=== PATIENT | female | born 1990 | race Caucasian/White ===

== ENCOUNTER 2018-03-23 18:45 | Outpatient (CLI) | payer OTHER | END 2018-03-23 20:36 | disposition home or self-care (01) | LOC: M LDO 18:45 | DX: O26.893 Other specified pregnancy related conditions, third trimester (principal); R10.30 Lower abdominal pain, unspecified; M54.5 Low back pain; O47.03 False labor before 37 completed weeks of gestation, third trimester; Z3A.35 35 weeks gestation of pregnancy | CPT/HCPCS: 59025 ==

== ENCOUNTER 2018-04-11 21:50 | Outpatient (CLI) | payer OTHER | END 2018-04-12 01:43 | disposition home or self-care (01) | LOC: M LDO 21:50 | DX: O47.1 False labor at or after 37 completed weeks of gestation (principal); O26.893 Other specified pregnancy related conditions, third trimester; M54.5 Low back pain; Z3A.38 38 weeks gestation of pregnancy | CPT/HCPCS: 59025 ==

== ENCOUNTER 2018-04-17 12:18 | Inpatient (IN) | payer OTHER ==
[2018-04-17] MEDS: LR 1,000 ML IV (13:38)
[2018-04-17] MEDS: OXYTOCIN DRIP 30 UNITS in APPROPRIATE DILUENT 1 EA IV (13:39)
[2018-04-17 13:48] LABS: HEMATOCRIT 28.8 % (36.0-47.0); HEMOGLOBIN 9.3 g/dl (12.0-15.5); MEAN CORPUSCULAR HGB CONC 32.3 g/dl (32.0-36.5); MEAN CORPUSCULAR VOLUME 89.7 fl (80.0-96.0); PLATELET COUNT, AUTOMATED 141 10^3/uL (150-450); RED BLOOD COUNT 3.21 10^6/uL (4.00-5.40); RED CELL DISTRIBUTION WIDTH 13.4 % (11.5-14.5); WHITE BLOOD COUNT 5.2 10^3/uL (4.0-10.0)
[2018-04-17] MEDS: LACTATED RINGER'S 1000 ML IV (17:54)
[2018-04-17] MEDS ORDERED: FENTANYL 2MCG/ML ROPIVACAINE 0.2% IN 0.9% NACL 200ML IVBAG As Ordered (18:27)
[2018-04-17] MEDS: FENTANYL/ROPIVACAINE/NACL BAG 200 ML EPIDURAL (18:38)
[2018-04-17] MEDS ORDERED: LACTATED RINGER'S 1000 ML IV (18:50)
[2018-04-17] MEDS ORDERED: EPIDURAL COMMENT XX (18:50)
[2018-04-17] MEDS ORDERED: REFRIGERATOR IV KEYS XX (18:50)
[2018-04-17] MEDS ORDERED: NALOXONE INJ 0.4 MG/1 ML VIAL (J2310) IV (18:50)
[2018-04-17] MEDS ORDERED: ePHEDrine SULFATE 25 MG/5 ML(5MG/ML) SYRINGE IV (18:50)
[2018-04-17] MEDS ORDERED: diphenhydrAMINE INJ 50MG/ML VIAL (J1200) IV (18:50)
[2018-04-17] MEDS ORDERED: EPIDURAL/PCA KEYS XX (18:50)
[2018-04-17] MEDS: ONDANSETRON 4MG/2ML VIAL (J2405) IV (21:51)
[2018-04-18] MEDS ORDERED: METHYLERGONOVINE MALEATE 0.2 MG TAB PO (00:45)
[2018-04-18] MEDS ORDERED: MOM 30ML SUSPENSION UDC PO (00:45)
[2018-04-18] MEDS ORDERED: ANUSOL HC CREAM 30GM TOP (00:45)
[2018-04-18] MEDS ORDERED: MEASLES,MUMPS,RUBELLA VACCINE INJ (MMR-II) (90707) SC (00:45)
[2018-04-18] MEDS ORDERED: DIBUCAINE 1% OINTMENT 30GM TOP (00:45)
[2018-04-18] MEDS ORDERED: RHOGAM 300 MCG (1500 IU) INJ (J2790) IM (00:45)
[2018-04-18] MEDS: IBUPROFEN 800 MG TAB PO ×2 (02:08→15:54)
[2018-04-18] MEDS: ACETAMINOPHEN 500 MG TAB PO (07:23)
[2018-04-18] MEDS: PRENATAL VITAMINS CHEWABLE TABLET PO (07:24)
[2018-04-18] MEDS: DOCUSATE SODIUM 100 MG CAP PO (07:24)
[2018-04-18] MEDS: SIMETHICONE 80 MG CHEW TAB PO (08:50)
[2018-04-18] MEDS ORDERED: INFLUENZA QUADRIVALENT PF VACCINE 0.5ML SYRINGE (90686) IM ×2 (09:00→12:00)
[2018-04-18] MEDS: FERROUS SULFATE 325MG TAB PO (12:00)
[2018-04-19] MEDS: IBUPROFEN 800 MG TAB PO (01:37)
[2018-04-19] MEDS: PRENATAL VITAMINS CHEWABLE TABLET PO (08:24)
[2018-04-19] MEDS: FERROUS SULFATE 325MG TAB PO (08:24)
[2018-04-19] MEDS: INFLUENZA QUADRIVALENT PF VACCINE 0.5ML SYRINGE (90686) IM (08:25)
== END 2018-04-19 10:14 | disposition home or self-care (01) | DRG 807 ==
LOC: M LDI 12:18 → M OBS 04-18 02:45 → M LDI 18:18
PROVIDERS: Advanced Practice Midwife
PROC: 10E0XZZ Delivery of Products of Conception, External Approach (ICD-10-PCS; principal; 2018-04-18)
PROC: 0HQ9XZZ Repair Perineum Skin, External Approach (ICD-10-PCS; 2018-04-18)
PROC: 10907ZC Drainage of Amniotic Fluid, Therapeutic from Products of Conception, Via Natural or Artificial Opening (ICD-10-PCS; 2018-04-18)
DX: O69.82X0 Labor and delivery complicated by other cord entanglement, without compression, not applicable or unspecified (principal); Z37.0 Single live birth; Z3A.39 39 weeks gestation of pregnancy; O70.0 First degree perineal laceration during delivery

== ENCOUNTER → 2018-08-24 | Outpatient (REF) | payer OTHER ==
[~2018-08-24] MED LIST: ACET500T15 PO; MAPA500T2 PO; MOTR200T44 PO; PEPC10TA6 PO; PRENTAB9 PO
[2018-08-24 15:27] LABS: CHLAMYDIA DNA AMPLIFICATION NEGATIVE (NEGATIVE); GC DNA AMPLIFICATION NEGATIVE (NEGATIVE)
== END ==
LOC: M LAB REF 13:00
PROVIDERS: ATTEND Advanced Practice Midwife
DX: Z30.430 Encounter for insertion of intrauterine contraceptive device (principal)

== ENCOUNTER → 2018-09-27 | Outpatient (CLI) | payer OTHER ==
[2018-09-27 14:02] LABS: BASO % 0.5 % (0.0-1.0); EOS % 1.1 % (0.0-3.0); HEMATOCRIT 39.5 % (36.0-47.0); HEMOGLOBIN 12.8 g/dl (12.0-15.5); LYMPH # 1.5 10^3/uL (1.5-6.5); LYMPH % 40.7 % (24.0-44.0); MEAN CORPUSCULAR HEMOGLOBIN 30.2 pg (27.0-33.0); MEAN CORPUSCULAR HGB CONC 32.4 g/dl (32.0-36.5); MEAN CORPUSCULAR VOLUME 93.2 fl (80.0-96.0); MONO # 0.4 10^3/uL (0.0-0.8); MONO % 11.6 % (0.0-5.0); NEUTROPHILS # 1.7 10^3/uL (1.8-7.7); NEUTROPHILS % 45.8 % (36.0-66.0); PLATELET COUNT, AUTOMATED 176 10^3/uL (150-450); RED BLOOD COUNT 4.24 10^6/uL (4.00-5.40); WHITE BLOOD COUNT 3.7 10^3/uL (4.0-10.0)
[2018-09-27 14:08] LABS: ALBUMIN 4.3 GM/DL (3.2-5.2); ALT/SGPT 14 U/L (12-78); BILIRUBIN,TOTAL 0.4 MG/DL (0.2-1.0); BLOOD UREA NITROGEN 11 MG/DL (7-18); CALCIUM LEVEL 9.3 MG/DL (8.5-10.1); CARBON DIOXIDE LEVEL 29 MEQ/L (21-32); CHLORIDE LEVEL 106 MEQ/L (98-107); CHOLESTEROL LEVEL 181 MG/DL (<200); CHOLESTEROL RISK RATIO 2.784 (<5); CREATININE FOR GFR 0.72 MG/DL (0.55-1.30); FREE T4 0.96 NG/DL (0.76-1.46); GLOMERULAR FILTRATION RATE > 60.0 (>60); GLUCOSE, FASTING 82 MG/DL (70-100); HDL CHOLESTEROL 65 MG/DL (>40); LDL CHOLESTEROL 102 MG/DL (<100); NON-HDL-C 116 MG/DL; POTASSIUM SERUM 4.2 MEQ/L (3.5-5.1); SODIUM LEVEL 138 MEQ/L (136-145); TOTAL PROTEIN 7.4 GM/DL (6.4-8.2); TRIGLYCERIDES LEVEL 68 MG/DL (<150)
== END ==
LOC: M SMT 10:10
PROVIDERS: ATTEND Physician Assistant
DX: Z13.29 Encounter for screening for other suspected endocrine disorder (principal)

== ENCOUNTER → 2019-03-17 | Outpatient (CLI) | payer OTHER ==
--- NOTE | 2019-03-17 09:39 | REP ---
Pelvic sonography: History: Dyspareunia. Left-sided pain. Unspecified ovarian cyst. Findings: Transabdominal and transvaginal scanning are performed. Uterus is normal in size with dimensions of 7.4 x 3.5 x 4.8 cm endometrial stripe 0.7 cm thick. The right ovary surgically absent. The left ovarian dimensions are 5.3 x 2.2 x 2.4 cm. There are multiple small follicles in the left ovary. No cul-de-sac fluid. Impression: No abnormality noted. Right ovary surgically absent. Electronically Signed by Darian Fairchild MD 03/17/2019 07:34 P
== END ==
LOC: M LRY 07:58
PROVIDERS: ATTEND Obstetrics & Gynecology
DX: N83.209 Unspecified ovarian cyst, unspecified side (principal)

== ENCOUNTER → 2019-09-12 | Outpatient (CLI) | payer OTHER | LOC: M LABSMTC 10:30 | PROVIDERS: ATTEND Family Medicine | DX: Z11.59 Encounter for screening for other viral diseases (principal); Z20.828 Contact with and (suspected) exposure to other viral communicable diseases ==

== ENCOUNTER → 2020-08-27 | Outpatient (REF) | payer OTHER ==
[2020-08-27 14:44] LABS: HEMATOCRIT 37.5 % (36.0-47.0); HEMOGLOBIN 12.7 g/dl (12.0-15.5); MEAN CORPUSCULAR HEMOGLOBIN 31.5 pg (27.0-33.0); MEAN CORPUSCULAR HGB CONC 33.9 g/dl (32.0-36.5); MEAN CORPUSCULAR VOLUME 93.1 fl (80.0-96.0); PLATELET COUNT, AUTOMATED 186 10^3/uL (150-450); RED BLOOD COUNT 4.03 10^6/uL (4.00-5.40)
[2020-08-27 15:40] LABS: CHLAMYDIA DNA AMPLIFICATION NEGATIVE (NEGATIVE); GC DNA AMPLIFICATION NEGATIVE (NEGATIVE)
[2020-08-27 16:04] LABS: HEPATITIS C VIRUS ABY INDEX < 0.0 INDEX (<0.8); HIV 1&2 SCREEN CENTAUR NEGATIVE (NEGATIVE)
== END ==
LOC: M PLALAB 10:26
PROVIDERS: ATTEND Obstetrics & Gynecology
DX: Z36.89 Encounter for other specified antenatal screening (principal); Z34.91 Encounter for supervision of normal pregnancy, unspecified, first trimester

== ENCOUNTER → 2020-10-21 | Outpatient (CLI) | payer OTHER ==
--- NOTE | 2020-10-22 17:10 | REP ---
INDICATION: ANATOMY COMPARISON: None. TECHNIQUE: Transabdominal obstetrical ultrasound with color Doppler evaluation. FINDINGS: Examination demonstrates a single live intrauterine in cephalic presentation. motion is identified by technologist. Placenta is noted anterior and grade 1 without evidence for placenta previa or abruption. Amniotic fluid volume is normal. Cervix measures 3.2 cm in length and appears closed. There is a small cystic area along the posterior aspect of the uterus and possible posterior succenturiate lobe.. Gestational age by LMP 18 weeks 6 days with JORGE 03/18/2021. Gestational age by current measurements 18 weeks 4 days with JORGE 03/20/2021. FHR equals 155 beats per minute. Estimated weight 242 grams (25thpercentile). Anatomical assessment demonstrates normal structures including cranium, choroid plexus, cavum, cerebellum/posterior fossa, lungs, four-chamber heart, diaphragm, stomach, cord insertion/three-vessel cord, kidneys/bladder, spine, and extremities. IMPRESSION: 1. Possible posterior succenturiate lobe to the placenta and cystic area which may represent placental interiano. Consider follow-up. 2. Limited evaluation of the facial features and cardiac ventricular outflow tracts warrant follow-up. <Electronically signed by Alvaro Hill > 10/22/20 [id number]
== END ==
LOC: M WHC 08:25
PROVIDERS: ATTEND Obstetrics & Gynecology
DX: Z34.82 Encounter for supervision of other normal pregnancy, second trimester (principal)

== ENCOUNTER → 2020-11-20 | Outpatient (CLI) | payer OTHER ==
--- NOTE | 2020-11-20 13:56 | REP ---
INDICATION: F/U ANATOMY. COMPARISON: Comparison obstetric sonography October 21, 2020.. TECHNIQUE: Transabdominal obstetric sonography. FINDINGS: Scanning through the gravid uterus demonstrates a viable single intrauterine gestation in cephalic lie. motion is observed and heart rate is recorded at 146 beats per minute. A anterior placenta is seen, grade 0, without evidence of placenta previa. Closed cervical length is measured at 3.6 cm transabdominally. No extrauterine abnormality is observed. Amniotic fluid is subjectively normal. Four-chamber heart, left ventricular outflow tract, right ventricular outflow tract, face, facial profile, nose and lips are visualized today and are felt to be unremarkable. These structures had been less than optimally identified previously.. Biometry chart: BPD 5.5 cm, 22 weeks 6 days Head circumference 20.6 cm, 22 weeks 5 days Abdominal circumference 19.2 cm, 24 weeks 0 days Femur length 4.1 cm, 23 weeks 1 day Humeral length 3.7 cm, 22 weeks 5 days HC AC ratio normal 1.07 Cephalic index normal 0.74 Estimated weight 598 g, 1 lb 5 oz, 59th percentile for 23 weeks 1 day IMPRESSION: Viable single intrauterine gestation at 23 weeks 1 days by today's composite sonographic criteria. JORGE by today's sonography March 18, 2021. No complication identified. Expected gestational age estimate based on known JORGE of March 18, 2021 is 23 weeks 1 day. In conjunction with the prior study, anatomic survey is felt to be complete. <Electronically signed by Shon Fairchild > 11/20/20 [id number]
== END ==
LOC: M WHC 10:46
PROVIDERS: ATTEND Obstetrics & Gynecology
DX: Z34.82 Encounter for supervision of other normal pregnancy, second trimester (principal)

== ENCOUNTER → 2020-12-19 | Outpatient (CLI) | payer OTHER ==
[2020-12-19 13:18] LABS: HEMATOCRIT 35.7 % (36.0-47.0); HEMOGLOBIN 11.7 g/dl (12.0-15.5); MEAN CORPUSCULAR HEMOGLOBIN 31.9 pg (27.0-33.0); MEAN CORPUSCULAR HGB CONC 32.8 g/dl (32.0-36.5); MEAN CORPUSCULAR VOLUME 97.3 fl (80.0-96.0); PLATELET COUNT, AUTOMATED 132 10^3/uL (150-450); RED BLOOD COUNT 3.67 10^6/uL (4.00-5.40); WHITE BLOOD COUNT 7.1 10^3/uL (4.0-10.0)
== END ==
LOC: M PLALAB 11:20
PROVIDERS: ATTEND Advanced Practice Midwife
DX: O99.342 Other mental disorders complicating pregnancy, second trimester (principal)
CPT/HCPCS: 36415; 82950; 85027; 86850; 86900; 86901; J2790

== ENCOUNTER 2021-02-06 16:46 | Observation (INO) | payer OTHER ==
[~2021-02-06] VITALS: Ht 175.3 cm; Wt 81.4 kg
[2021-02-06] VITALS (10 sets, daily range): BP systolic 115–143; BP diastolic 64–82
[2021-02-06] MEDS ORDERED: ADDE12.5 PO (17:15)
[2021-02-06] MEDS ORDERED: REGL5TAB2 PO (17:15)
[2021-02-06] MEDS ORDERED: HOME MED LIST COMPLETE! XX SCH (17:20)
[2021-02-06] MEDS ORDERED: LR 1,000 ML IV ONE (17:25)
[2021-02-06] MEDS ORDERED: TERBUTALINE SULFATE 1 MG/ML VIAL (J3105) SC STA (20:09)
[2021-02-06] MEDS ORDERED: BUTORPHANOL 2 MG/ML INJ (J0595) IV ONE (20:10)
[2021-02-06] MEDS ORDERED: PROMETHAZINE INJ 25 MG/ML VIAL (J2550) IV ONE (20:10)
--- NOTE | 2021-02-06 20:17 | IPNPDOC ---
Obstetrical Progress Note Date of Service Feb 06, 2021 Subjective 30-year-old -0-0-3 at 34+2 weeks gestation. She has been having lower pelvic pain/pressure, low back pain, and frequent uterine contractions that are uncomfortable all day long. States she had intercourse last night and had a small amount of bleeding shortly thereafter. The bleeding did not persist. She denies any recent passage of bright red blood or blood clot. She denies any loss of fluid. She reports regular movement. She was seen in the office earlier today and was evaluated given these complaints. She was found to be 1 cm dilated 75% effaced and -3 station. Since she was still vin painfully and appearing uncomfortable she was sent to the labor and delivery for further evaluation. Review of systems: Denies fever, chills, headache, lightheadedness/dizziness, nausea, vomiting, shortness of breath, chest pain. 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 A/P: 30-year-old G4, P3 at 34+2 weeks gestation with contractions but no evidence of active labor/advanced cervical dilation or ruptured membranes. Reassuring status. -Terbutaline 0.25 mg SC x1 for symptomatic relief -Stadol and Phenergan for continued relief/rest -Tylenol 1000 mg p.o. every 6 hours as needed for pain -IV hydration -Continuous monitoring -CBC, coag panel, KB ordered -Betamethasone course ordered Jose Villegas DO Objective Vital Signs Date Time Temp Pulse Resp B/P (MAP) Pulse Ox O2 Delivery O2 Flow Rate FiO2 02/06/21 19:01 71 16 133/82 (99) 02/06/21 17:07 97.9 DIMA VILLEGAS DO Feb 06, 2021 20:17
[2021-02-06] MEDS: ACETAMINOPHEN 500 MG TAB PO PRN (20:24)
[2021-02-06] MEDS: LR 1,000 ML IV SCH (20:25)
[2021-02-06 20:42] LABS: HEMATOCRIT 32.6 % (36.0-47.0); HEMOGLOBIN 10.9 g/dl (12.0-15.5); MEAN CORPUSCULAR HGB CONC 33.4 g/dl (32.0-36.5); MEAN CORPUSCULAR VOLUME 95.6 fl (80.0-96.0); PLATELET COUNT, AUTOMATED 122 10^3/uL (150-450); RED BLOOD COUNT 3.41 10^6/uL (4.00-5.40); WHITE BLOOD COUNT 7.3 10^3/uL (4.0-10.0)
[2021-02-06 20:52] LABS: INR 1.03; PROTHROMBIN TIME 13.9 SECONDS (12.7-14.5)
[2021-02-06 20:53] LABS: PARTIAL THROMBOPLASTIN TIME 26.7 SECONDS (25.9-37.0)
[2021-02-06] MEDS: BETAMETHASONE SOLUSPAN 6MG/ML 5ML VIAL (J0702 PER 3MG) IM SCH (21:35)
[2021-02-07] VITALS (12 sets, daily range): BP systolic 112–133; BP diastolic 55–77
[2021-02-07] MEDS ORDERED: CALCIUM CARBONATE 500 MG CHEW U/D PO PRN (01:25)
[2021-02-07] MEDS: LR 1,000 ML IV SCH ×3 (04:13→17:14)
[2021-02-07] MEDS: ACETAMINOPHEN 500 MG TAB PO PRN (04:14)
[2021-02-07 09:38] LABS: APPEARANCE, URINE CLEAR (CLEAR); BACTERIA, URINE AUTO NEGATIVE (NEGATIVE); BILIRUBIN, URINE AUTO NEGATIVE (NEGATIVE); BLOOD, URINE BLOOD NEGATIVE (NEGATIVE); COLOR, URINE STRAW (YELLOW); GLUCOSE, URINE (UA) AUTO NEGATIVE (NEGATIVE); KETONE, URINE AUTO 1+ mg/dL (NEGATIVE); LEUKOCYTE ESTERASE, URINE AUTO NEGATIVE (NEGATIVE); MUCUS, URINE SMALL (NEGATIVE); NITRITE, URINE AUTO NEGATIVE (NEGATIVE); PROTEIN, URINE AUTO NEGATIVE (NEGATIVE); RBC, URINE AUTO 0 /HPF (0-3); SPECIFIC GRAVITY URINE AUTO 1.008 (1.002-1.035); SQUAMOUS EPITHELIAL CELL UR AU 0 /HPF (0-6); UROBILINOGEN, URINE AUTO 0.2 mg/dL (0.0-2.0); WBC, URINE AUTO 0 /HPF (0-3)
--- NOTE | 2021-02-07 10:11 | REP ---
INDICATION: bilateral flank pain. Patient at approximately 34 weeks gestation. COMPARISON: None. TECHNIQUE: Urinary tract sonography. FINDINGS: Scanning at the level of the urinary bladder shows no abnormality. Emptying ureteral jets are confirmed into the urinary bladder from both ureters. Renal cortical echogenicity pattern is normal bilaterally and contours are smooth. There is mild high hydronephrosis and hydroureter on the right. No hydronephrosis on the left. No stone, mass, or cyst seen in either kidney. The right kidney measures 13.0 x 7.1 x 6.3 cm. Left renal dimensions are 11.7 x 6.1 x 6.2 cm. heart rate is recorded during the examination at 136 beats per minute. IMPRESSION: Mild right-sided hydronephrosis and hydroureter. Emptying ureteral jets are confirmed from both ureters on color Doppler interrogation of the bladder lumen. Otherwise negative. <Electronically signed by Shon Fairchild > 02/07/21 1007
[2021-02-07] MEDS ORDERED: CYCLOBENZAPRINE 10MG TABLET PO ONE (13:00)
[2021-02-07] MEDS ORDERED: PERCOCET 5MG/325MG TAB PO PRN (14:10)
[2021-02-07] MEDS ORDERED: PERCOCET PO (18:37)
[2021-02-07] MEDS ORDERED: ADDE12.5 PO (18:37)
[2021-02-07] MEDS: BETAMETHASONE SOLUSPAN 6MG/ML 5ML VIAL (J0702 PER 3MG) IM SCH (18:43)
[2021-02-07] MEDS ORDERED: ADDE1TAB14 PO (19:00)
--- NOTE | 2021-02-07 19:11 | IPNPDOC ---
Text Note Date of Service The patient was seen on 02/07/21. NOTE Subjective: Damien is a 30-year old who is 34.3 weeks gestation. She was sent over to L&D with complaints of cramping, back pain, and bright red bleeding that occurred after having sex. She continued to be uncomfortable and was seen at her appointment and found to be 1 cm and 75% effaced. She was found to have dark brown blood with exam. She was sent over to L&D. She received betamethasone IM and is beta complete. Her contractions have decreased. She does report back pain and has a history of kidney stones. Her pain improved with a muscle relaxer and a Percocet. Patient reports she desires to go home. Objective: Labs, VS, imaging: see below. FHR: 130, moderate variability, positive accelerations, no decelerations. [place]: occasional contractions General: Alert and oriented. Does not appear to be in any distress. Respiratory: Regular rate and rhythm. No use of accessory muscles. Abdomen: gravid, soft and not tender with palpation SVE: no change after 24 hours, no show Assessment: IUP at 34.3 weeks gestation, back pain, right hydronephrosis and hydroureter, not in labor. Plan: Patient discharged to home with precautions. She is to follow-up with her routine OB appointment. Reviewed any changes including severe back pain, body aches, chills and fever that she should call. Reviewed access to care, kick count, labor signs and danger signs to report. VS,Fishbone, I+O VS, Fishbone, I+O Laboratory Tests 02/06/21 20:25 Vital Signs Date Time Temp Pulse Resp B/P (MAP) Pulse Ox O2 Delivery O2 Flow Rate FiO2 02/07/21 17:15 96 119/65 (83) 02/07/21 15:03 98.3 02/07/21 14:55 18 02/07/21 14:25 Room Air Item Value Date Time Urine Color STRAW 02/07/21923 Urine Appearance CLEAR 02/07/21923 Urine pH 7.0 UNITS 02/07/21923 Urine Specific [place] 1.008 02/07/21923 Urine Protein NEGATIVE mg/dL 02/07/21923 Urine Glucose (Auto)(UA) NEGATIVE mg/dL 02/07/21923 Urine Ketones (Auto) 1+ mg/dL H 02/07/21923 Urine Blood NEGATIVE 02/07/21923 Urine Nitrite NEGATIVE 02/07/21923 Urine Bilirubin NEGATIVE 02/07/21923 Urine Urobilinogen 0.2 mg/dL 02/07/21923 Urine Leukocyte Esterase (Auto) NEGATIVE 02/07/21923 Urine WBC (Auto) 0 /HPF 02/07/21923 Urine RBC (Auto) 0 /HPF 02/07/21923 Urine Hyaline Casts (Auto) 0 /LPF 02/07/21923 Urine Bacteria (Auto) NEGATIVE 02/07/21923 Urine Squamous Epithelial Cells 0 /HPF 02/07/21923 Urine Mucus (Auto) SMALL 02/07/21923 NAME: DAMIEN PEREZ DATE OF : 1990 AGE: 30 SEX: F REPORT #: [id number] ROOM: [facility] TECHNOLOGIST: [facility] DOCTOR: ALEXANDRIA KELLY CNM Ordered for Date&Time: 02/07/21854 cc: [~ rep ct ivnm] Service Date&Time: 02/07/21950 EXAMINATION REQUESTED: RENAL US REASON FOR PATIENT VISIT: LABOR CHECK REASON FOR EXAM/COMMENT: bilateral flank pain INDICATION: bilateral flank pain. Patient at approximately 34 weeks gestation. COMPARISON: None. TECHNIQUE: Urinary tract sonography. FINDINGS: Scanning at the level of the urinary bladder shows no abnormality. Emptying ureteral jets are confirmed into the urinary bladder from both ureters. Renal cortical echogenicity pattern is normal bilaterally and contours are smooth. There is mild high hydronephrosis and hydroureter on the right. No hydronephrosis on the left. No stone, mass, or cyst seen in either kidney. The right kidney measures 13.0 x 7.1 x 6.3 cm. Left renal dimensions are 11.7 x 6.1 x 6.2 cm. heart rate is recorded during the examination at 136 beats per minute. IMPRESSION: Mild right-sided hydronephrosis and hydroureter. Emptying ureteral jets are confirmed from both ureters on color Doppler interrogation of the bladder lumen. Otherwise negative. <Electronically signed by Shon Fairchild > 02/07/21 1007 ALEXANDRIA KELLY CNM Feb 07, 2021 19:10
--- OUTSIDE RECORDS SUMMARY | 2021-04-03 13:28 | CCD ---
Author Author [facility] Organization [facility] Address Unknown Phone Unavailable Care Team Providers Care Wharf Labourer Name Role Phone Charity Mays Unavailable PROBLEMS Type Condition ICD9-CM Code [id number] Code Onset Dates Condition S tatus W/U Status Risk SNOMED Code Notes Problem Supervision of other normal Z34.80 Ac tive confirm [id number] Problem ADHD F90.9 Active confirmed [id number] ALLERGIES No Known Allergies ENCOUNTERS from 1992 to 2021-03-31 Encounter Location Date Provider Diagnosis [facility] [address] [place] [address] [place] [address] Feb, Charity Mays Mental disorder affe cting in third trimester O99.343 ; Attention-deficit hyperactivity disorder, unspecified type F90.9 and 39 weeks gestation of Z3A.39 IMMUNIZATIONS Vaccine Route Administration Date Status TDAP 0.5mL Boostrix IM Intramuscular Jan 09, 2021 Administere d SOCIAL HISTORY Tobacco Use: Social History Observation [...] FOR REFERRAL No Information VITAL SIGNS Weight 197 lbs Feb, Weight-kg 89.36 kg Feb, Height 69 in 14 Feb, 2021 BMI 29.092 kg/m2 Feb, Blood pressure systolic 110 mm Hg Feb, Blood pressure diastolic 78 mm Hg Feb, MEDICATIONS Medication SIG (Take, Route, Frequency, Duration) Notes Start Da te End Date Status Adderall 10 MG 1 tablet Orally Twice a day for 30 days Feb, Active Vitamin 27-0.8 MG 1 tablet Orally Once a day Active Omeprazole 20 MG 1 capsule 30 minutes before morning meal Orally Once a day for 30 day(s) Dec, Active Dextroamphetamine Sulfate 10 MG 1 [...] Notes Treatment Notes Treatm ent Clinical Notes Feb, Mental disorder affecting pr egnancy in third trimester (ICD-10 - O99.343) Feb, Attention-deficit hyperactiv ity disorder, unspecified type (ICD-10 - F90.9) Feb, 39 weeks gestation of (ICD-10 - Z3A.39 ) PLAN OF TREATMENT No Information Insurance Providers Payer Name Payer Address Payer Phone Insured Name Patient Relati onship to Insured Coverage Start Date Coverage End Date [address] [phone] DAMIEN PEREZ
--- OUTSIDE RECORDS SUMMARY | 2021-04-03 13:28 | CCD ---
Author Author [facility] Organization [facility] Address Unknown Phone Unavailable Care Team Providers Care Mining Engineering Technologist Name Role Phone Charity Mays Unavailable PROBLEMS Type Condition ICD9-CM Code [id number] Code Onset Dates Condition S tatus W/U Status Risk SNOMED Code Notes Problem Supervision of other normal Z34.80 Ac tive confirm [id number] Problem ADHD F90.9 Active confirmed [id number] ALLERGIES No Known Allergies ENCOUNTERS from 1992 to 2021-03-19 Encounter Location Date Provider Diagnosis [facility] [address] [place] [address] [place] [address] Feb, Charity Mays Mental disorder affe cting in third trimester O99.343 ; Attention-deficit hyperactivity disorder, unspecified type F90.9 and 38 weeks gestation of Z3A.38 IMMUNIZATIONS Vaccine Route Administration Date Status TDAP [...] FOR REFERRAL No Information VITAL SIGNS Weight 196.4 lbs Feb, Weight-kg 89.09 kg Feb, Height 69 in Feb, BMI 29.003 kg/m2 Feb, Blood pressure systolic 110 mm Hg Feb, Blood pressure diastolic 80 mm Hg Feb, MEDICATIONS Medication SIG (Take, [...] disorder, unspecified type (ICD-10 - F90.9) Feb, 38 weeks gestation of (ICD-10 - Z3A.38 ) PLAN OF TREATMENT No Information Insurance Providers Payer Name Payer Address Payer Phone Insured Name Patient Relati onship to Insured Coverage Start Date Coverage End Date [address] [phone] DAMIEN PEREZ self
--- OUTSIDE RECORDS SUMMARY | 2021-04-03 13:28 | CCD | Continuity of Care Document ---
Author Mitzi Paez Organization [place] [address] Phone [phone] Care Team Providers Care Orthotic Aide Name Role Phone Ana Calix D.O. AUTM Kendall Mendoza M.D. AUTM [phone] Problems Active Problems Provider Date Attention deficit hyperactivity disorder, combined type RUFINA Butcher Onset: 08/25/2018 Suspected hypothyroidism RUFINA Ray Onset: 08/26/19 19 Irritable bowel syndrome characterized by constipation RUFINA Figueroa Onset: 08/25/2018 Mild recurrent major depression RUFINA Ray Onset: 0 11/13/2019 Generalized anxiety disorder RUFINA Ray Onset: 10/29 Vitamin D deficiency Ana Calix D.O. Onset: 04/18 Social History Type Date Description Comments Sex Unknown ETOH Use Currently consumes alcohol 1-2 p er week Tobacco Use Start: Unknown Patient has never smoked Recreational Drug Use Denies Drug Use Smoking Status Reviewed: 01/22/20 Patient has never smoked Exercise Type/Frequency Walks 3 times a week Sun Exposure Uses sunscreen Seat Belt/Car Seat Always uses seat belt Allergies and adverse reactions Description No Known Drug Allergies Medications Active Medications SIG Qnty Indications Ordering Provide r Date Ritalin 10mg Tablets take one tablet by mouth around 2 a m when working night shifts, as needed. 30tabs F90 .2 Ana Calix D.O. 07/12/[address] 1 by mouth every day 90caps K21.9 Jerry GruberO. 07/12 Mydayis 37.5mg Caps ER 24HR 1 by mouth every day. 30caps F90.2 Poonam Gruber.O. 06/20 Hydroxyzine HCL 25mg Tablets 1 tablet by mouth every 8 hours as needed 60tabs F41.1 Ana Cullen er, D.O. 11/13/2019 Ondansetron HCL 4mg Tablets 1 tablets by mouth every 6 hours as needed for nausea 14tabs Poonam Oneill.O. 10/18/2019 Fluticasone Propionate 50mcg/Act Suspension 2 spray each nostril once a day 16gm J31.0 Poonam Rodríguez.O. 05/15/2019 Multivitamin Adult Tablets 1 by mouth every day Unknown Medications Administered in Office Medication SIG Qnty Indications Ordering Provider Date Injection Ketorolac Tromethamine Per 15 MG (Toradol) Injection Jerry DuqueOTessa 01/22/2020 Immunizations CPT Code Status Date Vaccine Lot # [id number] Given 03/24/2021 Influenza Virus Vaccine, Quadrivalent, Slit Virus, Im Use [id number] Vital Signs Date Vital Result Comment 03/24/2021 10:30am BP Systolic 120 mmHg BP Diastolic 64 mmHg Height 68.1 inches 5'8.10" Weight 183.38 lb BMI (Body Mass Index) 27.8 kg/m2 Heart Rate 90 /min Respiratory Rate 18 /min Body Temperature 98.6 F O2 % BldC Oximetry 97 % [place] Body Weight 140 lb 07/12/2020 9:51am BP Systolic 130 mmHg BP Diastolic 78 mmHg Height 68.1 inches 5'8.10" Weight 167.50 lb BMI (Body Mass Index) 25.4 kg/m2 Heart Rate 95 /min Respiratory Rate 16 /min Body Temperature 98.8 F O2 % BldC Oximetry 98 % [place] Body Weight 140 lb Results Description No Information Available Procedures Date Code Description Status 03/24/2021 16709 Office/Outpatient Established Mo d MDM 30-39 Min Completed Medical Devices Description No Information Available Encounters Type Date Location Provider Dx Diagnosis Office Visit 03/24/2021 10:30a Family Medicine [facility] RUFINA Ray F90.2 Attention-deficit hyperactiv ity disorder, combined type K21.9 Gastro-esophageal reflux dis ease without esophagitis Z23 Encounter for immunization Assessments Date Code Description Provider 03/24/2021 F90.2 Attention-deficit hyperactivity disorder, combined type RUFINA Ray 03/24/2021 K21.9 Gastro-esophageal reflux disease without esophagitis RUFINA Ray 03/24/2021 Z23 Encounter for immunization RUFINA Figueroa Plan of Treatment Future Appointment(s):* 06/26/2021 2:30 pm - RUFINA Ray at [facility] Functional Status Description No Information Available Mental Status Description No Information Available Referrals Description No Information Available
--- OUTSIDE RECORDS SUMMARY | 2021-04-03 13:28 | CCD | Continuity of Care Document ---
Author Mitzi Paez Organization Unknown Address [place] [address] Phone [phone] Care Team Providers Care Cow Buyer Name Role Phone Ana Calix D.O. AUTM Kendall Mendoza M.D. AUTM [phone] Problems Active Problems Provider Date Attention deficit [...] CPT Code Status Date Vaccine Lot # [id number] Given 03/24/2021 Influenza Virus Vaccine, Quadrivalent, Slit Virus, Im Use [id number] Vital Signs Date Vital Result Comment 03/24/2021 10:30am BP Systolic 120 mmHg BP Diastolic 64 mmHg Height 68.1 inches 5'8.10" Weight 183.38 lb BMI (Body Mass Index) 27.8 kg/m2 Heart Rate 90 /min Respiratory Rate 18 /min Body Temperature 98.6 F O2 % BldC Oximetry 97 % [place] Body Weight 140 lb 07/12/2020 9:51am BP Systolic 130 mmHg BP Diastolic 78 mmHg Height 68.1 inches 5'8.10" Weight 167.50 lb BMI (Body Mass Index) 25.4 kg/m2 Heart Rate 95 /min Respiratory Rate 16 /min Body Temperature 98.8 F O2 % BldC Oximetry 98 % [place] Body Weight 140 lb Results Description No Information Available Procedures Date Code Description Status 03/24/2021 78507 Office/Outpatient Established Mo d MDM 30-39 Min Completed Medical Devices Description No Information Available Encounters Type Date Location Provider Dx Diagnosis Office Visit 03/24/2021 10:30a Family Medicine [facility] RUFINA Ray F90.2 Attention-deficit hyperactiv ity disorder, combined type K21.9 Gastro-esophageal reflux dis ease without esophagitis Z23 Encounter for immunization Assessments Date Code Description Provider 03/24/2021 F90.2 Attention-deficit hyperactivity disorder, combined type RUFINA Ray 03/24/2021 K21.9 Gastro-esophageal reflux disease without esophagitis RUFINA Ray 03/24/2021 Z23 Encounter for immunization RUFINA Figueroa Plan of Treatment Future Appointment(s):* 06/26/2021 2:30 pm - RUFINA Ray at [facility] Functional Status Description No Information Available Mental Status Description No Information Available Referrals Description No Information Available
--- OUTSIDE RECORDS SUMMARY | 2021-04-03 13:28 | CCD | Continuity of Care Document ---
Author Mitzi Paez Organization Unknown [place] [address] Phone [phone] Care Team Providers Care Waxer Name Role Phone Ana Calix D.O. AUTM [phone] Kendall Mendoza M.D. AUTM [phone] Problems Active Problems Provider Date Attention deficit [...] CPT Code Status Date Vaccine Lot # [id number] Given 03/24/2021 Influenza Virus Vaccine, Quadrivalent, Slit Virus, Im Use [id number] Vital Signs Date Vital Result Comment 03/24/2021 10:30am BP Systolic 120 mmHg BP Diastolic 64 mmHg Height 68.1 inches 5'8.10" Weight 183.38 lb BMI (Body Mass Index) 27.8 kg/m2 Heart Rate 90 /min Respiratory Rate 18 /min Body Temperature 98.6 F O2 % BldC Oximetry 97 % [place] Body Weight 140 lb 07/12/2020 9:51am BP Systolic 130 mmHg BP Diastolic 78 mmHg Height 68.1 inches 5'8.10" Weight 167.50 lb BMI (Body Mass Index) 25.4 kg/m2 Heart Rate 95 /min Respiratory Rate 16 /min Body Temperature 98.8 F O2 % BldC Oximetry 98 % [place] Body Weight 140 lb Results Description No Information Available Procedures Date Code Description Status 03/24/2021 51907 Office/Outpatient Established Mo d MDM 30-39 Min Completed Medical Devices Description No Information Available Encounters Type Date Location Provider Dx Diagnosis Office Visit 03/24/2021 10:30a Family Medicine [facility] RUFINA Ray F90.2 Attention-deficit hyperactiv ity [...]
--- OUTSIDE RECORDS SUMMARY | 2021-04-03 13:29 | CCD ---
Author Author [facility] Organization [facility] Address Unknown Phone Unavailable Care Team Providers Care News Production Supervisor Name Role Phone Charity Mays Unavailable PROBLEMS Type Condition ICD9-CM Code JOF37-SI Code Onset Dates Condition S tatus W/U Status Risk SNOMED Code Notes Problem Supervision of other normal Z34.80 Ac tive confirm [id number] Problem ADHD F90.9 Active confirmed [id number] ALLERGIES No Known Allergies ENCOUNTERS from 1992 to 2021-03-19 Encounter Location Date Provider Diagnosis [facility] [address] [place] [address] [place] [address] Feb, Charity Mays IMMUNIZATIONS Vaccine Route Administration [...] Information RESULTS No Results REASON FOR VISIT [facility] MEDICAL (GENERAL) HISTORY Type Description Date Medical History ADHD Surgical History Right ovary removed Surgical History Breast augmentation implants Hospitalization History childbirth Hospitalization History surgical related Goals Section No Information Health Concerns No Information MEDICAL EQUIPMENT No Information MENTAL STATUS No Information FUNCTIONAL STATUS No Information ASSESSMENTS No Information PLAN OF TREATMENT No Information Insurance Providers Payer Name Payer Address Payer Phone Insured Name Patient Relati onship to Insured Coverage Start Date Coverage End Date [address] [phone] DAMIEN PEREZ self
--- OUTSIDE RECORDS SUMMARY | 2021-04-03 13:29 | CCD ---
Author Author [facility] Organization [facility] Address Unknown Phone Unavailable Care Team Providers Care Inspector Shells Name Role Phone Charity Mays Unavailable PROBLEMS Type Condition ICD9-CM Code [id number] Code Onset Dates Condition S tatus W/U Status Risk SNOMED Code Notes Problem Supervision of other normal Z34.80 Ac tive confirm [id number] Problem ADHD F90.9 Active confirmed [id number] ALLERGIES No Known Allergies ENCOUNTERS from 1992 to 2021-03-17 Encounter Location Date Provider Diagnosis [facility] [address] [place] [address] [place] [address] Feb, Charity Mays IMMUNIZATIONS Vaccine Route Administration [...] Information RESULTS No Results REASON FOR VISIT Induction MEDICAL (GENERAL) HISTORY Type Description Date Medical [...] Coverage Start Date Coverage End Date [address] [phone] DAMIEN PEREZ self
--- OUTSIDE RECORDS SUMMARY | 2021-04-03 13:30 | CCD ---
Author Author [facility] Organization [facility] Address Unknown Phone Unavailable Care Team Providers Care Gas Main And Line Fitter Name Role Phone NO, PCP Unavailable Unavailable LETTIERE, A ENMANUEL PA Unavailable Unavailable LETTIERE, A ENMANUEL PA Unavailable Unavailable LETTIERE, A ENMANUEL PA Unavailable Unavailable LETTIERE, A NEMANUEL PA Unavailable Unavailable LETTIERE, A ENMANUEL PA [...] LAROCKCarter NP Unavailable Unavailable LAROCK, J KRZYSZTOF FINAL INSPECTION SUPERVISOR Unavailable Unavailable LAROCK, J KRZYSZTOF FINAL INSPECTION SUPERVISOR Unavailable Unavailable LAROCK, J KRZYSZTOF FINAL INSPECTION SUPERVISOR Unavailable Unavailable LAROCK, J KRZYSZTOF FINAL INSPECTION SUPERVISOR Unavailable Unavailable LAROCK, J KRZYSZTOF FINAL INSPECTION SUPERVISOR Unavailable Unavailable LAROCK, J KRZYSZTOF FINAL INSPECTION SUPERVISOR Unavailable Unavailable LAROCK, J KRZYSZTOF FINAL INSPECTION SUPERVISOR Unavailable Unavailable LAROCK, J KRZYSZTOF FINAL INSPECTION SUPERVISOR Unavailable Unavailable LAROCK, J KRZYSZTOF FINAL INSPECTION SUPERVISOR Unavailable Unavailable LAROCK, J KRZYSZTOF FINAL INSPECTION SUPERVISOR Unavailable Unavailable LAROCK, J KRZYSZTOF FINAL INSPECTION SUPERVISOR Unavailable Unavailable LAROCK, J KRZYSZTOF FINAL INSPECTION SUPERVISOR Unavailable Unavailable LAROCK, J KRZYSZTOF FINAL INSPECTION SUPERVISOR Unavailable Unavailable LAROCK, J KRZYSZTOF FINAL INSPECTION SUPERVISOR Unavailable Unavailable LAROCK, J KRZYSZTOF FINAL INSPECTION SUPERVISOR Unavailable Unavailable LAROCK, J KRZYSZTOF FINAL INSPECTION SUPERVISOR Unavailable Unavailable LAROCK, J KRZYSZTOF FINAL INSPECTION SUPERVISOR Unavailable Unavailable LAROCK, J KRZYSZTOF FINAL INSPECTION SUPERVISOR Unavailable Unavailable LAROCK, J KRZYSZTOF FINAL INSPECTION SUPERVISOR Unavailable Unavailable Evaristo, Jhonathan WYNN Unavailable Unavailable Evaristo, Jhonathan WYNN Unavailable Unavailable Evaristo, Jhonathan WYNN Unavailable Unavailable Evaristo, Jhonathan WYNN Unavailable Unavailable Jung, Jhonathan WYNN Unavailable Unavailable Evaristo, Jhonathan WYNN Unavailable Unavailable TURRIN, REYNALDO Unavailable Unavailable TURRIN, [...] is protected by Article 27-F of the [facility] Public Health law. If you continue you may have access to information: Regarding HIV / AIDS; Provided by facilities licensed or operated by the [facility] Office of Mental Health; or Provided by the [facility] Office for People With Developmental Disabilities. If such information is present, then the following [facility] mandated warning applies: This information has been [...] law may result in a fine or custodial sentence or both. A general authorization for the release of medical or other information is NOT sufficient authorization for further disc losure. Family History Family Member Name Family Member Gender Family Member Status Date o f Status Description Data Source(s) Unknown Male Problem MEDENT ([facility]) Unknown Unknown Problem MEDENT ([facility], ) Encounters Encounter Providers Location Date Indications Data Source(s ) Outpatient Attender: Enmanuel ALMARAZ [facility] 03/24/2021 10:30:00 AM EDT MEDENT ([facility]) [place] [address] [facility] [address] 03/18/2021 12:00:00 AM EDT eCW1 ([facility]) [place] [address] [facility] [address] 03/16/2021 12:00:00 AM EDT eCW1 ([facility]) (WC ESTOB) [facility] [address] [place] [address] 03/13/2021 12:00:00 AM EDT eCW1 ([facility]) [place] [address] [facility] [address] 03/11/2021 12:00:00 AM EDT eCW1 ([facility]) (WC ESTOB) [facility] [address] [place] [address] 03/06/2021 12:00:00 AM EDT eCW1 ([facility]) Outpatient Attender: KRZYSZTOF READ NP 07/2020 11:48:29 AM EDT - 03/02/2021 12:33:17 PM EDT Doc[facility] ([facility] ) (WC ESTOB) [facility] [address] [place] [address] 02/27/2021 12:00:00 AM EDT eCW1 ([facility]) (WC ESTOB) [facility] [address] [place] [address] 02/20/2021 12:00:00 AM EDT eCW1 ([facility]) (WC ESTOB) [facility] [address] [place] [address] 02/06/2021 12:00:00 AM EDT eCW1 ([facility]) (WC ESTOB) [facility] [address] [place] [address] 01/24/2021 12:00:00 AM EDT eCW1 ([facility]) [place] [address] [facility] [address] 01/22/2021 12:00:00 AM EDT eCW1 ([facility]) [place] [address] [facility] [address] 01/21/2021 12:00:00 AM EDT eCW1 ([facility]) ( ESTOB) [facility] Est [facility] [address] [place] [address] 01/09/2021 12:00:00 AM EDT eCW1 ([facility]) ( ESTOB) [facility] Est [facility] [address] [place] [address] 12/18/2020 12:00:00 AM EDT eCW1 ([facility]) [place] [address] [facility] [address] 12/12/2020 12:00:00 AM EDT eCW1 ([facility]) [place] [address] [facility] [address] 12/11/2020 12:00:00 AM EDT eCW1 ([facility]) [place] [address] [facility] [address] 12/09/2020 12:00:00 AM EDT eCW1 ([facility]) [place] [address] [facility] [address] 12/09/2020 12:00:00 AM EDT eCW1 ([facility]) [place] [address] [facility] [address] 11/13/2020 12:00:00 AM EDT eCW1 ([facility]) [place] [address] [facility] [address] 11/11/2020 12:00:00 AM EDT eCW1 ([facility]) Outpatient Attender: KRZYSZTOF READ NP 01/2021 11:07:41 AM EDT - 11/06/2020 12:24:00 PM EDT [facility] ([facility] ) [place] [address] [facility] [address] 11/06/2020 12:00:00 AM EDT eCW1 ([facility]) [place] [address] [facility] [address] 11/06/2020 12:00:00 AM EDT eCW1 ([facility]) [place] [address] [facility] [address] 11/06/2020 12:00:00 AM EDT eCW1 ([facility]) (WC ESTOB) [facility] Est [facility] [address] [place] [address] 10/30/2020 12:00:00 AM EDT eCW1 ([facility]) (WC ESTOB) W[facility] Est OB [address] [place] [address] 10/11/2020 12:00:00 AM EDT eCW1 ([facility]) [place] [address] [facility] [address] 10/08/2020 12:00:00 AM EDT eCW1 ([facility]) [place] [address] [facility] [address] 10/08/2020 12:00:00 AM EDT eCW1 ([facility]) [place] [address] [facility] [address] 10/03/2020 12:00:00 AM EDT eCW1 ([facility]) [place] [address] [facility] [address] 09/24/2020 12:00:00 AM EDT eCW1 ([facility]) [place] [address] [facility] [address] 09/23/2020 12:00:00 AM EDT eCW1 ([facility]) (WC ESTOB) [facility] Est [facility] [address] [place] [address] 09/19/2020 12:00:00 AM EDT eCW1 ([facility]) (WC ESTOB) [facility] Est OB [address] [place] [address] 09/11/2020 12:00:00 AM EDT eCW1 ([facility]) Unknown [address] [facility], [facility] [address] 09/10/2020 12:00:00 AM EDT eCW1 ([facility]) Emergency Attender: Jhonathan Jung MDConsultant: PCP NO 09/08/2020 05:09:00 PM EDT - 09/08/2020 07:30:[address] [facility] [place] Patient discharged. Emergency Attender: REYNALDO GUEVARAConsultant: PCP NO 07/29/2020 08:08:00 PM EST - 07/30/2020 12:07:00 AM EST [facility] Patient discharged. Outpatient Attender: Enmanuel ALMARAZ [facility] 07/12/2020 08:30:00 AM EST MEDENT ([facility]) Outpatient Attender: Enmanuel ALMARAZ [facility] 04/18/2020 09:30:00 AM EST MEDENT ([facility]) Outpatient Attender: ENMANUEL kearnsy 04/02/2020 11:00:00 AM EST MEDENT ([facility]) (WC 20ESGYN) WCenter 20 Min Est Analytical Research Chemist [address] [place] [address] 03/05/2020 12:00:00 AM EDT eCW1 ([facility]) Outpatient Attender: Enmanuel ALMARAZ [facility] 02/13/2020 09:30:00 AM EDT MEDENT ([facility]) Immunizations Vaccine Date Status Description Data Source(s) New in 2012. IIV4 03/24/2021 10:50:00 AM EDT completed MEDENT ([facility]) Tdap 01/09/2021 02:20:00 PM EDT completed e CW1 ([facility]) 01/09/2021 02:20:00 PM EDT completed e CW1 ([facility]) Tdap 01/09/2021 02:20:00 PM EDT completed e CW1 ([facility]) 01/09/2021 02:20:00 PM EDT completed e CW1 ([facility]) Tdap 01/09/2021 02:20:00 PM EDT completed e CW1 ([facility]) 01/09/2021 02:20:00 PM EDT completed e CW1 ([facility]) Tdap 01/09/2021 02:20:00 PM EDT completed e CW1 ([facility]) 01/09/2021 02:20:00 PM EDT completed e CW1 ([facility]) Tdap 01/09/2021 02:20:00 PM EDT completed e CW1 ([facility]) 01/09/2021 02:20:00 PM EDT completed e CW1 ([facility]) Tdap 01/09/2021 02:20:00 PM EDT completed e CW1 ([facility]) 01/09/2021 02:20:00 PM EDT completed e CW1 ([facility]) Tdap 01/09/2021 02:20:00 PM EDT completed e CW1 ([facility]) 01/09/2021 02:20:00 PM EDT completed e CW1 ([facility]) Tdap 01/09/2021 02:20:00 PM EDT completed e CW1 ([facility]) 01/09/2021 02:20:00 PM EDT completed e CW1 ([facility]) Tdap 01/09/2021 02:20:00 PM EDT completed e CW1 ([facility]) 01/09/2021 02:20:00 PM EDT completed e CW1 ([facility]) Tdap 01/09/2021 02:20:00 PM EDT completed e CW1 ([facility]) 01/09/2021 02:20:00 PM EDT completed e CW1 ([facility]) Tdap 01/09/2021 02:20:00 PM EDT completed e CW1 ([facility]) 01/09/2021 02:20:00 PM EDT completed e CW1 ([facility]) Tdap 01/09/2021 02:20:00 PM EDT completed e CW1 ([facility]) 01/09/2021 02:20:00 PM EDT completed e CW1 ([facility]) Tdap 01/09/2021 02:20:00 PM EDT completed e CW1 ([facility]) Medications Medication Brand Name Start Date Product Form Dose Route Admi nistrative Instructions Pharmacy Instructions Status Indications Reaction Description Data Source(s) Amphetamine aspartate 2.5 MG / Amphetami ne Sulfate 2.5 MG / Dextroamphetamine saccharate 2.5 MG / Dextroamphetamine Sulfate 2.5 MG Oral Tablet [Adderall] Adderall 10 MG Adderall 10 MG 03/06/2021 12:00:00 AM EDT 1.0 {tablet} active Adderall 10 MG eCW1 ([facility]) Amphetamine aspartate 2.5 MG / Amphetami ne Sulfate 2.5 MG / Dextroamphetamine saccharate 2.5 MG / Dextroamphetamine Sulfate 2.5 MG Oral Tablet [Adderall] Adderall 10 MG Adderall 10 MG 03/06/2021 12:00:00 AM EDT 1.0 {tablet} active Adderall 10 MG eCW1 ([facility]) Amphetamine aspartate 2.5 MG / Amphetami ne Sulfate 2.5 MG / Dextroamphetamine saccharate 2.5 MG / Dextroamphetamine Sulfate 2.5 MG Oral Tablet [Adderall] Adderall 10 MG Adderall 10 MG 03/06/2021 12:00:00 AM EDT 1.0 {tablet} active Adderall 10 MG eCW1 ([facility]) Amphetamine aspartate 2.5 MG / Amphetami ne Sulfate 2.5 MG / Dextroamphetamine saccharate 2.5 MG / Dextroamphetamine Sulfate 2.5 MG Oral Tablet [Adderall] Adderall 10 MG Adderall 10 MG 03/06/2021 12:00:00 AM EDT 1.0 {tablet} active Adderall 10 MG eCW1 ([facility]) Amphetamine aspartate 2.5 MG / Amphetami ne Sulfate 2.5 MG / Dextroamphetamine saccharate 2.5 MG / Dextroamphetamine Sulfate 2.5 MG Oral Tablet [Adderall] Adderall 10 MG Adderall 10 MG 03/06/2021 12:00:00 AM EDT 1.0 {tablet} active Adderall 10 MG eCW1 ([facility]) Amphetamine aspartate 2.5 MG / Amphetami ne Sulfate 2.5 MG / Dextroamphetamine saccharate 2.5 MG / Dextroamphetamine Sulfate 2.5 MG Oral Tablet [Adderall] Adderall 10 MG Adderall 10 MG 03/06/2021 12:00:00 AM EDT 1.0 {tablet} active Adderall 10 MG eCW1 ([facility]) Amphetamine aspartate 2.5 MG / Amphetami ne Sulfate 2.5 MG / Dextroamphetamine saccharate 2.5 MG / Dextroamphetamine Sulfate 2.5 MG Oral Tablet [Adderall] Adderall 10 MG Adderall 10 MG 03/06/2021 12:00:00 AM EDT 1.0 {tablet} active Adderall 10 MG eCW1 ([facility]) Omeprazole 20 MG Delayed Release Oral Capsule Omeprazole 20 MG 01/09/2021 12:00:00 AM EDT active Omeprazo le 20 MG eCW1 ([facility]) Omeprazole 20 MG Delayed Release Oral Capsule Omeprazole 20 MG 01/09/2021 12:00:00 AM EDT active Omeprazo le 20 MG eCW1 ([facility]) Omeprazole 20 MG Delayed Release Oral Capsule Omeprazole 20 MG 01/09/2021 12:00:00 AM EDT active Omeprazo le 20 MG eCW1 ([facility]) Amphetamine aspartate 2.5 MG / Amphetami ne Sulfate 2.5 MG / Dextroamphetamine saccharate 2.5 MG / Dextroamphetamine Sulfate 2.5 MG Oral Tablet [Adderall] Adderall 10 MG Adderall 10 MG 01/09/2021 12:00:00 AM EDT 1.0 {tablet} active Adderall 10 MG eCW1 ([facility]) Omeprazole 20 MG Delayed Release Oral Capsule Omeprazole 20 MG 01/09/2021 12:00:00 AM EDT active Omeprazo le 20 MG eCW1 ([facility]) Omeprazole 20 MG Delayed Release Oral Capsule Omeprazole 20 MG 01/09/2021 12:00:00 AM EDT active Omeprazo le 20 MG eCW1 ([facility]) Omeprazole 20 MG Delayed Release Oral Capsule Omeprazole 20 MG 01/09/2021 12:00:00 AM EDT active Omeprazo le 20 MG eCW1 ([facility]) Omeprazole 20 MG Delayed Release Oral Capsule Omeprazole 20 MG 01/09/2021 12:00:00 AM EDT active Omeprazo le 20 MG eCW1 ([facility]) Omeprazole 20 MG Delayed Release Oral Capsule Omeprazole 20 MG 01/09/2021 12:00:00 AM EDT active Omeprazo le 20 MG eCW1 ([facility]) Amphetamine aspartate 2.5 MG / Amphetami ne Sulfate 2.5 MG / Dextroamphetamine saccharate 2.5 MG / Dextroamphetamine Sulfate 2.5 MG Oral Tablet [Adderall] Adderall 10 MG Adderall 10 MG 01/09/2021 12:00:00 AM EDT 1.0 {tablet} active Adderall 10 MG eCW1 ([facility]) Amphetamine aspartate 2.5 MG / Amphetami ne Sulfate 2.5 MG / Dextroamphetamine saccharate 2.5 MG / Dextroamphetamine Sulfate 2.5 MG Oral Tablet [Adderall] Adderall 10 MG Adderall 10 MG 01/09/2021 12:00:00 AM EDT 1.0 {tablet} active Adderall 10 MG eCW1 ([facility]) Omeprazole 20 MG Delayed Release Oral Capsule Omeprazole 20 MG 01/09/2021 12:00:00 AM EDT active Omeprazo le 20 MG eCW1 ([facility]) Omeprazole 20 MG Delayed Release Oral Capsule Omeprazole 20 MG 01/09/2021 12:00:00 AM EDT active Omeprazo le 20 MG eCW1 ([facility]) Omeprazole 20 MG Delayed Release Oral Capsule Omeprazole 20 MG 01/09/2021 12:00:00 AM EDT active Omeprazo le 20 MG eCW1 ([facility]) Amphetamine aspartate 2.5 MG / Amphetami ne Sulfate 2.5 MG / Dextroamphetamine saccharate 2.5 MG / Dextroamphetamine Sulfate 2.5 MG Oral Tablet [Adderall] Adderall 10 MG Adderall 10 MG 01/09/2021 12:00:00 AM EDT 1.0 {tablet} active Adderall 10 MG eCW1 ([facility]) Omeprazole 20 MG Delayed Release Oral Capsule Omeprazole 20 MG 01/09/2021 12:00:00 AM EDT active Omeprazo le 20 MG eCW1 ([facility]) Omeprazole 20 MG Delayed Release Oral Capsule Omeprazole 20 MG 01/09/2021 12:00:00 AM EDT active Omeprazo le 20 MG eCW1 ([facility]) Amphetamine aspartate 2.5 MG / Amphetami ne Sulfate 2.5 MG / Dextroamphetamine saccharate 2.5 MG / Dextroamphetamine Sulfate 2.5 MG Oral Tablet [Adderall] Adderall 10 MG Adderall 10 MG 01/09/2021 12:00:00 AM EDT 1.0 {tablet} active Adderall 10 MG eCW1 ([facility]) Amphetamine aspartate 2.5 MG / Amphetami ne Sulfate 2.5 MG / Dextroamphetamine saccharate 2.5 MG / Dextroamphetamine Sulfate 2.5 MG Oral Tablet [Adderall] Adderall 10 MG Adderall 10 MG 01/09/2021 12:00:00 AM EDT 1.0 {tablet} active Adderall 10 MG eCW1 ([facility]) Amphetamine aspartate 2.5 MG / Amphetami ne Sulfate 2.5 MG / Dextroamphetamine saccharate 2.5 MG / Dextroamphetamine Sulfate 2.5 MG Oral Tablet [Adderall] Adderall 10 MG Adderall 10 MG 12/13/2020 12:00:00 AM EDT 1.0 {tablet} active Adderall 10 MG eCW1 ([facility]) Amphetamine aspartate 2.5 MG / Amphetami ne Sulfate 2.5 MG / Dextroamphetamine saccharate 2.5 MG / Dextroamphetamine Sulfate 2.5 MG Oral Tablet [Adderall] Adderall 10 MG Adderall 10 MG 12/13/2020 12:00:00 AM EDT 1.0 {tablet} active Adderall 10 MG eCW1 ([facility]) Amphetamine aspartate 2.5 MG / Amphetami ne Sulfate 2.5 MG / Dextroamphetamine saccharate 2.5 MG / Dextroamphetamine Sulfate 2.5 MG Oral Tablet [Adderall] Adderall 10 MG Adderall 10 MG 12/10/2020 12:00:00 AM EDT 1.0 {tablet} active Adderall 10 MG eCW1 ([facility]) Amphetamine aspartate 2.5 MG / Amphetami ne Sulfate 2.5 MG / Dextroamphetamine saccharate 2.5 MG / Dextroamphetamine Sulfate 2.5 MG Oral Tablet [Adderall] Adderall 10 MG Adderall 10 MG 12/10/2020 12:00:00 AM EDT 1.0 {tablet} active Adderall 10 MG eCW1 ([facility]) Amphetamine aspartate 2.5 MG / Amphetami ne Sulfate 2.5 MG / Dextroamphetamine saccharate 2.5 MG / Dextroamphetamine Sulfate 2.5 MG Oral Tablet [Adderall] Adderall 10 MG Adderall 10 MG 11/12/2020 12:00:00 AM EDT 1.0 {tablet} active Adderall 10 MG eCW1 ([facility]) Amphetamine aspartate 2.5 MG / Amphetami ne Sulfate 2.5 MG / Dextroamphetamine saccharate 2.5 MG / Dextroamphetamine Sulfate 2.5 MG Oral Tablet [Adderall] Adderall 10 MG Adderall 10 MG 11/12/2020 12:00:00 AM EDT 1.0 {tablet} active Adderall 10 MG eCW1 ([facility]) Amphetamine aspartate 2.5 MG / Amphetami ne Sulfate 2.5 MG / Dextroamphetamine saccharate 2.5 MG / Dextroamphetamine Sulfate 2.5 MG Oral Tablet [Adderall] Adderall 10 MG Adderall 10 MG 11/12/2020 12:00:00 AM EDT 1.0 {tablet} active Adderall 10 MG eCW1 ([facility]) Amphetamine aspartate 2.5 MG / Amphetami ne Sulfate 2.5 MG / Dextroamphetamine saccharate 2.5 MG / Dextroamphetamine Sulfate 2.5 MG Oral Tablet [Adderall] Adderall 10 MG Adderall 10 MG 11/12/2020 12:00:00 AM EDT 1.0 {tablet} active Adderall 10 MG eCW1 ([facility]) Amphetamine aspartate 2.5 MG / Amphetami ne Sulfate 2.5 MG / Dextroamphetamine saccharate 2.5 MG / Dextroamphetamine Sulfate 2.5 MG Oral Tablet [Adderall] Adderall 10 MG Adderall 10 MG 10/09/2020 12:00:00 AM EDT 1.0 {tablet} active Adderall 10 MG eCW1 ([facility]) Amphetamine aspartate 2.5 MG / Amphetami ne Sulfate 2.5 MG / Dextroamphetamine saccharate 2.5 MG / Dextroamphetamine Sulfate 2.5 MG Oral Tablet [Adderall] Adderall 10 MG Adderall 10 MG 10/09/2020 12:00:00 AM EDT 1.0 {tablet} active Adderall 10 MG eCW1 ([facility]) Amphetamine aspartate 2.5 MG / Amphetami ne Sulfate 2.5 MG / Dextroamphetamine saccharate 2.5 MG / Dextroamphetamine Sulfate 2.5 MG Oral Tablet [Adderall] Adderall 10 MG Adderall 10 MG 10/09/2020 12:00:00 AM EDT 1.0 {tablet} active Adderall 10 MG eCW1 ([facility]) Amphetamine aspartate 2.5 MG / Amphetami ne Sulfate 2.5 MG / Dextroamphetamine saccharate 2.5 MG / Dextroamphetamine Sulfate 2.5 MG Oral Tablet [Adderall] Adderall 10 MG Adderall 10 MG 10/09/2020 12:00:00 AM EDT 1.0 {tablet} active Adderall 10 MG eCW1 ([facility]) Amphetamine aspartate 2.5 MG / Amphetami ne Sulfate 2.5 MG / Dextroamphetamine saccharate 2.5 MG / Dextroamphetamine Sulfate 2.5 MG Oral Tablet [Adderall] Adderall 10 MG Adderall 10 MG 10/09/2020 12:00:00 AM EDT 1.0 {tablet} active Adderall 10 MG eCW1 ([facility]) Amphetamine aspartate 2.5 MG / Amphetami ne Sulfate 2.5 MG / Dextroamphetamine saccharate 2.5 MG / Dextroamphetamine Sulfate 2.5 MG Oral Tablet [Adderall] Adderall 10 MG Adderall 10 MG 09/19/2020 12:00:00 AM EDT 1.0 {tablet} active Adderall 10 MG eCW1 ([facility]) Amphetamine aspartate 2.5 MG / Amphetami ne Sulfate 2.5 MG / Dextroamphetamine saccharate 2.5 MG / Dextroamphetamine Sulfate 2.5 MG Oral Tablet [Adderall] Adderall 10 MG Adderall 10 MG 09/19/2020 12:00:00 AM EDT 1.0 {tablet} active Adderall 10 MG eCW1 ([facility]) Amphetamine aspartate 2.5 MG / Amphetami ne Sulfate 2.5 MG / Dextroamphetamine saccharate 2.5 MG / Dextroamphetamine Sulfate 2.5 MG Oral Tablet [Adderall] Adderall 10 MG Adderall 10 MG 09/19/2020 12:00:00 AM EDT 1.0 {tablet} active Adderall 10 MG eCW1 ([facility]) Amphetamine aspartate 2.5 MG / Amphetami ne Sulfate 2.5 MG / Dextroamphetamine saccharate 2.5 MG / Dextroamphetamine Sulfate 2.5 MG Oral Tablet [Adderall] Adderall 10 MG Adderall 10 MG 09/19/2020 12:00:00 AM EDT 1.0 {tablet} active Adderall 10 MG eCW1 ([facility]) Metoclopramide 5 MG Oral Tablet [Reglan] Reglan 5 MG Reglan 5 MG 08/27/2020 12:00:00 AM EDT 1.0 {tablet_before_meals} active Reglan 5 MG eCW1 ([facility]) Metoclopramide 5 MG Oral Tablet [Reglan] Reglan 5 MG Reglan 5 MG 08/27/2020 12:00:00 AM EDT 1.0 {tablet_before_meals} active Reglan 5 MG eCW1 ([facility]) Metoclopramide 5 MG Oral Tablet [Reglan] Reglan 5 MG Reglan 5 MG 08/27/2020 12:00:00 AM EDT 1.0 {tablet_before_meals} active Reglan 5 MG eCW1 ([facility]) Metoclopramide 5 MG Oral Tablet [Reglan] Reglan 5 MG Reglan 5 MG 08/27/2020 12:00:00 AM EDT 1.0 {tablet_before_meals} active Reglan 5 MG eCW1 ([facility]) Metoclopramide 5 MG Oral Tablet [Reglan] Reglan 5 MG Reglan 5 MG 08/27/2020 12:00:00 AM EDT 1.0 {tablet_before_meals} active Reglan 5 MG eCW1 ([facility]) Metoclopramide 5 MG Oral Tablet [Reglan] Reglan 5 MG Reglan 5 MG 08/27/2020 12:00:00 AM EDT 1.0 {tablet_before_meals} active Reglan 5 MG eCW1 ([facility]) Metoclopramide 5 MG Oral Tablet [Reglan] Reglan 5 MG Reglan 5 MG 08/27/2020 12:00:00 AM EDT 1.0 {tablet_before_meals} active Reglan 5 MG eCW1 ([facility]) Metoclopramide 5 MG Oral Tablet [Reglan] Reglan 5 MG Reglan 5 MG 08/27/2020 12:00:00 AM EDT 1.0 {tablet_before_meals} active Reglan 5 MG eCW1 ([facility]) Metoclopramide 5 MG Oral Tablet [Reglan] Reglan 5 MG Reglan 5 MG 08/27/2020 12:00:00 AM EDT 1.0 {tablet_before_meals} active Reglan 5 MG eCW1 ([facility]) Metoclopramide 5 MG Oral Tablet [Reglan] Reglan 5 MG Reglan 5 MG 08/27/2020 12:00:00 AM EDT 1.0 {tablet_before_meals} active Reglan 5 MG eCW1 ([facility]) Metoclopramide 5 MG Oral Tablet [Reglan] Reglan 5 MG Reglan 5 MG 08/27/2020 12:00:00 AM EDT 1.0 {tablet_before_meals} active Reglan 5 MG eCW1 ([facility]) Metoclopramide 5 MG Oral Tablet [Reglan] Reglan 5 MG Reglan 5 MG 08/27/2020 12:00:00 AM EDT 1.0 {tablet_before_meals} active Reglan 5 MG eCW1 ([facility]) Metoclopramide 5 MG Oral Tablet [Reglan] Reglan 5 MG Reglan 5 MG 08/27/2020 12:00:00 AM EDT 1.0 {tablet_before_meals} active Reglan 5 MG eCW1 ([facility]) Metoclopramide 5 MG Oral Tablet [Reglan] Reglan 5 MG Reglan 5 MG 08/27/2020 12:00:00 AM EDT 1.0 {tablet_before_meals} active Reglan 5 MG eCW1 ([facility]) Metoclopramide 5 MG Oral Tablet [Reglan] Reglan 5 MG Reglan 5 MG 08/27/2020 12:00:00 AM EDT 1.0 {tablet_before_meals} active Reglan 5 MG eCW1 ([facility]) Metoclopramide 5 MG Oral Tablet [Reglan] Reglan 5 MG Reglan 5 MG 08/27/2020 12:00:00 AM EDT 1.0 {tablet_before_meals} active Reglan 5 MG eCW1 ([facility]) Metoclopramide 5 MG Oral Tablet [Reglan] Reglan 5 MG Reglan 5 MG 08/27/2020 12:00:00 AM EDT 1.0 {tablet_before_meals} active Reglan 5 MG eCW1 ([facility]) Metoclopramide 5 MG Oral Tablet [Reglan] Reglan 5 MG Reglan 5 MG 08/27/2020 12:00:00 AM EDT 1.0 {tablet_before_meals} active Reglan 5 MG eCW1 ([facility]) Metoclopramide 5 MG Oral Tablet [Reglan] Reglan 5 MG Reglan 5 MG 08/27/2020 12:00:00 AM EDT 1.0 {tablet_before_meals} active Reglan 5 MG eCW1 ([facility]) Metoclopramide 5 MG Oral Tablet [Reglan] Reglan 5 MG Reglan 5 MG 08/27/2020 12:00:00 AM EDT 1.0 {tablet_before_meals} active Reglan 5 MG eCW1 ([facility]) Metoclopramide 5 MG Oral Tablet [Reglan] Reglan 5 MG Reglan 5 MG 08/27/2020 12:00:00 AM EDT 1.0 {tablet_before_meals} active Reglan 5 MG eCW1 ([facility]) Metoclopramide 5 MG Oral Tablet [Reglan] Reglan 5 MG Reglan 5 MG 08/27/2020 12:00:00 AM EDT 1.0 {tablet_before_meals} active Reglan 5 MG eCW1 ([facility]) Metoclopramide 5 MG Oral Tablet [Reglan] Reglan 5 MG Reglan 5 MG 08/27/2020 12:00:00 AM EDT 1.0 {tablet_before_meals} active Reglan 5 MG eCW1 ([facility]) Metoclopramide 5 MG Oral Tablet [Reglan] Reglan 5 MG Reglan 5 MG 08/27/2020 12:00:00 AM EDT 1.0 {tablet_before_meals} active Reglan 5 MG eCW1 ([facility]) Metoclopramide 5 MG Oral Tablet [Reglan] Reglan 5 MG Reglan 5 MG 08/27/2020 12:00:00 AM EDT 1.0 {tablet_before_meals} active Reglan 5 MG eCW1 ([facility]) Metoclopramide 5 MG Oral Tablet [Reglan] Reglan 5 MG Reglan 5 MG 08/27/2020 12:00:00 AM EDT 1.0 {tablet_before_meals} active Reglan 5 MG eCW1 ([facility]) Metoclopramide 5 MG Oral Tablet [Reglan] Reglan 5 MG Reglan 5 MG 08/27/2020 12:00:00 AM EDT 1.0 {tablet_before_meals} active Reglan 5 MG eCW1 ([facility]) Metoclopramide 5 MG Oral Tablet [Reglan] Reglan 5 MG Reglan 5 MG 08/27/2020 12:00:00 AM EDT 1.0 {tablet_before_meals} active Reglan 5 MG eCW1 ([facility]) Metoclopramide 5 MG Oral Tablet [Reglan] Reglan 5 MG Reglan 5 MG 08/27/2020 12:00:00 AM EDT 1.0 {tablet_before_meals} active Reglan 5 MG eCW1 ([facility]) Metoclopramide 5 MG Oral Tablet [Reglan] Reglan 5 MG Reglan 5 MG 08/27/2020 12:00:00 AM EDT 1.0 {tablet_before_meals} active Reglan 5 MG eCW1 ([facility]) Metoclopramide 5 MG Oral Tablet [Reglan] Reglan 5 MG Reglan 5 MG 08/27/2020 12:00:00 AM EDT 1.0 {tablet_before_meals} active Reglan 5 MG eCW1 ([facility]) Metoclopramide 5 MG Oral Tablet [Reglan] Reglan 5 MG Reglan 5 MG 08/27/2020 12:00:00 AM EDT 1.0 {tablet_before_meals} active Reglan 5 MG eCW1 ([facility]) Omeprazole 40 MG Delayed Release Oral Capsule Omeprazole 07/12/2020 12:00:00 AM EST ORAL active MEDENT ([facility]) Methylphenidate Hydrochloride 10 MG Oral Tablet [Ritalin] Ri scout 07/12/2020 12:00:00 AM EST ORAL active M EDENT ([facility]) Sucralfate 1000 MG Oral Tablet Sucralfate 07/12/2020 12:00:00 AM EST ORAL active MEDENT ([facility]) Mydayis Mydayis 06/20/2020 12:00:00 AM EST ORAL active MEDENT ([facility]) Mydayis Mydayis 05/15/2020 12:00:00 AM EST ORAL complet ed MEDENT ([facility]) Amoxicillin 875 MG / Clavulanate 125 MG Oral Tablet Am oxicillin/Clavulanate Potassium 04/18/2020 12:00:00 AM EST ORAL completed MEDENT ([facility]) Mydayis Mydayis 04/18/2020 12:00:00 AM EST ORAL complet ed MEDENT ([facility]) Mydayis Mydayis 03/04/2020 12:00:00 AM EDT ORAL complet ed MEDENT ([facility]) Dextroamphetamine Sulfate 10 MG Oral Tablet Dextroamphetamin e Sulfate 02/13/2020 12:00:00 AM EDT ORAL completed MEDENT ([facility]) Prednisone 10 MG Oral Tablet Prednisone 01/22/2020 12:00:00 AM EDT completed MEDENT ([facility]) lisdexamfetamine dimesylate 50 MG Oral Capsule [Vyvanse] Vyv anse 10/18/2019 12:00:00 AM EDT ORAL completed MEDENT ([facility]) Insurance Providers Payer name Policy type / Coverage type Policy ID Covered libertarian ID Covered libertarian's relationship to galvez Policy Galvez Plan Information [facility] [id number] SP [id number] [facility] Plan / [id number] Self [id number] RPR- Needs Payer Match [id number] Self [id number] [facility] Commercial [id number] Self [id number] [facility] Commercial [id number] Self [id number] [facility]sp AT [facility] Health Maintenance Organization (HM) 00 [id number] Self [id number] [facility] [id number] [facility] [id number] [facility] [id number] SP [id number] [facility] [id number] [facility] [id number] USP AT [facility] [id number] 18 [id number] [facility] AT [facility] Health Maintenance Organization ([facility]) 00 [id number] Self [id number] Problems, Conditions, and Diagnoses Code Display Name Description Problem Type Effective Dates Data Source(s) Z3A13 13 weeks gestation of 13 weeks gestation of Diagnosis 09/08/2020 05:09:[address] [facility] O200 Threatened Threatened Diagnosis 0 09/08/2020 05:09:[address] [facility] O209 Hemorrhage in early , unspecifi ed Hemorrhage in early , unspecified Diagnosis 09/08/2020 05:09:[address] [facility] [id number] Acquired absence of ovaries, unilateral Acquired absence of ovaries, unilateral Diagnosis 07/29/2020 08:08:00 PM [facility] Z3A01 Less than 8 weeks gestation of Less than 8 weeks gestation of Diagnosis 07/29/2020 08:08:00 PM [facility] O3481 Maternal care for other abnormalities of pelvic organs, first trimester Maternal care for other abnormalities of pelvic organs, first trimester Diagnosis 07/29/2020 08:08:00 PM [facility] R1032 Left lower quadrant pain Left lower quadrant pain Diag nosis 07/29/2020 08:08:00 PM [facility] F90.9 [id number] ADHD Problem 09/19/2020 12:00:00 AM ED T eC1 ([facility]) Z34.80 care Supervision of other normal P roblem 08/26/2020 12:00:00 AM EDT eC ([facility]) [id number] Vitamin D deficiency Vitamin D deficiency Problem 04/18/2020 12:00:00 AM EST [facility] Surgeries/Procedures Procedure Description Date Indications Data Source(s) OFFICE OUTPATIENT VISIT 25 MINUTES 03/24/2021 12:00:00 AM EDT [facility] NONSTRESS TEST 02/06/2021 12:00:00 AM EDT eCW1 ([facility]) Inj: RhoGAM 300mcg/1.5mL IM Rho D Immune Globulin Human 01/09/2021 12:00:00 AM EDT eCW1 ([facility]) TDAP VACCINE 7/> YR IM 01/09/2021 12:00:00 AM EDT eCW1 ([facility]) Results ID Date Data Source [id number] 03/17/2021 04:15:00 AM EDT [facility] Name Value Range Interpretation Code Description Data Meghna rce(s) Supporting Document(s) SARS coronavirus 2 RNA [Presence] in Res piratory specimen by ALLI with probe detection NEGATIVE [facility] This lab was ordered by [facility] a nd reported by [facility]. ID Date Data Source [id number] 03/02/2021 12:15:00 PM EDT [facility] Name Value Range Interpretation Code Description Data Meghna rce(s) Supporting Document(s) SARS-CoV-2 RNA Resp Ql ALLI+probe NOT DETECTED [facility] This lab was ordered by [facility] dubose and reported by [facility] Balderas. ID Date Data Source GROUP B STREP CULTURE 02/20/2021 12:00:00 AM EDT eCW1 (Replaced by [facility]) Name Value Range Interpretation Code Description Data Meghna rce(s) Supporting Document(s) GROUP B STREP CULTURE eCW1 ([facility]) ID Date Data Source RHOGAM 12/19/2020 12:00:00 AM EDT eCW1 ([facility]) Name Value Range Interpretation Code Description Data Meghna rce(s) Supporting Document(s) TRANSFUSED PRODUCT: RHOGAM CO UNT: 1 RHOGAM eCW1 ([facility]) ID Date Data Source Glucose Challenge Test 1 Hour 12/19/2020 12:00:00 AM EDT eCW 1 ([facility]) Name Value Range Interpretation Code Description Data Meghna rce(s) Supporting Document(s) 87 LESS THAN 140 GLUCOSE CHALLENGE TEST 1 HOUR eCW1 ([facility]) ID Date Data Source CBC - Complete Blood Count 12/19/2020 12:00:00 AM EDT eCW1 ( [facility]) Name Value Range Interpretation Code Description Data Meghna rce(s) Supporting Document(s) 7.1 4.0-10.0 WHITE BLOOD COUNT eCW1 ([facility]) 11.7 12.0-15.5 HEMOGLOBIN eCW1 (On license of [facility]) 3.67 4.00-5.40 RED BLOOD COUNT eCW1 ([facility]) 31.9 27.0-33.0 MEAN CORPUSCULAR HEMOGLOB IN eCW1 ([facility]) 97.3 80.0-96.0 MEAN CORPUSCULAR VOLUME e CW1 ([facility]) 35.7 36.0-47.0 HEMATOCRIT eCW1 (On license of [facility]) 12.3 11.5-14.5 RED CELL DISTRIBUTION WID TH eCW1 ([facility]) 32.8 32.0-36.5 MEAN CORPUSCULAR HGB CONC eCW1 ([facility]) 132 150-450 PLATELET COUNT, AUTOMATED eCW1 ([facility]) ID Date Data Source Type and Screen (D Rh Antibody Screen) 12/19/2020 12:00:00 A M EDT eCW1 ([facility]) Name Value Range Interpretation Code Description Data Meghna rce(s) Supporting Document(s) NEGATIVE AB SCREEN (INDIRECT COOMB S)VIS eCW1 ([facility]) A NEGATIVE BLOOD TYPE eCW1 ([facility]) ID Date Data Source [id number] 11/14/2020 07:59:00 AM [facility] Name Value Range Interpretation Code Description Data Meghna rce(s) Supporting Document(s) SARS-CoV-2 (COVID-19) RNA [Presence] in Respiratory specimen by ALLI with probe detection Not Detected [facility] This lab was ordered by [facility] and reported by [facility]. ID Date Data Source [id number] 11/06/2020 10:59:00 AM EDT [facility] Name Value Range Interpretation Code Description Data Meghna rce(s) Supporting Document(s) SARS-CoV-2 RNA Resp Ql ALLI+probe NOT DETECTED [facility] This lab was ordered by [facility] and re ported by [facility] Balderas. ID Date Data Source [id number] 10/08/2020 05:41:00 AM EDT [facility] Name Value Range Interpretation Code Description Data Meghna rce(s) Supporting Document(s) SARS-CoV-2 (COVID-19) RNA [Presence] in Respiratory specimen by ALLI with probe detection Not Detected [facility] This lab was ordered by [facility] and reported by [facility]. ID Date Data Source [id number] 09/09/2020 09:41:00 AM EDT [facility] [address] [place] [address] PHONE: [phone] FAX: [phone] Name .................. : ANA QUEZADA Acct Number.................. : [id number] ROOM. ................. : TR04 MR Number ................... : [id number] Stay type ............. : E/R Discharge Date......... ... : 09/08/20 Admit Date ......... : 09/08/20 Admit Phys .................... : EVARISTO Aranda Date of ....... : 1990 Family Phys ................... : NO PCP Phone .................. : [phone] Age ................................ : 30 Film# .................. .:[id number] Sex ................................. : F Unsigned transcriptions are preliminary reports and do not represent a medical or legal document OB 1ST TRI UP TO 14 WEEKS 74148 COMPLETE:09/08/20 18:20 GSP 8499 Reason(s): bleeding OB ULTRASOUND: FIRST TRIMESTER [...] rce(s) Supporting Document(s) ID Date Data Source [id number] 09/08/2020 05:09:[address] [facility] [address] [facility] Emergency Department [address] [place] [address] Phone #: ext- [phone] 09/08/2020 17:02 Patient: DAMIEN PEREZ Sex: F : 1990 Age: 30yWEIGHT:75.2 kg (S) HEIGHT:69 inches (S) BMI:24.5ALLERGIES: No Known Drug Allergy, Pharmacy of choice [facility] COMPLAINT: vag bleedingDIAGNOSIS: Threatened abortionLAB ORDERSOrder Description Priority Entered Acknowledged InitialedType Rh ST AT 17:18 09/08/2020 17:19 Evaristo Ybarra Jack ; Monica ColeCBC w Diff STAT 17:18 09/08/2020 17:19 Evaristo Ybarra Jack ; Monica ColeBMP STAT 17:18 09/08/2020 17:19 Tate, Jhonathan Jung ; Monica Sanabria.Rhogam STAT 17:19 09/08/2020 Ack'd: 17:19 17:23 Tate,(D-Immune Jhonathan Jung ; Monica Ybarra.Aristeo.Globulin) R.N.Urinalysis (Clean STAT 17:09/08/2020 Ack'd: 17:20 18:50 Janis,Catch) Jhonathan Jung ; Monica Ybarra Nasrin R.N. R.N.DIAGNOSTIC STUDY ORDERSOrder Description Priority Entered Acknowledged InitialedUS OB 1ST TRI UP STAT 17:18 09/08/2020 Ack'd: 17:19 17:33 Tate,TO 14 WEEKS Jhonathan Jung ; Monica Ybarra R.N.(Oxygen?(No)) R.N.(IV?(No)) Reason for Study: bleedingMEDICATION/IV/DRIP/FLU ID ORDERSOrder Description Priority Entered Acknowledged InitialedAcetaminophen PO 17:18 09/08/2020 Ack'd: 17:19 17:23 Tate,1000 mg (NOW x1) Jhonathan Jung ; Monica Ybarra.N. R.N.GENERAL ORDERS [address] [facility] Emergency Department [address] [place] [address] Phone #: ext- [phone] 09/08/2020 17:02 Patient: DAMIEN PEREZ Sex: F : 1990 Age: 30yOrder Description Priority Entered Acknowledged Initialed[Electronically signed by Monica Ybarra R.N. (:09/08/2020)][Electronically signed by Jhonathan Jung (20:01 09/08/2020)][Electronically locked by Monica Ybarra R.N. (09/08/2020)] Name Value Range Interpretation Code Description Data Meghna rce(s) Supporting Document(s) ID Date Data Source [id number] 09/08/2020 05:09:[address] [facility] [address] [facility] Emergency Department [address] [place] [address] Phone #: ext- [phone] 09/08/2020 17:02 Patient: DAMIEN PEREZ Sex: F : 1990 Age: 30yWeight: 75.2 kgHeight/Length: 69 in.BMI: 24.5ALLERGIES: No Known Drug Allergy, [facility] Medications are listed below:THE FOLLOWING MEDICATIONS NEED TO BE RECONCILED: prenatals Zofran Oral, prnThe source(s) of the original Home Medication information:patientThe following Medications were given to the patient in the Emergency Department:Acetaminophen [PO] PO 1000 mg, administered: 17:23 09/08/2020The following Medications were prescribed to the patient:None. Name Value Range Interpretation Code Description Data Meghna e(s) Supporting Document(s) ID Date Data Source [id number] 09/08/2020 05:09:[address] [facility] [address] [facility] Emergency Department [address] [place] [address] Phone #: ext- [phone] 09/08/2020 17:02 Patient: DAMIEN PEREZ Sex: F : 1990 Age: 30yWeight: 75.2 kgHeight/Length: 69 inBMI: 24.5ALLERGIES: No Known Drug Allergy, [facility]acy [facility] choice [facility] Date/Time Medication Administered Medication OrderedGiven ACETAMINOPHEN [PO] Acetaminophen PO 1000 mg17:23 09/08/2020 Dose: 1000 mg Tablets PO (NOW x1)Monica Ybarra R.N. Name Value Range Interpretation Code Description Data Meghna rce(s) Supporting Document(s) ID Date Data Source [id number] 09/08/2020 05:09:[address] [facility] [address] [facility] Emergency Department [address] [place] [address] Phone #: ext- [phone] 09/08/2020 17:02 Patient: [...] were supposed to. No [address] [facility] Emergency Department [address] [place] [address] Phone #: ext- [phone] 09/08/2020 17:02 Patient: DAMIEN PEREZ Sex: F [...] any new findings that mayaffect your care.Call [phone] if you have: Severe pain and very heavy bleeding Severe lightheadedness, passing out, or fainting Rapid heart rate Trouble breathing Confusion or trouble waking upWhen to seek medical adviceCall your healthcare provider right away if any of these occur: Vaginal bleeding or pain that lasts for more than 3 days [address] [facility] Emergency Department [address] [place] [address] Phone #: ext- [phone] 09/08/2020 17:02 Patient: [...] container and bring it to your provider. [employer] [address] [place] [address]. All rights reserved. This information is not intended as asubstitute for professional medical care. Always follow your healthcare professional's instructions. You have been given the following additional information: Possible Miscarriage (Threatened ) Do not work for two days.(Electronically signed by Jhonathan Jung 09/08/2020 20:01) Name Value Range Interpretation Code Description Data Meghna rce(s) Supporting Document(s) ID Date Data Source [id number] 09/08/2020 05:09:[address] [facility] 1 Clinical Report - Nurses [facility] Emergency Department [address] [place] [address] Phone #: ext- [phone] 09/08/2020 17:02 Patient: DAMIEN PEREZ Sex: F : 1990 Age: 30yTRIAGEArrived by private vehicle. Historian: patient. Accompanied by family.Chief Complaint: ABDOMINAL PAIN and CRAMPS and SPOTTING.Onset. (1300 today). ( patient is 13 weeks gestation. started with intermittent heavy vaginal bleeding [id number], with mild lower abd cramping. states she had used about 3 pads today.). No vomiting, fever orswelling.Treatment LIBRARY PAGE:None. --17:11 09/08/20 Nasrin Bruce R.N.Acuity: LEVEL 3.Alert. [...] R.N.MedicationsZofran Oral, as needed. --17:13 09/08/20 Nasrin Bruce R.N. prenatals. --17:13 09/08/20 Nasrin Bruce R.N.AllergiesNo Known Drug Allergy.Pharmacy of choice [facility]. --17:13 09/08/20 Nasrin Bruce R.N.Medication/allergy information source: the patient. --17:11 09/08/20 Nasrin Bruce R.N.HistoryPAST MEDICAL HX: Immunizations: up-to-date. Currently : EDC: Mar 18. confirmedwith sonogram. Has had care by warehouse foreman. P 3. She has had care. Risks and / orproblems associated with current . --17:11 09/08/20 Nasrin Bruce R.N.PAST MEDICAL HX: ( RH Negative). 2 Clinical Report - Nurses [facility] Emergency Department [address] [place] [address] Phone #: ext- [phone] 09/08/2020 17:02 [id number] Sex: F : 1990 Age: 30y SOCIAL [...] Bruce R.N. 3 Clinical Report - Nurses [facility] Emergency Department [address] [place] [address] Phone #: ext- [phone] 09/08/2020 17:02 Patient: DAMIEN PEREZ Sex: F : 1990 Age: 30y 17:23 09/08/2020 Acetaminophen PO Tablets 1000 mg given. Allergies verified and confirmed 5 rights. Information reviewed with patient including reason for taking this medication, signs of allergic reaction and precautions. Verbalizes understanding. --17:23 09/08/20 Monica Ybarra R.N. [facility] with mask and radiology manager. --17:34 09/08/20 Monica Ybarra R.N. ( Rhogham injection given in left buttocks). --19:13 09/08/20 Monica Ybarra R.N.DISPOSITION / DISCHARGE Condition at departure: improved and stable. No learning barriers present. Discharge instructions provided and reviewed with the patient. Reviewed warnings. Reviewed referral to an warehouse foreman for followup. Work note given. Patient verbalized understanding. Written instructions provided in Canadian. The patient was discharged by the physician. [...] rce(s) Supporting Document(s) ID Date Data Source [id number] 09/08/2020 05:09:[address] [facility] 1 Clinical Report - Physicians/Mid Levels [facility] Emergency Department [address] [place] [address] Phone #: ext- [phone] 09/08/2020 17:02 Patient: DAMIEN PEREZ Sex: F [...] as needed. Allergies: 2 Clinical Report - Physicians/Mid Levels [facility] Emergency Department [address] [place] [address] Phone #: ext- [phone] 09/08/2020 17:02 [id number] Sex: F : 1990 Age: 30y No Known Drug Allergy. Pharmacy of choice [facility].SOCIAL HISTORYNever smoker.FAMILY HISTORYNo significant family medical history.ADDITIONAL [...] radiologist.Laboratory Tests: Urinalysis: (CLARA: 09/08/2020 18:35) ( IngRcvd 09/08/2020 19:34) Final results Test Result Flag [...] Negat 3 Clinical Report - Physicians/Mid Levels [facility] Emergency Department [address] [place] [address] Phone #: ext- [phone] 09/08/2020 17:02 Patient: DAMIEN PEREZ Sex: F : 1990 Age: 30y [place] EST NEG (NORMAL: Negat UROBILINOGEN NOR (less than 1.0 MICROSCOPIC See Below RBC 1 - 3 (NORMAL: NONE EPITHELIAL FEW (NORMAL: NONEType Rh: (CLARA: 09/08/2020 17:24) ( MsgRcvd 09/08/2020 18:48) Final results Test Result Flag Units (Reference) ABO GROUP A RH TYPE NEGATIVE { ABO/RH REENTER A NEGATIVECBC w Diff: (CLARA: 09/08/2020 17:24) ( MsgRcvd 09/08/2020 18:29) Final results Test Result Flag [...] 10.2) 4 Clinical Report - Physicians/Mid Levels [facility] Emergency Department [address] [place] [address] Phone #: ext- [phone] 09/08/2020 17:02 Patient: DAMIEN PEREZ Sex: F [...] patient. 5 Clinical Report - Physicians/Mid Levels [facility] Emergency Department [address] [place] [address] Phone #: ext- [phone] 09/08/2020 17:02 Patient: DAMIEN PEREZ Sex: F : 1990 Age: 30y(Electronically signed by Jhonathan Jung 09/08/2020 20:01) Name Value Range Interpretation Code Description Data Meghna rce(s) Supporting Document(s) ID Date Data Source [id number] 09/08/2020 07:31:[address] [facility] Name Value Range Interpretation Code Description Data [facility] rce(s) Supporting Document(s) URINALYSIS [facility]yer URINALYSIS SOURCE Clean Catch [facility] COLOR yellow NORMAL: Yellow [facility] CLARITY clear NORMAL: Clear [facility] sp[facility] Specific gravity of Urine by Test strip 1.010 1.001 - 1.030 [facility] 6 5 - [facility] Gl[facility] [Mass/volume] in Urine by Test strip NORM NORMAL: Negat [facility] Bilirubin.total [Presence] in Urine by Test strip NEG NORMAL: Negative [facility] Ketones [Presence] in Urine by Test strip NEG NORMAL: Negative [facility] Protein [Mass/volume] in Urine by Test strip NEG NORMAL: Negat [facility] Nitrite [Presence] in Urine by Test strip NEG NORMAL: Negative [facility] BLOOD 250 NORMAL: Negative A [facility] Leukocyte esterase [Presence] in Urine by Test strip NEG JULIA L: Negative [facility] Urobilinogen [Mass/volume] in Urine by Test strip NOR less laquita n 1.0 mg/dL [facility] MICROSCOPIC See Below [facility] Erythrocytes [#/volume] in Urine by Test strip 1 - 3 NORMAL: NON E SEEN [facility] EPITHELIAL FEW NORMAL: NONE SEEN [facility] ID Date Data Source [id number] 09/08/2020 06:48:[address] [facility] Name Value Range Interpretation Code Description Data Meghna rce(s) Supporting Document(s) ABO group [Type] in Blood A [facility] Rh [Type] in Blood NEGATIVE [facility] { ABO/RH REENTER A NEGATIVE ID Date Data Source [id number] 09/08/2020 06:28:[address] [facility] Name Value Range Interpretation Code Description Data Meghna rce(s) Supporting Document(s) CBC W/AUTOMATED DIFF [facility] COMPLETE BLOOD COUNT Leukocytes [#/volume] in Blood by Automated count 3.5 10^3/uL 4.2 - [address] [facility] Erythrocytes [#/volume] in Blood by Automated count 3.77 10^6/uL 4. 20 - 5.[address] [facility] Hemoglobin [Mass/volume] in Blood 12.2 g/dL 12.0 - 16.0 [facility] Hematocrit [Volume Fraction] of Blood by Automated count 34.7 % 3 7.0 - 47.[address] [facility] Erythrocyte mean corpuscular volume [Entitic volume] by Auto mated count 92.0 fL 81.0 - 101 [facility] Erythrocyte mean corpuscular hemoglobin [Entitic mass] by Automated count 32.4 pg 27.0 - 34.0 [facility] Erythrocyte mean corpuscular hemoglobin concentration [Mass/volume] by Automated count 35.2 g/dL 31.0 - 36.0 [facility] Erythrocyte distribution width [Ratio] by Automated count 11.9 % 11.5 - 14.5 [facility] Platelets [#/volume] in Blood by Automated count 183 10^3/uL 150 - [address] [facility] Platelet mean volume [Entitic volume] in Blood by Automated count 10.9 fL 7.4 - 10.[address] [facility] Neutrophils/100 leukocytes in Blood by Automated count 48.5 % 37. 0 - 80.0 [facility] Lymphocytes/100 leukocytes in Blood by Manual count 44.9 % 25.0 - 40.[address] [facility] Monocytes/100 leukocytes in Blood by Automated count 5.1 % 3.0 - 8.0 [facility] Eosinophils/100 leukocytes in Blood by Automated count 0.6 % 0.0 - 7.0 [facility] Basophils/100 leukocytes in Blood by Automated count 0.6 % 0.0 - 2.5 [facility] %IG 0.3 % 0.0 - 0.0 [facility] %NRBC 0.0 % 0.0 - 0.0 [facility] al Neutrophils [#/volume] in Blood by Automated count 1.71 10^3/uL 2.00 - 6.[address] [facility] Lymphocytes [#/volume] in Blood by Automated count 1.58 10^3/uL 0.60 - 3.40 [facility] Monocytes [#/volume] in Blood by Automated count 0.18 10^3/uL 0.00 - 0.90 [facility] Eosinophils [#/volume] in Blood by Automated count 0.02 10^3/uL 0.00 - 0.70 [facility] Basophils [#/volume] in Blood by Automated count 0.02 10^3/uL 0.00 - 0.20 [facility] #IG 0.01 10^3/uL 0.00 - 0.10 [facility] ospital #NRBC 0.00 10^3/uL 0.00 - 0.00 [facility] ospital MANUAL DIFF NOT INDICATED [facility] RBC MORPH NOT INDICATED [facility] spital ID Date Data Source [id number] 09/08/2020 06:27:[address] [facility] [place] Name Value Range Interpretation Code Description Data Meghna rce(s) Supporting Document(s) BASIC METABOLIC PANEL [facility] BASIC METABOLIC PANEL Sodium [Moles/volume] in Serum or Plasma 135 mEq/L 134 - 153 [facility] Potassium [Moles/volume] in Serum or Plasma 4.0 mEq/L 3.6 - 5.0 [facility] Chloride [Moles/volume] in Serum or Plasma 103 mEq/L 98 - 107 [facility] Carbon dioxide, total [Moles/volume] in Serum or Plasma 23 MEQ/L 22 - 30 [facility] Glucose [Mass/volume] in Serum or Plasma 83 MG/DL 70 - 99 [facility] BUN 8 MG/DL 7 - 21 [facility] Creatinine [Mass/volume] in Serum or Plasma 0.5 MG/DL 0.7 - 1.[address] [facility] BUN/CREAT 16 8 - 27 [facility] Calcium [Mass/volume] in Serum or Plasma 9.6 MG/DL 8.4 - 10.2 [facility] Anion gap 3 in Serum or Plasma 9.0 mmol/L 8.0 - 16.0 [facility]GE 30 [facility] AMER GFR >60 mL/min [facility] NON-AA GFR >60 mL/min [facility] Male GFR Inter prentation 20-49 yrs [...] >32 mL/min Normal ID Date Data Source [id number] 08/06/2020 08:30:00 AM EST [facility] Name Value Range Interpretation Code Description Data Meghna rce(s) Supporting Document(s) SARS coronavirus 2 RNA Not Detected [facility] [place] This lab was ordered by [facility] and reported by [facility]. ID Date Data Source [id number] 07/29/2020 08:08:[address] [facility] [address] [facility] Emergency Department [address] [place] [address] Phone #: ext- [phone] 07/29/2020 20:03 [id number] Sex: F : 1990 Age: 30yWEIGHT:84.8 kg (S) HEIGHT:69 inches (S) BMI:27.6ALLERGIES: No Known Drug Allergy, Pharmacy of choice [facility] COMPLAINT: abdominal painDIAGNOSIS: Patient currently , Cyst of ovaryLAB ORDERSOrder Description Priority Entered Acknowledged InitialedCBC w Diff STAT 20:22 07/29/2020 20:22 Ismael Allen Riccardo Katelyn M.D.;CMP STAT 20:22 07/29/2020 20:22 Ismael Allen Riccardo Katelyn M.D.;Lipase STAT 20:22 07/29/2020 20:22 Ismael Allen Riccardo Katelyn M.D.;Urinalysis (Clean STAT 20:22 07/29/2020 20:22 AlejandroCatch) Reynaldo Guevara M.D.;Type Rh STAT 20:22 07/29/2020 20:22 Ismael Allen Riccardo Katelyn M.D.;Beta-HCG, Quant STAT 20:22 07/29/2020 20:22 AlejandroSerum Reynaldo Guevara M.D.;Lactic Acid STAT 20:22 07/29/2020 20:22 Ismael Allen Riccardo Katelyn M.D.;DIAGNOSTIC STUDY ORDERSOrder Description Priority Entered Acknowledged InitialedUS OB 1ST TRI W STAT 21:45 07/29/2020 Ack'd: 21:46 22:43 Alejandro,TV IF NEEDED Reynaldo Guevara Katelyn Katelyn(Oxygen?(No)) Maverick;(IV?(Yes)) Reason for Study: left pelvic pain, , LMP: 06-09-20, 6-7 weeksMEDICATION/IV/DRIP/FLUID ORDERS [address] [facility] [place] Emergency Department [address] [place] [address] Phone #: ext- [phone] 07/29/2020 20:03 Patient: [...] rce(s) Supporting Document(s) ID Date Data Source [id number] 07/29/2020 08:08:00 PM [facility] [address] [facility] Emergency Department [address] [place] [address] Phone #: ext- [phone] 07/29/2020 20:03 Patient: DAMIEN PEREZ Sex: F : 1990 Age: 30yWeight: 84.8 kgHeight/Length: 69 in.BMI: 27.6ALLERGIES: No Known Drug Allergy, Pharmacy of choice [facility] patient's Home Medications are listed below:CONTINUE TAKING [...] rce(s) Supporting Document(s) ID Date Data Source [id number] 07/29/2020 08:08:00 PM [facility] [address] [facility] [place] Emergency Department [address] [place] [address] Phone #: ext- [phone] 07/29/2020 20:03 Patient: DAMIEN PEREZ Sex: F : 1990 Age: 30yWeight: 84.8 kgHeight/Length: 69 inBMI: 27.6ALLERGIES: No Known Drug Allergy, Pharmacy of choice [facility] Date/Time Medication Administered Medication OrderedStart NS [IV] NS IV : Bolus 500 mL, then 35756:[id number] 07/29/2020 Dose: IV Fluids mL/Suzanna Phillips, Bolus: [...] rce(s) Supporting Document(s) ID Date Data Source [id number] 07/29/2020 08:08:[address] [facility] [address] [facility] Emergency Department [address] [place] [address] Phone #: ext- [phone] 07/29/2020 20:03 Patient: DAMIEN PEREZ Sex: F : 1990 Age: 30yFirst trimester . (7 weeks).Single simple left ovarian cyst.INSTRUCTIONSDrink plenty of fluids. Avoid alcohol and NSAIDS. NSAIDS include aspirin, ibuprofen (Advil) and naproxen(Aleve). Avoid fatty, fried/greasy, lactose-containing (such as milk, cheese and ice cream), salty and spicyfoods. No alcohol. Do not smoke.Warnings: Further evaluation is necessary (WINDOW SYSTEMS ADMINISTRATOR). It is very important to follow up [...] department as needed. Follow up with an warehouse foreman tomorrow even if well.Call for an appointment. Reason for referral: evaluation and treatment. Summary of care provided topatient via paper.Understa nding of the discharge instructions verbalized by patient. Expected course of illness, dischargeinstructions, activity level, diet, follow-up appointment and risks and benefits of treatment reviewed withpatient and understanding verbalized. Agrees to plan of care.Follow-up with: [facility], , , [address] [place] [address], [id number] Follow up tomorrow even if well. Call for an appointment. Reason for referral: evaluation and treatment.Summary of care provided to patient via paper. ADDITIONAL INFORMATION [address] [facility] Emergency Department [address] [place] [address] Phone #: ext- [phone] 07/29/2020 20:03 Patient: DAMIEN PEREZ Sex: F [...] your healthcare provider may recom mend using [id number] pain medicine. If needed, your provide may [...] or grows in size. [address] [facility] Emergency Department [address] [place] [address] Phone #: ext- [phone] 07/29/2020 20:03 [facility]: [id number] Sex: F : 1990 Age: 30yFollow-up careFollow [...] Weakness, dizziness, or fainting Abnormal vaginal bleeding [phone] [place] [address], [place] [address]. All rights reserved. This information is not intended as asubstitute for professional medical care. Always follow your healthcare professional's instructions.PregnancyYour exam today shows that you are . symptoms [address] [facility] [place] Emergency Department [address] [place] [address] Phone #: ext- [phone] 07/29/2020 20:03 Patient: [...] cause permanent brain damage. [address] [facility] [place] Emergency Department [address] [place] [address] Phone #: ext- [phone] 07/29/2020 20:03 Patient: [...] You can seeyour family provider, a specialist (warehouse foreman), a agricultural adviser, or a primary care clinic.When to seek medical adviceCall your healthcare provider right away if any of these occur: Vaginal bleeding Pain in your belly (abdomen) or back that is moderate or severe Lots of vomiting, or you can't keep any fluids down for 6 hours Burning feeling when you urinate Headache, dizziness, or rapid weight gain Fever Vision changes or blurred vision [phone]. [address] [place] [address], [place] [address]. All rights reserved. This information is not intended as asubstitute for professional medical care. Always follow your healthcare professional's instructions. [address] [facility] Emergency Department [address] [place] [address] Phone #: ext- [phone] 07/29/2020 20:03 Patient: [...] baby is born healthy: [address] [facility] [place] Emergency Department [address] [place] [address] Phone #: ext- [phone] 07/29/2020 20:03 Patient: DAMIEN PEREZ Sex: F [...] You can seeyour family provider, a specialist (warehouse foreman), a agricultural adviser, or a primary care clinic.When to seek medical adviceCall your healthcare provider right away if any of these occur: Vaginal bleeding Pain in your belly (abdomen) or back that is moderate or severe Lots of vomiting, or you can't keep any fluids down for 6 [address] [facility] [place] Emergency Department [address] [place] [address] Phone #: ext- [phone] 07/29/2020 20:03 Patient: DAMIEN PEREZ Sex: F : 1990 Age: 30y Burning feeling when you urinate Headache, dizziness, or rapid weight gain Fever Vision changes or blurred vision [phone]. [address] [place] [address], [place] [address]. All rights reserved. This information is not intended as asubstitute for professional medical care. Always follow your healthcare professional's instructions. You have been given the following additional information: Ovarian Cyst , New Dx , New Dx(Electronically signed by Reynaldo Guevara M.D. 07/30/2020 00:09) Name Value Range Interpretation Code Description Data Meghna rce(s) Supporting Document(s) ID Date Data Source [id number] 07/29/2020 08:08:[address] [facility] 1 Clinical Report - Nurses [facility] Emergency Department [address] [place] [address] Phone #: ext- [phone] 07/29/2020 20:03 Patient: [...] isaround 6 weeks.). She has had constipation.Treatment LIBRARY PAGE:(glycerin suppository, miralax, mag citrate, colace, enema).SEPSIS SCREEN: [...] saturation: 100%. Temp: 98.7 F. Pain levelnow: 8/10. --20:12 07/29/20 Jeane Chavez R.N.Weight: 84.8 kg stated. Height/Length: 69 inches Per Patient. BMI: 27.6. --20:10 07/29/20 Jeane Chavez R.N.MedicationsMydayis Oral (Capsule Extended Release 24 Hour 37.5 mg) (has not taken in 2 weeks). --20:11 07/29/20Jeane Chavez R.N. Zofran Oral, as needed. --20:11 07/29/20 Jeane Chavez R.N.AllergiesNo Known Drug Allergy. --20:11 07/29/20 Jeane Chavez R.N.[facility]armacy of [facility]. --20:18 07/29/20 Shanika Sexton R.N.PROBLEMS:Irritable bowel syndrome (disorder). --20:12 07/29/20 Jeane Chavez R.N. 2 Clinical Report - Nurses [facility] Emergency Department [address] [place] [address] Phone #: ext- [phone] 07/29/2020 20:03 Patient: [...] R.N. Interventions To treatment room. --20:12 07/29/20 Jeane Chavez R.N.PHYSICAL ASSESSMENTAmbulatory to room.GENERAL / NEURO / [...] Chavez R.N. 3 Clinical Report - Nurses [facility] [place] Emergency Department [address] [place] [address] Phone #: ext- [phone] 07/29/2020 20:03 Patient: DAMIEN PEREZ Sex: F : 1990 Age: 30y20:05 07/29/2020 Site #1 started via IV in the right antecubital space with an 20g angiocath, with aseptictechnique and good blood return; one attempt. Blood drawn: rainbow set. Saline lock flushed with saline.--20:16 07/29/20 Michael Allen provided for the rectal exam by the physician. ( Dr. Guevara and this nurse). --20:07/29/20Ariel Allen0:07/29/2020 Started bag #1 1000 mL IV Fluids NS; bolus of 500 mL over 30 minute(s) via site #1 viaIV pump. Allergies verified and confirmed 5 rights. IV patency established. IV site checked: no pain,redness, or swelling. IV flushed thoroughly pre- and post- medication administration. Information reviewedwith patient including reason for taking this medication, signs of allergic reaction and precautions.Verbalizes understanding. --20:07/29/20 Ariel Allen0:07/29/2020 Reglan (Metoclopramide HCl) IVP 10 mg given over 3 minute(s) via site #1. Allergiesverified and confirmed 5 rights. IV patency established. IV site checked: no pain, redness, or swelling. IVflushed thoroughly pre- and post-medication administration. IVP given by RN. Information reviewed withpatient including reason for taking this medication, signs of allergic reaction and precautions. Verbalizesunderstanding. --20:07/29/20 Ariel Allen1:07/29/2020 IV Fluids NS via IV site #1 Rate Changed: bag #1 decreased to 150 mL/hr. Confirmed 5Rights. IV patency established. IV site checked: no pain, redness, or swelling. IV flushed thoroughly.--:07/29/20 Luis Sexton RNReassurance given.Rounding: Pain: assessed pain level. Position: states comfortable. Personal care / toileting: denies toiletingneeds. Proximity of possessions / care items: call light within easy reach. Plug ins: assured IV pumpplugged in; checked status of equipment in use; located all cords, tubes, and lines to prevent fall hazard.--21:10 07/29/20 AlejandroFabrice telyn21:54 07/29/2020 [facility] g --21:54 07/29/20 Seymour AllennReassurance given.Rounding: Pain: assessed pain level. Position: states comfortable. Personal care / toileting: denies toiletingneeds. Proximity of possessions / care items: call light within easy reach. Plug ins: assured IV pumpplugged in; checked status of equipment in use; located all cords, tubes, and lines to prevent fall hazard.--21:59 07/29/20 Seymour Allenn22:10 07/29/2020 [facility] IV Discontinued: completed. Total amount infused: 100 mL. IV patencyestablished. IV site checked: no pain, redness, or swelling. IV flushed thoroughly. --22:43 07/29/20 Suzanna Allen 4 Clinical Report - Nurses [facility] Emergency Department [address] [place] [address] Phone #: ext- [phone] 07/29/2020 20:03 Patient: DAMIEN PEREZ Sex: F : 1990 Age: 30y Patient transported to sonogram by wheelchair with mask and tech. --22:43 07/29/20 Suzanna Allen Patient returned from sonogram by wheelchair with mask and tech. --23:04 07/29/20 Suzanna Allen 21:00 07/29/20. BP: 103/67. MAP: 79. HR: 63. RR: 15. O2 saturation: 100%. Pain level now: 09/07. --23:42 07/29/20 Suzanna Allen 22:00 07/29/20. BP: [...] 60. RR: 16. O2 saturation: 99%. --23:44 07/29/20 Suzanna Allen late entry - 23:07/29/20. Reassurance given. Rounding: Pain: assessed pain level. [...] Patient verbalized understanding. Written instructions provided in Canadian. The patient was discharged by the physician. She was discharged home and unaccompanied at time of discharge. She left ambulatory and via private vehicle. Patient driving. --00:05 07/30/20 Suzanna Allen 5 Clinical Report - Nurses [facility] Emergency Department [address] [place] [address] Phone #: ext- [phone] 07/29/2020 20:03 Patient: DAMIEN PEREZ Sex: F : 1990 Age: 30y 00:04 07/30/20. BP: 104/63. HR: 57. RR: 15. O2 saturation: 99%. Temp: 98.1 F. Pain level now 210. --00:05 07/30/20 Suzanna Allen Departure time: 00:07 07/30/2020. --00:07 07/30/20 Suzanna Allen.Locked/Released at 07/30/2020 00:07 by Suzanna Allen Name Value Range Interpretation Code Description Data Meghna rce(s) Supporting Document(s) ID Date Data Source [id number] 07/29/2020 08:08:[address] [facility] 1 Clinical Report - Physicians/Mid Levels [facility] Emergency Department [address] [place] [address] Phone #: ext [phone] 07/29/2020 20:03 Patient: DAMIEN PEREZ Sex: F [...] 06-09-20, EDC: 03-16-21, 6 5/7 weeks, no WINDOW SYSTEMS ADMINISTRATOR visit yet; pt has only lt ovary [...] (Right) 2 Clinical Report - Physicians/Mid Levels [facility] Emergency Department [address] [place] [address] Phone #: ext- [phone] 07/29/2020 20:03 ---- Patient: DAMIEN PEREZ Sex: F : 1990 Age: 30y Salpingectomy. (Right). Medications: Zofran Oral, as needed. Mydayis Oral (Capsule Extended Release 24 Hour 37.5 mg) (has not taken in 2 weeks). Allergies: No Known Drug Allergy. [facility]SOCIAL HISTORYNever smoker. No alcohol use or drug use.ADDITIONAL NOTESThe nursing notes have been reviewed with agreement regarding the chief complaint, HPI, ROS, PMH andpatient medications and allergies.PHYSICAL EXAMVital Signs: 07/29/2020 20:03 BP: 144/91. MAP: 108. HR: 98. RR: 16. O2 saturation: 100%. Temp: 98.7F. Pain level now: 8/10. Have been reviewed. Oxygen saturation normal.Appearance: Alert. [...] NEEDED 3 Clinical Report - Physicians/Mid Levels [facility] Emergency Department [address] [place] [address] Phone #: ext- [phone] 07/29/2020 20:03 Patient: DAMIEN PEREZ Sex: F : 1990 Age: 30yINSTITUTION[facility] ORDERING PHYSICIAN: Reynaldo AmosION #: [id number] HISTORY:ULTRASOUND PELVIS TRANSABDOMINALCOMPARISON: US\\SR - US PELVIC [...] 29, 2020 11:38:26 PM EST by:Marilee Kuo, [employer]. Study type: obstetrical evaluation. The study was interpretedby the radiologist.Laboratory Tests: Laboratory tests have been ordered, with results reviewed and considered in themedical decision making process.US OB 1ST TRI W TV IF NEEDED: (CLARA: 07/29/2020 21:45) ( MsgRcvd 07/29/2020 23:38) Finalresults Test Result Flag Units (Reference) US OB 1ST TRI W TV IF NEEDED [address] [place] [address] ---------NAME--------- NUMBER SEX AGE ADMIT DISC. XRAY# F/C TYPE ANA QUEZADA [id number] F 30 07/29/20 [id number] SB2 E/R 4 Clinical Report - Physicians/Mid Levels [facility] Emergency Department [address] [place] [address] Phone #: ext- [phone] 07/29/2020 20:03 Patient: DAMIEN PEREZ Sex: F : 1990 Age: 30y DATE OF : 1990 M/R# [id number] #: [id number] TR-03 LOCATION: EMERGENCY DEPT TRANSCRIBED: 07/29/20 23:38 IF US OB 1ST TRI W TV IF NEEDED [id number] COMPLETED:07/29/20 23:15 ADB 5345 Reason(s): left pelvic [...] 450) 5 Clinical Report - Physicians/Mid Levels [facility] Emergency Department [address] [place] [address] Phone #: ext- [phone] 07/29/2020 20:03 Patient: DAMIEN PEREZ Sex: F [...] Male GFR Interprentation 20-49 yrs >60 mL/min Ammxhn87-91 yrs >56 mL/min Normal 60-69 yrs >49 mL/min Normal 70-79yrs>42 mL/min Normal 80 and above >35 mL/min Normal Female GFRInterpretation 20-39 yrs >60 mL/min Normal 40-49 yrs >58 mL/minNormal 50-59 yrs >51 mL/min Normal 60-69 yrs >45 mL/min Gkmjvc01-63 yrs >39 mL/min Normal 80 and above >32 mL/min NormalLipase: (CLARA: 07/29/2020 20:05) ( Mscvd 07/29/2020 21:10) Final results Test Result Flag Units (Reference) LIPASE 25 U/L (13 - 60)Urinalysis: (CLARA: 07/29/2020 20:05) ( MsgRcvd 07/29/2020 20:42) Final results Test Result Flag Units (Reference) URINALYSIS 6 Clinical Report - Physicians/Mid Levels [facility] [place] Emergency Department [address] [place] [address] Phone #: [phone]- [phone] 07/29/2020 20:03 Patient: [...] Indicate Type Rh: (CLARA: 07/29/2020 20:05) ( [facility] 07/29/2020 21:17) Final results Test Result Flag Units (Reference) ABO GROUP A RH TYPE NEGATIVE { ABO/RH REENTER A NEGATIVE Beta-HCG, Quant Serum: (CLARA: 07/29/2020 20:05) ( [facility] 07/29/2020 21:25) Final results Test Result Flag Units (Reference) HCG QUANT 18961.0 mIU/mL Interpretation: Less than 5 mU/mL: Negative 6-10 mU/mL: Borderline (suggest repeat in 48 hours) >10: Positive Approx HCG range (mU/mL) Weeks post LMP 5.4-708 mU/mL 3-4 Weeks 217-85516 mU/mL 5-6 Weeks 4059-290136 mU/mL 7-8 Weeks 78577-584769 mU/mL 9-10 Weeks 29328-52539 mU/mL 12-14 Weeks 17252-21561 mU/mL 15-16 Weeks 8240-94910 mU/mL 17-18 Weeks Lactic Acid: (CLARA: 07/29/2020 20:05) ( [facility] 07/29/2020 20:47) Final results Test Result Flag Units (Reference) LACTIC ACID 1.1 MMOL/L (0.2 - 2.2).PROGRESS AND PROCEDURESCourse of Care: 21:45 07/29/20. workup all in and reviewed [place] [address], UAneg., A negative; will do pelvic US 23:58 07/29/20. pelvic US results in and show LIUP 7 weeks w small lt ov. cyst; pt doi ng better, made aware of results, will f/u w WINDOW SYSTEMS ADMINISTRATOR within 2 days; pt understands and agrees d/c instructions. Patient counseled in person regarding the patient's stable condition, test results, diagnosis and need for follow-up. Patient agrees with plan of care. Disposition: Condition: good and stable. Discharge decision based on the following: patient's condition is stable; patient's condition is improved; 7 Clinical Report - Physicians/Mid Levels [facility] [place] Emergency Department [address] [place] [address] Phone #: [phone]- [phone] 07/29/2020 20:03 Patient: DAMIEN PEREZ Sex: F : 1990 Age: 30y patient [...] not smoke. Warnings: Further evaluation is necessary (WINDOW SYSTEMS ADMINISTRATOR). It is very important to follow up [...] department as needed. Follow up with an warehouse foreman tomorrow even if well. Call for an appointment. Reason for referral: evaluation and treatment. Summary of care provided to patient via paper. Understanding of the discharge instructions verbalized by patient. Expected course of illness, discharge instructions, activity level, diet, follow-up appointment and risks and benefits of treatment reviewed with patient and understanding verbalized. Agrees to plan of care. Follow-up with: [facility], , , [address] [place] [address], [place], [place], [address] Follow up tomorrow even if well. Call for an appointment. Reason for referral: evaluation and treatment. Summary of care provided to patient via paper. 8 Clinical Report - Physicians/Mid Levels [facility] [place] Emergency Department [address] [place] [address] Phone #: [phone] 07/29/2020 20:03 [id number] Sex: F : 1990 Age: 30y(Electronically signed by Reynaldo Guevara M.D. 07/30/2020 00:09) Name Value Range Interpretation Code Description Data Meghna rce(s) Supporting Document(s) ID Date Data Source [id number] 07/29/2020 11:38:00 [place] [address] ---------NAME--------- NUMBER SEX AGE ADMIT DISC. XRAY# F/C TYPE ANA QUEZADA [id number] F 30 07/29/20 [id number] SB2 E/R DATE OF : 1990 M/R# [id number] #: [id number] TR-03 LOCATION: EMERGENCY DEPT TRANSCRIBED: 07/29/20 23:38 IF US OB 1ST TRI W TV IF NEEDED [id number] COMPLETED:07/29/20 23:15 ADB 5345 Reason(s): left pelvic [...] rce(s) Supporting Document(s) ID Date Data Source [id number] 07/29/2020 09:25:00 PM [facility] Name Value Range Interpretation Code Description Data Meghna rce(s) Supporting Document(s) Choriogonadotropin.intact [Units/volume] in Serum or Plasma 23373.0 mIU/mL [facility] [place] Interpr etation: Less than 5 mU/mL: Negative 6-10 mU/mL: Borderline (suggest repeat in 48 hours) >10: Positive Approx HCG range (mU/mL) Weeks post LMP 5.4-708 mU/mL 3-4 Weeks 217-33481 mU/mL 5-6 Weeks 4059-886239 mU/mL 7-8 Weeks 05302-706260 mU/mL 9-10 Weeks 79767-02146 mU/mL 12-14 Weeks 81680-04337 mU/mL 15-16 Weeks 8240- 66984 mU/mL 17-18 Weeks ID Date Data Source [id number] 07/29/2020 09:17:00 PM [facility] Name Value Range Interpretation Code Description Data Meghna rce(s) Supporting Document(s) ABO group [Type] in Blood A [facility] Rh [Type] in Blood NEGATIVE [facility] { ABO/RH REENTER A NEGATIVE ID Date Data Source [id number] 07/29/2020 09:13:00 PM [facility] Name Value Range Interpretation Code Description Data Meghna rce(s) Supporting Document(s) COMPREHENSIVE METABOLIC PANEL [facility] [place] COMPREHENSIVE METABOLIC PANEL Sodium [Moles/volume] in Serum or Plasma 135 mEq/L 134 - 153 [facility] Potassium [Moles/volume] in Serum or Plasma 3.8 mEq/L 3.6 - 5.0 [facility] Chloride [Moles/volume] in Serum or Plasma 100 mEq/L 98 - 107 [facility] Carbon dioxide, total [Moles/volume] in Serum or Plasma 24 MEQ/L 22 - 30 [facility] Glucose [Mass/volume] in Serum or Plasma 91 MG/DL 70 - 99 [facility] BUN 9 MG[facility]DL 7 - [facility] Creat[facility] [Mass/volume] in Serum or Plasma 0.6 MG/DL 0.7 - 1.[address] [facility] BUN/CREAT 15 8 - 27 [facility] Protein [Mass/volume] in Serum or Plasma 8.0 G/DL 6.3 - 8.2 [facility] Albumin [Mass/volume] in Serum or Plasma 4.8 G/DL 3.9 - 5.0 [facility] Globulin [Mass/volume] in Serum by calculation 3.2 GM/DL 2.4 - 3.2 [facility] A/G RATIO 1.5 0.8 - 2.0 [facility] Calcium [Mass/volume] in Serum or Plasma 9.6 MG/DL 8.4 - 10.2 [facility] Bilirubin.total [Mass/volume] in Serum or Plasma <0.7 MG/DL 0.2 - 1.3 [facility] Alkaline phosphatase [Enzymatic activity/volume] in Serum or Plasma 49 U/L 38 - 126 [facility] Aspartate aminotransferase [Enzymatic activity/volume] in Serum or Plasma 17 U/L 5 - 40 [facility] Alanine aminotransferase [Enzymatic activity/volume] in Seru m or Plasma 12 U/L 7 - 56 [facility] Anion gap 3 in Serum or Plasma 11.0 mmol/L 8.0 - 16.0 [facility] AGE 30 yrs [facility] NON-AA GFR >60 mL/min [facility] AFR AMER GFR >60 mL/min [facility] Male GFR In terprentation 20-49 [...] >32 mL/min Normal ID Date Data Source [id number] 07/29/2020 09:10:[address] [facility] Name Value Range Interpretation Code Description Data Meghna rce(s) Supporting Document(s) Lipase [Enzymatic activity/volume] in Serum or Plasma 25 U/L 13 - 60 [facility] ID Date Data Source [id number] 07/29/2020 08:47:[address] [facility] Name Value Range Interpretation Code Description Data Meghna rce(s) Supporting Document(s) Lactate [Moles/volume] in Serum or Plasma 1.1 MMOL/L 0.2 - 2.2 [facility] ID Date Data Source [id number] 07/29/2020 08:47:00 PM EST [facility] Name Value Range Interpretation Code Description Data Meghna rce(s) Supporting Document(s) CBC W/AUTOMATED DIFF [facility] COMPLETE BLOOD COUNT Leukocytes [#/volume] in Blood by Automated count 7.4 10^3/uL 4.2 - [address] [facility] Erythrocytes [#/volume] in Blood by Automated count 4.38 10^6/uL 4. 20 - 5.40 [facility] Hemoglobin [Mass/volume] in Blood 14.0 g/dL 12.0 - 16.0 [facility] Hematocrit [Volume Fraction] of Blood by Automated count 40.8 % 3 7.0 - 47.0 [facility] Erythrocyte mean corpuscular volume [Entitic volume] by Auto mated count 93.2 fL 81.0 - 101 [facility] Erythrocyte mean corpuscular hemoglobin [Entitic mass] by Automated count 32.0 pg 27.0 - 34.0 [facility] Erythrocyte mean corpuscular hemoglobin concentration [Mass/volume] by Automated count 34.3 g/dL 31.0 - 36.0 [facility] [place] Erythrocyte distribution width [Ratio] by Automated count 12.1 % 11.5 - 14.5 [facility] Platelets [#/volume] in Blood by Automated count 196 10^3/uL 150 - [address] [facility] Platelet mean volume [Entitic volume] in Blood by Automated count 11.0 fL 7.4 - 10.[address] [facility] Neutrophils/100 leukocytes in Blood by Automated count 69.7 % 37. 0 - 80.0 [facility] Lymphocytes/100 leukocytes in Blood by Manual count 24.2 % 25.0 - 40.[address] [facility] [place] Monocytes/100 leukocytes in Blood by Automated count 5.2 % 3.0 - 8.0 [facility] Eosinophils/100 leukocytes in Blood by Automated count 0.1 % 0.0 - 7.0 [facility] Basophils/100 leukocytes in Blood by Automated count 0.4 % 0.0 - 2.5 [facility] %IG 0.4 % 0.0 - 0.0 [facility] %NRBC 0.0 % 0.0 - 0.0 [facility] al Neutrophils [#/volume] in Blood by Automated count 5.18 10^3/uL 2.00 - 6.90 [facility] Lymphocytes [#/volume] in Blood by Automated count 1.80 10^3/uL 0.60 - 3.40 [facility] Monocytes [#/volume] in Blood by Automated count 0.39 10^3/uL 0.00 - 0.90 [facility] Eosinophils [#/volume] in Blood by Automated count 0.01 10^3/uL 0.00 - 0.70 [facility] Basophils [#/volume] in Blood by Automated count 0.03 10^3/uL 0.00 - 0.20 [facility] #IG 0.03 10^3/uL 0.00 - 0.10 [facility] #NRBC 0.00 10^3/uL 0.00 - 0.00 [facility] MANUAL DIFF NOT INDICATED [facility] RBC MORPH NOT INDICATED [facility] ID Date Data Source [id number] 07/29/2020 08:42:[address] [facility] Name Value Range Interpretation Code Description Data Meghna rce(s) Supporting Document(s) [facility]IS [facility] URINALYSIS SOURCE R [facility] COLOR yellow NORMAL: Yellow [facility] CLARITY hazy NORMAL: Clear [facility] Specific gravity of Urine by Test strip 1.010 1.001 - 1.030 [facility] pH 6 5 - 9 [facility] Glucose [Mass/volume] in Urine by Test strip NORM NORMAL: Negat leatha [facility] Bilirubin.total [Presence] in Urine by Test strip NEG NORMAL: Negative [facility] Ketones [Presence] in Urine by Test strip NEG NORMAL: Negative [facility] Protein [Mass/volume] in Urine by Test strip NEG NORMAL: Negat leatha [facility] Nitrite [Presence] in Urine by Test strip NEG NORMAL: Negative [facility] BLOOD NEG NORMAL: Negative [facility] Leukocyte esterase [Presence] in Urine by Test strip NEG JULIA L: Negative [facility] Urobilinogen [Mass/volume] in Urine by Test strip NOR less laquita n 1.0 mg/dL [facility] MICROSCOPIC Not Indicate [facility] ID Date Data Source [id number] 06/10/2020 12:00:00 AM EST [facility] Name Value Range Interpretation Code Description Data Meghna rce(s) Supporting Document(s) Carestart Rapid COVID Antigen Test Positive [facility] This lab was reported by [facility]. ID Date Data Source [id number] 06/04/2020 05:20:00 PM EST [facility] Name Value Range Interpretation Code Description Data Meghna rce(s) Supporting Document(s) SARS coronavirus 2 RNA Not Detected [facility] This lab was ordered by [facility] and reported by [facility]. ID Date Data Source [id number] 05/28/2020 07:29:00 AM EST [facility] Name Value Range Interpretation Code Description Data Meghna rce(s) Supporting Document(s) SARS coronavirus 2 RNA [facility] This lab was ordered by [facility] and reported by [facility]. ID Date Data Source [id number] 05/21/2020 03:38:00 PM EST [facility] Name Value Range Interpretation Code Description Data Meghna rce(s) Supporting Document(s) SARS coronavirus 2 RNA [Presence] in Res piratory specimen by ALLI with probe detection [facility] This lab was ordered by [facility] a nd reported by [facility]. ID Date Data Source [id number] 04/30/2020 12:00:00 PM EST [facility] Name Value Range Interpretation Code Description Data Meghna rce(s) Supporting Document(s) SARS coronavirus 2 RNA [facility] This lab was ordered by [facility] and reported by [facility]. ID Date Data Source [id number] 04/16/2020 11:42:00 AM EST [facility] Name Value Range Interpretation Code Description Data Meghna rce(s) Supporting Document(s) SARS coronavirus 2 RNA [facility] This lab was ordered by [facility] and reported by [facility]. ID Date Data Source [id number] 04/09/2020 07:45:00 AM EST [facility] Name Value Range Interpretation Code Description Data Meghna rce(s) Supporting Document(s) SARS coronavirus 2 RNA [facility] This lab was ordered by [facility] and reported by [facility]. ID Date Data Source [id number] 04/02/2020 10:38:00 AM EST [facility] Name Value Range Interpretation Code Description Data Meghna rce(s) Supporting Document(s) SARS coronavirus 2 RNA [facility] This lab was ordered by [facility] and reported by [facility]. ID Date Data Source [id number] 03/26/2020 07:30:00 AM EDT [facility] Name Value Range Interpretation Code Description Data Meghna rce(s) Supporting Document(s) SARS coronavirus 2 RNA [facility] This lab was ordered by [facility] and reported by [facility]. Procedure Social History Code Duration Value Status Description Data Source(s ) Smoking 03/19/2021 12:00:00 AM EDT Never Smoker completed Never S moker eCW1 ([facility]) Smoking 03/19/2021 12:00:00 AM EDT Never Smoker completed Never S moker eCW1 ([facility]) Smoking 03/19/2021 12:00:00 AM EDT Never Smoker completed Never S moker eCW1 ([facility]) Smoking 03/13/2021 12:00:00 AM EDT Never Smoker completed Never S moker eCW1 ([facility]) Smoking 02/28/2021 12:00:00 AM EDT Never Smoker completed Never S moker eCW1 ([facility]) Smoking 02/28/2021 12:00:00 AM EDT Never Smoker completed Never S moker eCW1 ([facility]) Smoking 02/28/2021 12:00:00 AM EDT Never Smoker completed Never S moker eCW1 ([facility]) Smoking 02/20/2021 12:00:00 AM EDT Never Smoker completed Never S moker eCW1 ([facility]) Smoking 02/13/2021 12:00:00 AM EDT Never Smoker completed Never S moker eCW1 ([facility]) Smoking 01/20/2021 12:00:00 AM EDT Never Smoker completed Never S moker eCW1 ([facility]) Smoking 01/20/2021 12:00:00 AM EDT Never Smoker completed Never S moker eCW1 ([facility]) Smoking 01/20/2021 12:00:00 AM EDT Never Smoker completed Never S moker eCW1 ([facility]) Smoking 01/08/2021 12:00:00 AM EDT Never Smoker completed Never S moker eCW1 ([facility]) Smoking 12/15/2020 12:00:00 AM EDT Never Smoker completed Never S moker eCW1 ([facility]) Smoking 12/09/2020 12:00:00 AM EDT Never Smoker completed Never S moker eCW1 ([facility]) Smoking 12/09/2020 12:00:00 AM EDT Never Smoker completed Never S moker eCW1 ([facility]) Smoking 12/09/2020 12:00:00 AM EDT Never Smoker completed Never S moker eCW1 ([facility]) Smoking 10/30/2020 12:00:00 AM EDT Never Smoker completed Never S moker eCW1 ([facility]) Smoking 10/30/2020 12:00:00 AM EDT Never Smoker completed Never S moker eCW1 ([facility]) Smoking 10/30/2020 12:00:00 AM EDT Never Smoker completed Never S moker eCW1 ([facility]) Smoking 10/30/2020 12:00:00 AM EDT Never Smoker completed Never S moker eCW1 ([facility]) Smoking 10/30/2020 12:00:00 AM EDT Never Smoker completed Never S moker eCW1 ([facility]) Smoking 10/30/2020 12:00:00 AM EDT Never Smoker completed Never S moker eCW1 ([facility]) Smoking 10/08/2020 12:00:00 AM EDT Never Smoker completed Never S moker eCW1 ([facility]) Smoking 10/08/2020 12:00:00 AM EDT Never Smoker completed Never S moker eCW1 ([facility]) Smoking 10/08/2020 12:00:00 AM EDT Never Smoker completed Never S moker eCW1 ([facility]) Smoking 09/19/2020 12:00:00 AM EDT Never Smoker completed Never S moker eCW1 ([facility]) Smoking 09/19/2020 12:00:00 AM EDT Never Smoker completed Never S moker eCW1 ([facility]) Smoking 09/19/2020 12:00:00 AM EDT Never Smoker completed Never S moker eCW1 ([facility]) Smoking 09/19/2020 12:00:00 AM EDT Never Smoker completed Never S moker eCW1 ([facility]) Smoking 09/11/2020 12:00:00 AM EDT Never Smoker completed Never S moker eCW1 ([facility]) Smoking 08/27/2020 12:00:00 AM EDT Never Smoker completed Never S moker eCW1 ([facility]) Smoking 04/02/2020 12:00:00 AM EST Patient has never smoked co mpleted Patient has never smoked MEDENT ([facility]) Smoking 03/05/2020 12:00:00 AM EDT Never Smoker completed Never S moker eCW1 ([facility]) Vital Signs ID Date Data Source UNK Name Value Range Interpretation Code Description Data Source(s) Systolic blood pressure 120 mm[Hg] 120 mm[Hg] M EDENT ([facility]) Diastolic blood pressure 64 mm[Hg] 64 mm[Hg] MEDENT ([facility]) Body height 68.1 [in_i] 68.1 [in_i] MEDENT ([facility]) 5'8.10" Body weight 183.38 [lb_av] 183.38 [lb_av] MEDEN T ([facility]) Body mass index (BMI) [Ratio] 27.8 kg/m2 27.8 k g/m2 MEDENT ([facility]) Heart rate 90 /min 90 /min MEDENT ([facility]) Respiratory rate 18 /min 18 /min MEDENT ( [facility]) Body temperature 98.6 [degF] 98.6 [degF] MEDENT ([facility]) Oxygen saturation in Arterial blood by Pulse oximetry 97 % 97 % MEDENT ([facility]) [place] body weight 140 [lb_av] 140 [lb_av] MEDEN T ([facility]) Body weight 197 [lb_av] 197 [lb_av] eCW1 (Replaced by [facility]) Body weight 89.36 kg 89.36 kg W1 ([facility]) Body height 69 [in_i] 69 [in_i] eCW1 ([facility]) Body mass index (BMI) [Ratio] 29.092 kg/m2 29.0 92 kg/m2 eCW1 ([facility]) Systolic blood pressure 110 mm[Hg] 110 mm[Hg] e CW1 ([facility]) Diastolic blood pressure 78 mm[Hg] 78 mm[Hg] eCW1 ([facility]) Body weight 196.4 [lb_av] 196.4 [lb_av] eCW1 ([facility]) Body weight 89.09 kg 89.09 kg eCW1 ([facility]) Body height 69 [in_i] 69 [in_i] eCW1 ([facility]) Body mass index (BMI) [Ratio] 29.003 kg/m2 29.0 03 kg/m2 eCW1 ([facility]) Systolic blood pressure 110 mm[Hg] 110 mm[Hg] e CW1 ([facility]) Diastolic blood pressure 80 mm[Hg] 80 mm[Hg] eCW1 ([facility]) Body weight 198 [lb_av] 198 [lb_av] eCW1 (Replaced by [facility]) Body weight 89.81 kg 89.81 kg eCW1 ([facility]) Body height 69 [in_i] 69 [in_i] eCW1 ([facility]) Body mass index (BMI) [Ratio] 29.239 kg/m2 29.2 39 kg/m2 eCW1 ([facility]) Systolic blood pressure 102 mm[Hg] 102 mm[Hg] e CW1 ([facility]) Diastolic blood pressure 70 mm[Hg] 70 mm[Hg] eCW1 ([facility]) Body weight 192 [lb_av] 192 [lb_av] eCW1 (Replaced by [facility]) Body height 69 [in_i] 69 [in_i] eCW1 ([facility]) Body mass index (BMI) [Ratio] 28.353 kg/m2 28.3 53 kg/m2 eCW1 ([facility]) Systolic blood pressure 120 mm[Hg] 120 mm[Hg] e CW1 ([facility]) Diastolic blood pressure 70 mm[Hg] 70 mm[Hg] eCW1 ([facility]) Body weight 190.4 [lb_av] 190.4 [lb_av] eCW1 ([facility]) Body weight 86.36 kg 86.36 kg eCW1 ([facility]) Body height 69 [in_i] 69 [in_i] eCW1 ([facility]) Body mass index (BMI) [Ratio] 28.117 kg/m2 28.1 17 kg/m2 eCW1 ([facility]) Systolic blood pressure 110 mm[Hg] 110 mm[Hg] e CW1 ([facility]) Diastolic blood pressure 70 mm[Hg] 70 mm[Hg] eCW1 ([facility]) Body weight 189.0 [lb_av] 189.0 [lb_av] eCW1 ([facility]) Body height 69 [in_i] 69 [in_i] eCW1 ([facility]) Body mass index (BMI) [Ratio] 27.91 kg/m2 27.91 kg/m2 eCW1 ([facility]) Systolic blood pressure 108 mm[Hg] 108 mm[Hg] e CW1 ([facility]) Diastolic blood pressure 66 mm[Hg] 66 mm[Hg] eCW1 ([facility]) Body weight 182 [lb_av] 182 [lb_av] eCW1 (Replaced by [facility]) Body weight 82.55 kg 82.55 kg eCW1 ([facility]) Body height 69 [in_i] 69 [in_i] eCW1 (Formerly [facility], [facility]) Body mass index (BMI) [Ratio] 26.877 kg/m2 26.8 77 kg/m2 W1 ([facility]) Systolic blood pressure 110 mm[Hg] 110 mm[Hg] e CW1 ([facility]) Diastolic blood pressure 70 mm[Hg] 70 mm[Hg] eCW1 ([facility]) Body weight 180.6 [lb_av] 180.6 [lb_av] eCW1 ([facility]) Body height 69 [in_i] 69 [in_i] eCW1 (Formerly [facility], [facility]) Body mass index (BMI) [Ratio] 26.67 kg/m2 26.67 kg/m2 eCW1 ([facility]) Systolic blood pressure 118 mm[Hg] 118 mm[Hg] e CW1 ([facility]) Diastolic blood pressure 70 mm[Hg] 70 mm[Hg] eCW1 ([facility]) Body weight 176 [lb_av] 176 [lb_av] eCW1 (Replaced by [facility]) Body height 69 [in_i] 69 [in_i] eCW1 (Formerly [facility], [facility]) Body mass index (BMI) [Ratio] 25.991 kg/m2 25.9 91 kg/m2 eCW1 ([facility]) Systolic blood pressure 118 mm[Hg] 118 mm[Hg] e CW1 ([facility]) Diastolic blood pressure 58 mm[Hg] 58 mm[Hg] eCW1 ([facility]) Body weight 175 [lb_av] 175 [lb_av] eCW1 (Replaced by [facility]) Body weight 79.74 kg 79.74 kg eCW1 (Formerly [facility], [facility]) Body height 69 [in_i] 69 [in_i] eCW1 ([facility]ly [facility], [facility]) Body mass index (BMI) [Ratio] 25.843 kg/m2 25.8 43 kg/m2 eCW1 ([facility]) Systolic blood pressure 104 mm[Hg] 104 mm[Hg] e CW1 ([facility]) Diastolic blood pressure 68 mm[Hg] 68 mm[Hg] eCW1 ([facility]) Body weight 171 [lb_av] 171 [lb_av] eCW1 (Replaced by [facility]) Body height 69 [in_i] 69 [in_i] eCW1 (Formerly [facility], [facility]) Body mass index (BMI) [Ratio] 25.252 kg/m2 25.2 52 kg/m2 eCW1 ([facility]) Systolic blood pressure 104 mm[Hg] 104 mm[Hg] e CW1 ([facility]) Diastolic blood pressure 64 mm[Hg] 64 mm[Hg] eCW1 ([facility]) Body weight 169 [lb_av] 169 [lb_av] eCW1 (Replaced by [facility]) Body height 69 [in_i] 69 [in_i] eCW1 ([facility]ly [facility], [facility]) Body mass index (BMI) [Ratio] 24.957 kg/m2 24.9 57 kg/m2 eCW1 ([facility]) Systolic blood pressure 114 mm[Hg] 114 mm[Hg] e CW1 ([facility]) Diastolic blood pressure 62 mm[Hg] 62 mm[Hg] eCW1 ([facility]) Body mass index (BMI) [Ratio] 25.4 kg/m2 25.4 k g/m2 MEDENT ([facility]) Heart rate 95 /min 95 /min MEDENT ([facility]) Respiratory rate 16 /min 16 /min MEDENT ( [facility]) Body temperature 98.8 [degF] 98.8 [degF] MEDENT ([facility]) Oxygen saturation in Arterial blood by Pulse oximetry 98 % 98 % MED[facility] ([facility]) [place] body weight 140 [lb_av] 140 [lb_av] MEDEN T ([facility]) Systolic blood pressure 130 mm[Hg] 130 mm[Hg] M EDENT ([facility]) Diastolic blood pressure 78 mm[Hg] 78 mm[Hg] [facility] ([facility]) Body height 68.1 [in_i] 68.1 [in_i] [facility] 5'8.10" Body weight 167.50 [lb_av] 167.50 [lb_av] MEDEN T ([facility]) Systolic blood pressure 109 mm[Hg] 109 mm[Hg] M EDENT ([facility], [facility]) Diastolic blood pressure 76 mm[Hg] 76 mm[Hg] MEDENT ([facility], [facility]) Heart rate 92 /min 92 /min MED[facility] ([facility], [facility]) Respiratory rate 16 /min 16 /min [facility]) Oxygen saturation in Arterial blood by Pulse oximetry 96 % 96 % [facility]) Body temperature 99.3 [degF] 99.3 [degF] MEDENT ([facility], [facility]) Body weight 173.00 [lb_av] 173.00 [lb_av] MEDEN T ([facility], [facility]) Body height 69 [in_i] 69 [in_i] [facility], [facility]) 5'9" Body mass index (BMI) [Ratio] 25.5 kg/m2 25.5 k g/m2 MED[facility] ([facility], [facility]) Body weight 170.6 [lb_av] 170.6 [lb_av] W1 ([facility]) Body height 69 [in_i] 69 [in_i] W1 ([facility]ly [facility], [facility]) Body mass index (BMI) [Ratio] 25.19 kg/m2 25.19 kg/m2 eCW1 ([facility]) Systolic blood pressure 102 mm[Hg] 102 mm[Hg] e CW1 ([facility]) Diastolic blood pressure 62 mm[Hg] 62 mm[Hg] eCW1 ([facility]) Body temperature 99.1 [degF] 99.1 [degF] MEDENT ([facility]) Oxygen saturation in Arterial blood by Pulse oximetry 99 % 99 % [facility] ([facility]) Heart rate 69 /min 69 /min [facility] ([facility]) Respiratory rate 18 /min 18 /min [facility] ( [facility]) [place] body weight 140 [lb_av] 140 [lb_av] MEDEN T ([facility]) Systolic blood pressure 116 mm[Hg] 116 mm[Hg] M EDENT ([facility]) Diastolic blood pressure 68 mm[Hg] 68 mm[Hg] [facility] ([facility]) Body height 68.1 [in_i] 68.1 [in_i] MED[facility] ([facility]) 5'8.10" Body weight 170.38 [lb_av] 170.38 [lb_av] MEDEN T ([facility]) Body mass index (BMI) [Ratio] 25.8 kg/m2 25.8 k g/m2 [facility] ([facility]) Patient Treatment Plan of Care Planned Activity Planned Date Details Description Data Source (s) Amphetamine aspartate 2.5 MG / Amphetami ne Sulfate 2.5 MG / Dextroamphetamine saccharate 2.5 MG / Dextroamphetamine Sulfate 2.5 MG Oral Tablet [Adderall] 03/06/2021 12:00:00 AM EDT eCW1 (Formerly [facility], [facility]) Amphetamine aspartate 2.5 MG / Amphetami ne Sulfate 2.5 MG / Dextroamphetamine saccharate 2.5 MG / Dextroamphetamine Sulfate 2.5 MG Oral Tablet [Adderall] 03/06/2021 12:00:00 AM EDT eC1 (Formerly [facility], [facility]) Amphetamine aspartate 2.5 MG / Amphetami ne Sulfate 2.5 MG / Dextroamphetamine saccharate 2.5 MG / Dextroamphetamine Sulfate 2.5 MG Oral Tablet [Adderall] 03/06/2021 12:00:00 AM EDT eCW1 ([facility]ly [facility], [facility]) Amphetamine aspartate 2.5 MG / Amphetami ne Sulfate 2.5 MG / Dextroamphetamine saccharate 2.5 MG / Dextroamphetamine Sulfate 2.5 MG Oral Tablet [Adderall] 01/09/2021 12:00:00 AM EDT eCW1 ([facility]ly [facility], [facility]) Omeprazole 20 MG Delayed Release Oral Capsule 01/09/2021 12:00:00 A M EDT eCW1 ([facility]) Amphetamine aspartate 2.5 MG / Amphetami ne Sulfate 2.5 MG / Dextroamphetamine saccharate 2.5 MG / Dextroamphetamine Sulfate 2.5 MG Oral Tablet [Adderall] 01/09/2021 12:00:00 AM EDT eCW1 ([facility]ly [facility], [facility]) Omeprazole 20 MG Delayed Release Oral Capsule 01/09/2021 12:00:00 A M EDT eCW1 ([facility]) Amphetamine aspartate 2.5 MG / Amphetami ne Sulfate 2.5 MG / Dextroamphetamine saccharate 2.5 MG / Dextroamphetamine Sulfate 2.5 MG Oral Tablet [Adderall] 01/09/2021 12:00:00 AM EDT eCW1 ([facility]ly [facility], [facility]) Omeprazole 20 MG Delayed Release Oral Capsule 01/09/2021 12:00:00 A M EDT eCW1 ([facility]) Amphetamine aspartate 2.5 MG / Amphetami ne Sulfate 2.5 MG / Dextroamphetamine saccharate 2.5 MG / Dextroamphetamine Sulfate 2.5 MG Oral Tablet [Adderall] 12/13/2020 12:00:00 AM EDT eCW1 ([facility]ly [facility], [facility]) Amphetamine aspartate 2.5 MG / Amphetami ne Sulfate 2.5 MG / Dextroamphetamine saccharate 2.5 MG / Dextroamphetamine Sulfate 2.5 MG Oral Tablet [Adderall] 12/13/2020 12:00:00 AM EDT eCW1 ([facility]ly [facility], [facility]) Amphetamine aspartate 2.5 MG / Amphetami ne Sulfate 2.5 MG / Dextroamphetamine saccharate 2.5 MG / Dextroamphetamine Sulfate 2.5 MG Oral Tablet [Adderall] 12/10/2020 12:00:00 AM EDT eCW1 ([facility]ly [facility], [facility]) Amphetamine aspartate 2.5 MG / Amphetami ne Sulfate 2.5 MG / Dextroamphetamine saccharate 2.5 MG / Dextroamphetamine Sulfate 2.5 MG Oral Tablet [Adderall] 12/10/2020 12:00:00 AM EDT eCW1 ([facility], [facility]) Amphetamine aspartate 2.5 MG / Amphetami ne Sulfate 2.5 MG / Dextroamphetamine saccharate 2.5 MG / Dextroamphetamine Sulfate 2.5 MG Oral Tablet [Adderall] 11/12/2020 12:00:00 AM EDT eCW1 ([facility], [facility]) Amphetamine aspartate 2.5 MG / Amphetami ne Sulfate 2.5 MG / Dextroamphetamine saccharate 2.5 MG / Dextroamphetamine Sulfate 2.5 MG Oral Tablet [Adderall] 11/12/2020 12:00:00 AM EDT eCW1 ([facility], [facility]) Amphetamine aspartate 2.5 MG / Amphetami ne Sulfate 2.5 MG / Dextroamphetamine saccharate 2.5 MG / Dextroamphetamine Sulfate 2.5 MG Oral Tablet [Adderall] 11/12/2020 12:00:00 AM EDT eCW1 ([facility], [facility]) Amphetamine aspartate 2.5 MG / Amphetami ne Sulfate 2.5 MG / Dextroamphetamine saccharate 2.5 MG / Dextroamphetamine Sulfate 2.5 MG Oral Tablet [Adderall] 11/12/2020 12:00:00 AM EDT eCW1 ([facility], [facility]) Amphetamine aspartate 2.5 MG / Amphetami ne Sulfate 2.5 MG / Dextroamphetamine saccharate 2.5 MG / Dextroamphetamine Sulfate 2.5 MG Oral Tablet [Adderall] 10/09/2020 12:00:00 AM EDT eCW1 ([facility], [facility]) Amphetamine aspartate 2.5 MG / Amphetami ne Sulfate 2.5 MG / Dextroamphetamine saccharate 2.5 MG / Dextroamphetamine Sulfate 2.5 MG Oral Tablet [Adderall] 10/09/2020 12:00:00 AM EDT eCW1 ([facility], [facility]) Amphetamine aspartate 2.5 MG / Amphetami ne Sulfate 2.5 MG / Dextroamphetamine saccharate 2.5 MG / Dextroamphetamine Sulfate 2.5 MG Oral Tablet [Adderall] 09/19/2020 12:00:00 AM EDT eCW1 ([facility], [facility]) Amphetamine aspartate 2.5 MG / Amphetami ne Sulfate 2.5 MG / Dextroamphetamine saccharate 2.5 MG / Dextroamphetamine Sulfate 2.5 MG Oral Tablet [Adderall] 09/19/2020 12:00:00 AM EDT eCW1 ([facility], [facility]) Amphetamine aspartate 2.5 MG / Amphetami ne Sulfate 2.5 MG / Dextroamphetamine saccharate 2.5 MG / Dextroamphetamine Sulfate 2.5 MG Oral Tablet [Adderall] 09/19/2020 12:00:00 AM EDT eCW1 ([facility], [facility]) Amphetamine aspartate 2.5 MG / Amphetami ne Sulfate 2.5 MG / Dextroamphetamine saccharate 2.5 MG / Dextroamphetamine Sulfate 2.5 MG Oral Tablet [Adderall] 09/19/2020 12:00:00 AM EDT eCW1 ([facility]ly [facility], [facility]) Metoclopramide 5 MG Oral Tablet [Reglan] 08/27/2020 12:00:00 AM EDT eCW1 ([facility])
== END 2021-02-07 19:05 | disposition home or self-care (01) ==
LOC: M LDO 16:46 → M LDI 16:47 → M LDO 02-07 19:00
PROVIDERS: ADMIT Obstetrics & Gynecology; ATTEND Obstetrics & Gynecology
DX: O47.03 False labor before 37 completed weeks of gestation, third trimester (principal); O26.893 Other specified pregnancy related conditions, third trimester; Z3A.34 34 weeks gestation of pregnancy; M54.5 Low back pain; R10.2 Pelvic and perineal pain; O99.113 Other diseases of the blood and blood-forming organs and certain disorders involving the immune mechanism complicating pregnancy, third trimester; D69.6 Thrombocytopenia, unspecified
CPT/HCPCS: 36415; 59025; 76775; 81001; 85027; 85384; 85460; 85610; 85730; 96372; G0463; J0595; J0702; J3105

== ENCOUNTER → 2021-02-20 | Outpatient (REF) | payer OTHER ==
[~2021-02-20] MED LIST changes: +ADDE12.5 PO; +ADDE1TAB14 PO; +PERCOCET PO; +REGL5TAB2 PO
== END ==
LOC: M SFHCWAGY 13:28
PROVIDERS: ATTEND Advanced Practice Midwife
DX: O99.343 Other mental disorders complicating pregnancy, third trimester (principal)

== ENCOUNTER 2021-03-17 03:08 | Inpatient (IN) | payer OTHER ==
[2021-03-17] VITALS (45 sets, daily range): BP systolic 92–125; BP diastolic 53–79
[~2021-03-17] VITALS: Ht 175.3 cm; Wt 92.4 kg
--- OUTSIDE RECORDS SUMMARY | 2021-03-17 03:53 | CCD ---
Author Author [facility] Organization [facility] Address Unknown Phone Unavailable Care Team Providers Care Box Coverer Hand Name Role Phone Charity Mays Unavailable PROBLEMS Type Condition ICD9-CM Code [id number] Code Onset Dates Condition S tatus W/U Status Risk SNOMED Code Notes Problem Supervision of other normal Z34.80 Ac tive confirm 890851621 Problem ADHD F90.9 Active confirmed [id number] ALLERGIES No Known Allergies ENCOUNTERS from 1990 to 2021-03-06 Encounter Location Date Provider Diagnosis [facility] [address] [place] [address] [place] [address] Jan, Charity Mays Mental disorder affe cting in third trimester O99.343 ; Attention-deficit hyperactivity disorder, unspecified type F90.9 and 36 weeks gestation of Z3A.36 IMMUNIZATIONS Vaccine Route Administration Date Status TDAP 0.5mL Boostrix IM Intramuscular Jan 09, 2021 Administere d RHo D Immune Globulin 300mcg/1.5mL RhoGAM IM Intramuscular Dec 292020 Administered SOCIAL HISTORY Tobacco Use: Social History Observation Description Date Details (start date - stop date) Never Smoker Sex Assigned At : Social History Observation Description Sex Assigned At Unknown Alcohol Screening: Question Answer Notes Did you have a drink containing alcohol in the past year? Ye s Points 2 Interpretation Negative How often did you have six or more drinks on one occas ion in the past year? Never (0 points) How many drinks did you have on a typica l day when you were drinking in the past year? 1 or 2 (0 points) How often did you have a drink containing alcohol in t he past year? Two to four times a month (2 points) Tobacco Use: Question Answer Notes Are you a: never smoker REASON FOR REFERRAL No Information VITAL SIGNS Weight 192 lbs Jan, Height 69 in Jan, BMI 28.353 kg/m2 Jan, Blood pressure systolic 120 mm Hg Jan, Blood pressure diastolic 70 mm Hg Jan, MEDICATIONS Medication SIG (Take, Route, Frequency, Duration) Notes Start Da te End Date Status Vitamin 27-0.8 MG 1 tablet Orally Once a day Active Reglan 5 MG 1 tablet before meals Orally Twice a day for 30 day(s) Jul, Active Omeprazole 20 MG 1 capsule 30 minutes before morning meal Orally Once a day for 30 day(s) Dec, Active Adderall 10 MG 1 tablet Orally Twice a day for 30 days Feb, Active Dextroamphetamine Sulfate 10 MG 1 tablet in the morning Orally Twic e a day Not-Taking PROCEDURES No Information RESULTS Component Value Reference Range GROUP B STREP CULTURE Reviewed date:02/23/2021 11:25:40 Interpretation: Performing Lab:[facility], [facility] [address] [address] , ,[facility] REASON FOR VISIT 2 WK PN MEDICAL (GENERAL) HISTORY Type Description Date Medical History ADHD Surgical History Right ovary removed Surgical History Breast augmentation implants Hospitalization History childbirth Hospitalization History surgical related Goals Section No Information Health Concerns No Information MEDICAL EQUIPMENT No Information MENTAL STATUS No Information FUNCTIONAL STATUS No Information ASSESSMENTS Encounter Date Diagnosis Assessment Notes Treatment Notes Treatm ent Clinical Notes Jan, Mental disorder affecting pr egnancy in third trimester (ICD-10 - O99.343) Jan, Attention-deficit hyperactiv ity disorder, unspecified type (ICD-10 - F90.9) Jan, 36 weeks gestation of (ICD-10 - Z3A.36 ) PLAN OF TREATMENT Medication Medication Name Sig Start Date Stop Date Adderall 10 MG 1 tablet Orally Twice a day for 30 days Feb, Next Appt Details 1 Week Reason:PN Follow Up:1 WeekPN Insurance Providers Payer Name Payer Address Payer Phone Insured Name Patient Relati onship to Insured Coverage Start Date Coverage End Date [place] [phone] DAMIEN PEREZ
--- OUTSIDE RECORDS SUMMARY | 2021-03-17 03:53 | CCD ---
Author Author [facility] Organization [facility] Address Unknown Phone Unavailable Care Team Providers Care Acoustic Engineer Name Role Phone Charity Mays Unavailable PROBLEMS Type Condition ICD9-CM Code [id number] Code Onset Dates Condition S tatus W/U Status Risk SNOMED Code Notes Problem Supervision of other normal Z34.80 Ac tive confirm 123024497 Problem ADHD F90.9 Active confirmed [id number] ALLERGIES No Known Allergies ENCOUNTERS from 1990 to 2021-01-22 Encounter Location Date Provider Diagnosis [facility] [address] [place] [address] [place] [address] Dec, Charity Mays IMMUNIZATIONS Vaccine Route Administration Date Status TDAP [...] REASON FOR REFERRAL No Information VITAL SIGNS No information MEDICATIONS Medication SIG (Take, Route, Frequency, Duration) Notes Start Da te End Date Status Vitamin 27-0.8 MG 1 tablet Orally Once a day Active Omeprazole 20 MG 1 capsule 30 minutes before morning meal Orally Once a day for 30 day(s) Dec, Active Reglan 5 MG 1 tablet before meals Orally Twice a day for 30 day(s) Jul, Active Dextroamphetamine Sulfate 10 MG 1 tablet in the morning Orally Twic e a day Not-Taking Adderall 10 MG 1 tablet Orally BID for 30 days Dec, Active PROCEDURES No Information RESULTS No Results REASON FOR VISIT 32 week Apt. MEDICAL (GENERAL) HISTORY Type Description Date Medical History ADHD Surgical History Right ovary removed Surgical History Breast augmentation implants Hospitalization History childbirth Hospitalization History surgical related Goals Section No Information Health Concerns No Information MEDICAL EQUIPMENT No Information MENTAL STATUS No Information FUNCTIONAL STATUS No Information ASSESSMENTS No Information PLAN OF TREATMENT Medication Medication Name Sig Start Date Stop Date Omeprazole 20 MG 1 capsule 30 minutes before morning meal Orally Once a day for 30 day(s) Dec, Adderall 10 MG 1 tablet Orally BID for 30 days Dec, Next Appt Details Provider Name:Charity Mays, 2021-01-24 11:00:00 AM, [address] [place] [address] , [place], [address], Provider Name:Charity Mays, 2021-02-06 03:00:00 PM, [address] [place] [phone], [place], [address], Insurance Providers Payer Name Payer Address Payer Phone Insured Name Patient Relati onship to Insured Coverage Start Date Coverage End Date [address] [phone] DAMIEN PEREZ
--- OUTSIDE RECORDS SUMMARY | 2021-03-17 03:53 | CCD ---
Author Author [facility] Organization [facility] Address Unknown Phone Unavailable Care Team Providers Care Home Care Attendant Name Role Phone Charity Mays Unavailable PROBLEMS Type Condition ICD9-CM Code BTM45-IW Code Onset Dates Condition S tatus W/U Status Risk SNOMED Code Notes Problem Supervision of other normal Z34.80 Ac tive confirm [id number] Problem ADHD F90.9 Active confirmed [id number] ALLERGIES No Known Allergies ENCOUNTERS from 1990 to 2021-02-17 Encounter Location Date Provider Diagnosis [facility] [address] [place] [address] [place] [address] Dec, Charity Mays Mental disorder affe cting in third trimester O99.343 ; Attention-deficit hyperactivity disorder, unspecified type F90.9 and 32 weeks gestation of Z3A.32 IMMUNIZATIONS Vaccine Route Administration Date Status TDAP [...] FOR REFERRAL No Information VITAL SIGNS Weight 189.0 lbs Dec, Height 69 in Dec, BMI 27.91 kg/m2 Dec, Blood pressure systolic 108 mm Hg Dec, Blood pressure diastolic 66 mm Hg Dec, MEDICATIONS Medication SIG (Take, Route, Frequency, Duration) Notes Start Da te End Date Status Vitamin 27-0.8 MG 1 tablet Orally Once a day Active Omeprazole 20 MG 1 capsule 30 minutes before morning meal Orally Once a day for 30 day(s) Dec, Active Adderall 10 MG 1 tablet Orally BID for 30 days Dec, Active Dextroamphetamine Sulfate 10 MG 1 tablet in the morning Orally Twic e a day Not-Taking Reglan 5 MG 1 tablet before meals Orally Twice a day for 30 day(s) Jul, Active PROCEDURES No Information RESULTS No Results REASON FOR VISIT 2WK PN MEDICAL (GENERAL) HISTORY Type Description Date Medical History ADHD Surgical History Right ovary removed Surgical History Breast augmentation implants Hospitalization History childbirth Hospitalization History surgical related Goals Section No Information Health Concerns No Information MEDICAL EQUIPMENT No Information MENTAL STATUS No Information FUNCTIONAL STATUS No Information ASSESSMENTS Encounter Date Diagnosis Assessment Notes Treatment Notes Treatm ent Clinical Notes Dec, Mental disorder affecting pr egnancy in third trimester (ICD-10 - O99.343) Dec, Attention-deficit hyperactiv ity disorder, unspecified type (ICD-10 - F90.9) Dec, 32 weeks gestation of (ICD-10 - Z3A.32 ) PLAN OF TREATMENT Next Appt Details 2 Weeks Reason:PN Provider Name:Charity Mays, 2021-02-20 11:00:00 AM, [address] [place] [address] , [place], [address], Provider Name:Charity Mays, 2021-02-27 10:40:00 AM, [address] [place] [address] , [place], [address], Provider Name:Charity Mays, 2021-03-06 10:40:00 AM, [address] [place] [phone], [place], [address], Provider Name:Charity Mays, 2021-03-13 10:40:00 AM, [address] [facility], , [place], [address], Follow Up:2 WeeksPN Insurance Providers Payer Name Payer Address Payer Phone Insured Name Patient Relati onship to Insured Coverage Start Date Coverage End Date [place] [phone] DAMIEN PEREZ self
--- OUTSIDE RECORDS SUMMARY | 2021-03-17 03:53 | CCD ---
Author Author [facility] Organization [facility] Address Unknown Phone Unavailable Care Team Providers Care Reading Efficiency Course Director Name Role Phone Charity Mays Unavailable PROBLEMS Type Condition ICD9-CM Code [id number] Code Onset Dates Condition S tatus W/U Status Risk SNOMED Code Notes Problem Supervision of other normal Z34.80 Ac tive confirm 782320610 Problem ADHD F90.9 Active confirmed [id number] ALLERGIES No Known Allergies ENCOUNTERS from 1992 to 2021-01-19 Encounter Location Date Provider Diagnosis [facility] [address] [place] [address] [place] [address] Nov, Charity Mays Mental disorder affe cting in second trimester O99.342 ; Attention-deficit hyperactivity disorder, unspecified type F90.9 and 27 weeks gestation of Z3A.27 IMMUNIZATIONS Vaccine Route Administration Date Status TDAP [...] FOR REFERRAL No Information VITAL SIGNS Weight 180.6 lbs Nov, Height 69 in Nov, BMI 26.67 kg/m2 Nov, Blood pressure systolic 118 mm Hg Nov, Blood pressure diastolic 70 mm Hg Nov, MEDICATIONS Medication SIG (Take, Route, Frequency, Duration) [...] days Dec, Active PROCEDURES No Information RESULTS Component Value Reference Range Type and Screen (D Rh Antibody Screen) Reviewed date:12/21/2020 13:14:03 Interpretation: Performing Lab:[facility] [address] [place] [id number] , ,[place] [address] BLOOD TYPE A NEGATIVE AB SCREEN (INDIRECT ERIKA)VIS NEGATIVE CBC - Complete Blood Count Reviewed date:12/21/2020 13:13:58 Interpretation: Performing Lab:[facility] [address] [place] [address] , ,[place] [address] WHITE BLOOD COUNT 7.1 4.0-10.0 RED BLOOD COUNT 3.67 4.00-5.40 HEMOGLOBIN 11.7 12.0-15.5 HEMATOCRIT 35.7 36.0-47.0 MEAN CORPUSCULAR VOLUME 97.3 80.0-96.0 MEAN CORPUSCULAR HEMOGLOBIN 31.9 27.0-33.0 MEAN CORPUSCULAR HGB CONC 32.8 32.0-36.5 RED CELL DISTRIBUTION WIDTH 12.3 11.5-14.5 PLATELET COUNT, AUTOMATED 132 150-450 Glucose Challenge Test 1 Hour Reviewed date:12/21/2020 13:14:05 Interpretation: Performing Lab:[facility] [address] [place] [id number] , ,[place] [address] GLUCOSE CHALLENGE TEST 1 HOUR 87 LESS THAN 140 RHOGAM Reviewed date:12/21/2020 13:14:07 Interpretation: Performing Lab:[facility], [place] [address] RHOGAM TRANSFUSED PRODUCT: RHOGAM COUNT: 1 REASON FOR VISIT 2 wk pn MEDICAL (GENERAL) HISTORY Type Description Date Medical History ADHD Surgical History Right ovary removed Surgical History Breast augmentation implants Hospitalization History childbirth Hospitalization History surgical related Goals Section No Information Health Concerns No Information MEDICAL EQUIPMENT No Information MENTAL STATUS No Information FUNCTIONAL STATUS No Information ASSESSMENTS Encounter Date Diagnosis Assessment Notes Treatment Notes Treatm ent Clinical Notes Nov, Mental disorder affecting pr egnancy in second trimester (ICD-10 - O99.342) Nov, Attention-deficit hyperactiv ity disorder, unspecified type (ICD-10 - F90.9) Nov, 27 weeks gestation of (ICD-10 - Z3A.27 ) PLAN OF TREATMENT Medication Medication Name Sig Start Date Stop Date Omeprazole 20 MG 1 capsule 30 minutes before morning meal Orally Once a day for 30 day(s) Dec, Adderall 10 MG 1 tablet Orally BID for 30 days Dec, Treatment Notes Test Name Order Date AB SCREEN (INDIRECT ERIKA)GEL Antibody Screen 2020-11 RH ONLY RHOGAM 2020-12-18 Next Appt Details 4 Weeks Reason:PN Provider Name:Charity Mays, 2021-01-24 11:00:00 AM, [address] [place] [address] , [place], [address], Provider Name:Charity Mays, 2021-02-06 03:00:00 PM, [address] [facility] [phone], [place], [address], Follow Up:4 WeeksPN Insurance Providers Payer Name Payer Address Payer Phone Insured Name Patient Relati onship to Insured Coverage Start Date Coverage End Date [place] [phone] DAMIEN PEREZ
--- OUTSIDE RECORDS SUMMARY | 2021-03-17 03:53 | CCD ---
Author Author [facility] Organization [facility] Address Unknown Phone Unavailable Care Team Providers Care Supervisor Sawmill Name Role Phone Villegas, Jaylon Unavailable PROBLEMS Type Condition ICD9-CM Code [id number] Code Onset Dates Condition S tatus W/U Status Risk SNOMED Code Notes Problem Supervision of other normal Z34.80 Ac tive confirm [id number] Problem ADHD F90.9 Active confirmed [id number] ALLERGIES No Known Allergies ENCOUNTERS from 1992 to 2020-12-16 Encounter Location Date Provider Diagnosis [facility] [address] [place] [address] [place] [address] Nov, Jaylon Villegas Mental disorder affe cting in second trimester O99.342 IMMUNIZATIONS No Information SOCIAL HISTORY Tobacco Use: Social History Observation [...] Notes Start Da te End Date Status Reglan 5 MG 1 tablet before meals Orally Twice a day for 30 day(s) Jul, Active Vitamin 27-0.8 MG 1 tablet Orally Once a day Active Adderall 10 MG 1 tablet Orally BID for 30 days Nov, Active Dextroamphetamine Sulfate 10 MG 1 tablet in the morning Orally Twic e a day Not-Taking PROCEDURES No Information RESULTS No Results REASON FOR VISIT refill MEDICAL (GENERAL) HISTORY Type Description Date Medical [...] egnancy in second trimester (ICD-10 - O99.342) PLAN OF TREATMENT Medication Medication Name Sig Start Date Stop Date Adderall 10 MG 1 tablet Orally BID for 30 days Nov, Next Appt Details Provider Name:Charity Mays, 2020-12-18 08:40:00 AM, [address] [facility], , [place], [address], Insurance Providers Payer Name Payer Address Payer Phone Insured Name Patient Relati onship to Insured Coverage Start Date Coverage End Date [address] [phone] DAMIEN PEREZ self
--- OUTSIDE RECORDS SUMMARY | 2021-03-17 03:53 | CCD ---
Author Author [facility] Organization [facility] [employer] [facility] Address Unknown Phone Unavailable Care Team Providers Care Dining Room Host/Hostess Name Role Phone Charity Mays Unavailable PROBLEMS Type Condition ICD9-CM Code [id number]-ZE Code Onset Dates Condition S tatus W/U Status Risk SNOMED Code Notes Problem Supervision of other normal Z34.80 Ac tive confirm [id number] Problem ADHD F90.9 Active confirmed [id number] ALLERGIES No Known Allergies ENCOUNTERS from 1992 to 2021-01-23 Encounter Location Date Provider Diagnosis [facility] [address] [place] [address] [place] [address] Dec, Charity Mays IMMUNIZATIONS Vaccine Route Administration [...] Information RESULTS No Results REASON FOR VISIT Re:RE:32 week Apt. MEDICAL (GENERAL) HISTORY Type Description [...] Details Provider Name:Charity Mays, 2021-01-24 11:00:00 AM, [address] [place] [address]785[address]155, [place], [address], Provider Name:Charity Mays, 2021-02-06 03:00:00 PM, [address] [place] [address], [place], [address], Insurance Providers Payer Name Payer Address Payer Phone Insured Name Patient Relati onship to Insured Coverage Start Date Coverage End Date [address] [phone] DAMIEN PEREZ self
--- OUTSIDE RECORDS SUMMARY | 2021-03-17 03:53 | CCD ---
Author Author [facility] Organization [facility] Address Unknown Phone Unavailable Care Team Providers Care Pickle Cutter Name Role Phone Charity Mays Unavailable PROBLEMS Type Condition ICD9-CM Code [id number] Code Onset Dates Condition S tatus W/U Status Risk SNOMED Code Notes Problem Supervision of other normal Z34.80 Ac tive confirm [id number] Problem ADHD F90.9 Active confirmed 071667942 ALLERGIES No Known Allergies ENCOUNTERS from 1992 to 2021-01-27 Encounter Location Date Provider Diagnosis [facility] [address] [place] [address] [place] [address] 12 Dec, 2020 Charity Mays Mental disorder affe cting in third trimester O99.343 ; Other specified related conditions, third trimester O26.893 ; Encounter for prophylactic administration of RhoGAM Z29.13 ; 30 weeks gestation of Z3A.30 ; Attention-deficit hyperactivity disorder, unspecified type F90.9 ; Heartburn R12 and Encounter for immunization Z23 IMMUNIZATIONS Vaccine Route Administration Date Status TDAP [...] FOR REFERRAL No Information VITAL SIGNS Weight 182 lbs Dec, Weight-kg 82.55 kg Dec, Height 69 in Dec, BMI 26.877 kg/m2 Dec, Blood pressure systolic 110 mm Hg Dec, Blood pressure diastolic 70 mm Hg Dec, MEDICATIONS Medication SIG (Take, [...] BID for 30 days Dec, Active PROCEDURES from 1992 to 2021-01-27 Procedure Date Ordered Result Body Site Imm: Boostrix 0.5mL IM TDAP 2021-01-09 N/A Inj: RhoGAM 300mcg/1.5mL IM Rho D Immune Globulin Human N/A RESULTS No Results REASON FOR VISIT 3 wk pn MEDICAL (GENERAL) HISTORY Type Description [...] in third trimester (ICD-10 - O99.343) Dec, Other specified re lated conditions, third trimester (ICD- 10 - O26.893) Dec, Encounter for prophylactic a dministration of RhoGAM (ICD-10 - Z29.13) Dec, 30 weeks gestation of (ICD-10 - Z3A.30 ) Dec, Attention-deficit hyperactiv ity disorder, unspecified type (ICD-10 - F90.9) Dec, Heartburn (ICD-10 - R12) Dec, Encounter for immunization (ICD-10 - Z23) PLAN OF TREATMENT Next Appt Details 2 Weeks Reason:PN Provider Name:Charity Mays, 2021-02-06 03:00:00 PM, [address] [place] [address], , [place], [address], Provider Name:Charity Mays, 2021-02-20 11:00:00 AM, [address] [place] [address], [address] [place] [address], [place], [place], [address] [place] [address], [address] [place] [address] Provider Name:Charity Mays, 2021-02-27 10:40:00 AM, [address] [place] [address], [address] [place] [address], [place], [place], [address] [place] [address], Provider Name:Charity Mays, 2021-03-06 10:40:00 AM, [address] [place] [address], [address] [place] [address], [place], [place], [address] [place] [address], Provider Name:Charity Mays, 2021-03-13 10:40:00 AM, [address] [place] [address], [address] [place] [address], [place], [address] [place] [address], Follow Up:2 WeeksPN Insurance Providers Payer Name Payer Address Payer Phone Insured Name Patient Relati onship to Insured Coverage Start Date Coverage End Date [address] [phone] DAMIEN PEREZ self
--- OUTSIDE RECORDS SUMMARY | 2021-03-17 03:53 | CCD ---
Author Author [facility] Organization [facility] Address Unknown Phone Unavailable Care Team Providers Care Diesel Mechanic Apprentice Name Role Phone Charity Mays Unavailable PROBLEMS Type Condition ICD9-CM Code [id number] Code Onset Dates Condition S tatus W/U Status Risk SNOMED Code Notes Problem Supervision of other normal Z34.80 Ac tive confirm [id number] Problem ADHD F90.9 Active confirmed [id number] ALLERGIES No Known Allergies ENCOUNTERS from 1992 to 2021-03-12 Encounter Location Date Provider Diagnosis [facility] [address] [place] [address] [place] [address] Jan, Charity Mays Mental disorder affe cting in third trimester O99.343 ; Attention-deficit hyperactivity disorder, unspecified type F90.9 and 37 weeks gestation of Z3A.37 IMMUNIZATIONS Vaccine Route Administration Date Status TDAP [...] FOR REFERRAL No Information VITAL SIGNS Weight 198 lbs Jan, Weight-kg 89.81 kg Jan, Height 69 in Jan, BMI 29.239 kg/m2 Jan, Blood pressure systolic 102 mm Hg Jan, Blood pressure diastolic 70 [...] Information RESULTS No Results REASON FOR VISIT 1 WK PN MEDICAL (GENERAL) HISTORY Type Description Date Medical History ADHD Surgical History Right ovary removed Surgical History Breast augmentation implants Hospitalization History childbirth Hospitalization History surgical related Goals Section No Information Health Concerns No Information MEDICAL EQUIPMENT No Information MENTAL STATUS No Information FUNCTIONAL STATUS No Information ASSESSMENTS Encounter Date Diagnosis Assessment Notes Treatment Notes Treatm ent Clinical Notes Jan, Attention-deficit hyperactiv ity disorder, unspecified type (ICD-10 - F90.9) Jan, Mental disorder affecting pr egnancy in third trimester (ICD-10 - O99.343) Jan, 37 weeks gestation of (ICD-10 - Z3A.37 ) PLAN OF TREATMENT Medication Medication Name Sig Start Date Stop Date Adderall 10 MG 1 tablet Orally Twice a day for 30 days Feb, Next Appt Details 1 Week Reason:PN Provider Name:Charity Mays, 2021-03-13 10:40:00 AM, [address] [facility], , [place], [address], Follow Up:1 WeekPN Insurance Providers Payer Name Payer Address Payer Phone Insured Name Patient Relati onship to Insured Coverage Start Date Coverage End Date [place] [phone] DAMIEN PEREZ
--- OUTSIDE RECORDS SUMMARY | 2021-03-17 03:53 | CCD ---
Author Author [facility] Organization [facility] Address Unknown Phone Unavailable Care Team Providers Care Geochemistry Teacher Name Role Phone Charity Mays Unavailable PROBLEMS Type Condition ICD9-CM Code WXA80-IH Code Onset Dates Condition S tatus W/U Status Risk SNOMED Code Notes Problem Supervision of other normal Z34.80 Ac tive confirm 010753963 Problem ADHD F90.9 Active confirmed 140248499 ALLERGIES No Known Allergies ENCOUNTERS from 1992 to 2021-02-24 Encounter Location Date Provider Diagnosis [facility] [address] [place] [address] [place] [address] Jan, Charity Davon Other diseases of th e blood and blood- forming organs and certain disorders involving the immune mechanism complicating , third trimester O99.113 ; Other diseases of the blood and blood-formi ng organs and certain disorders involving the immune mechanism complicating , unspecified trimester O99.119 ; uterine contractions in third trimester, antepartum O47.03 ; 34 weeks gestation of Z3A.34 and Thrombocytopenia, unspecified D69.6 IMMUNIZATIONS Vaccine Route Administration Date Status TDAP [...] FOR REFERRAL No Information VITAL SIGNS Weight 190.4 lbs Jan, Weight-kg 86.36 kg Jan, Height 69 in Jan, BMI 28.117 kg/m2 Jan, Blood pressure systolic 110 mm Hg Jan, Blood pressure diastolic 70 mm Hg Jan, MEDICATIONS Medication SIG (Take, Route, Frequency, Duration) Notes Start Da te End Date Status Omeprazole 20 MG 1 capsule 30 minutes before morning meal Orally Once a day for 30 day(s) Dec, Active Adderall 10 MG 1 tablet Orally BID for 30 days Dec, Active Dextroamphetamine Sulfate 10 MG 1 tablet in the morning Orally Twic e a day Not-Taking Vitamin 27-0.8 MG 1 tablet Orally Once a day Active Reglan 5 MG 1 tablet before meals Orally Twice a day for 30 day(s) Jul, Active PROCEDURES from 1992 to 2021-02-24 Procedure Date Ordered Result Body Site non-stress test 2021-02-06 N/A RESULTS No Results REASON FOR VISIT 2WKPN MEDICAL (GENERAL) HISTORY Type Description Date Medical History ADHD Surgical History Right ovary removed Surgical History Breast augmentation implants Hospitalization History childbirth Hospitalization History surgical related Goals Section No Information Health Concerns No Information MEDICAL EQUIPMENT No Information MENTAL STATUS No Information FUNCTIONAL STATUS No Information ASSESSMENTS Encounter Date Diagnosis Assessment Notes Treatment Notes Treatm ent Clinical Notes Jan, Other diseases of the blood and blood-forming organs and certain disorders involving the immune mechanism complicating , third trimester (ICD-10 - O99.113) Jan, Other diseases of the blood and blood-forming organs and certain disorders involving the immune mechanism complicating , unspecified trimester (ICD-10 - O99.119) Jan, uterine contractions in third trimester, antepartum (ICD-10 - O47.03) Jan, 34 weeks gestation of (ICD-10 - Z3A.34 ) Jan, Thrombocytopenia, unspecified (ICD-10 - D69.6) PLAN OF TREATMENT Treatment Notes Test Name Order Date CBC - Complete Blood Count 2021-02-06 Next Appt Details Provider Name:Charity Mays, 2021-02-27 10:40:00 AM, [address] [place] [address], , [place], [address], Provider Name:Charity Mays, 2021-03-06 10:40:00 AM, [address] [place] [address], , [place], [address], Provider Name:Charity Mays, 2021-03-13 10:40:00 AM, [address] [place] [address], , [place], [address], Insurance Providers Payer Name Payer Address Payer Phone Insured Name Patient Relati onship to Insured Coverage Start Date Coverage End Date [address] [phone] DAMIEN PEREZ self
--- OUTSIDE RECORDS SUMMARY | 2021-03-17 03:53 | CCD ---
Author Author [facility] Organization [facility] [employer] [facility] Address Unknown Phone Unavailable Care Team Providers Care Chiller Hand Name Role Phone Charity Mays Unavailable PROBLEMS Type Condition ICD9-CM Code EXE81-TK Code Onset Dates Condition S tatus W/U Status Risk SNOMED Code Notes Problem Supervision of other normal Z34.80 Ac tive confirm [id number] Problem ADHD F90.9 Active confirmed [id number] ALLERGIES No Known Allergies ENCOUNTERS from 1992 to 2021-03-11 Encounter Location Date Provider Diagnosis [facility] [address] [place] [address] [place] [address] Feb, Charity Mays IMMUNIZATIONS Vaccine Route Administration Date [...] Information RESULTS No Results REASON FOR VISIT appt thurs MEDICAL (GENERAL) HISTORY Type Description Date Medical [...] for 30 days Feb, Next Appt Details Provider Name:Charity Mays, 2021-03-13 10:40:00 AM, [address] [facility], , [place], [address], Insurance Providers Payer Name Payer Address Payer Phone Insured Name Patient Relati onship to Insured Coverage Start Date Coverage End Date [place] [phone] DAMIEN PEREZ self
--- OUTSIDE RECORDS SUMMARY | 2021-03-17 03:54 | CCD ---
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 Name Role Phone NO, PCP Unavailable Unavailable LETTIERE, A ENMANUEL PA Unavailable Unavailable LETTIERE, A ENMANUEL PA Unavailable Unavailable LETTIERE, A ENMANUEL PA Unavailable Unavailable LETTIERE, A ENMANUEL PA Unavailable Unavailable LETTIERE, A ENMANUEL PA Unavailable Unavailable LETTIERE, A ENMANUEL PA Unavailable Unavailable LETTIERE, A ENMANUEL PA Unavailable Unavailable LETTIERE, A ENMANUEL PA Unavailable Unavailable LETTIERE, A ENMANUEL PA Unavailable Unavailable LETTIERE, A ENMANUEL PA Unavailable Unavailable LETTIERE, A ENMANUEL PA Unavailable Unavailable LETTIERE, A ENMANUEL PA Unavailable Unavailable LETTIERE, A ENMANUEL PA Unavailable Unavailable LETTIERE, A ENMANUEL PA Unavailable Unavailable LETTIERE, A ENMANUEL PA Unavailable Unavailable LETTIERE, A ENMANUEL PA Unavailable Unavailable LETTIERE, A ENMANUEL PA Unavailable Unavailable LETTIERE, A ENMANUEL PA Unavailable Unavailable LETTIERE, A ENMANUEL PA Unavailable Unavailable LETTIERE, A ENMANUEL PA Unavailable Unavailable LETTIERE, A ENMANUEL PA Unavailable Unavailable LETTIERE, A ENMANUEL PA Unavailable Unavailable LETTIERE, A ENMANUEL PA Unavailable Unavailable LETTIERE, A ENMANUEL PA Unavailable Unavailable LETTIERE, A ENMANUEL PA Unavailable Unavailable LETTIERE, A ENMANUEL PA Unavailable Unavailable LETTIERE, A ENMANUEL PA Unavailable Unavailable LETTIERE, A ENMANUEL PA Unavailable Unavailable LETTIERE, A ENMANUEL PA Unavailable Unavailable LETTIERE, A ENMANUEL PA Unavailable Unavailable LETTIERE, A ENMANUEL PA Unavailable Unavailable LAROCK, Carter BLANKENSHIP NP Unavailable Unavailable LAROCK, Carter BLANKENSHIP NP Unavailable Unavailable LAROCKCarter NP Unavailable Unavailable LAROCK, J KRZYSZTOF SUPERVISOR SUNGLASSES Unavailable Unavailable LAROCK, J KRZYSZTOF SUPERVISOR SUNGLASSES Unavailable Unavailable LAROCK, J KRZYSZTOF SUPERVISOR SUNGLASSES Unavailable Unavailable LAROCK, J KRZYSZTOF SUPERVISOR SUNGLASSES Unavailable Unavailable LAROCK, J KRZYSZTOF SUPERVISOR SUNGLASSES Unavailable Unavailable LAROCK, J KRZYSZTOF SUPERVISOR SUNGLASSES Unavailable Unavailable LAROCK, J KRZYSZTOF SUPERVISOR SUNGLASSES Unavailable Unavailable LAROCK, J KRZYSZTOF SUPERVISOR SUNGLASSES Unavailable Unavailable LAROCK, J KRZYSZTOF SUPERVISOR SUNGLASSES Unavailable Unavailable LAROCK, J KRZYSZTOF SUPERVISOR SUNGLASSES Unavailable Unavailable LAROCK, J KRZYSZTOF SUPERVISOR SUNGLASSES Unavailable Unavailable LAROCK, J KRZYSZTOF SUPERVISOR SUNGLASSES Unavailable Unavailable LAROCK, J KRZYSZTOF SUPERVISOR SUNGLASSES Unavailable Unavailable LAROCK, J KRZYSZTOF SUPERVISOR SUNGLASSES Unavailable Unavailable LAROCK, J KRZYSZTOF SUPERVISOR SUNGLASSES Unavailable Unavailable LAROCK, J KRZYSZTOF SUPERVISOR SUNGLASSES Unavailable Unavailable LAROCK, J KRZYSZTOF SUPERVISOR SUNGLASSES Unavailable Unavailable LAROCK, J KRZYSZTOF SUPERVISOR SUNGLASSES Unavailable Unavailable LAROCK, J KRZYSZTOF SUPERVISOR SUNGLASSES Unavailable Unavailable Jung, Jhonathan WYNN Unavailable Unavailable Jung, Jhonathan WYNN Unavailable Unavailable Evaristo, Jhonathan WYNN Unavailable Unavailable Jung, Jhonathan WYNN Unavailable Unavailable Jung, Jhonathan WYNN Unavailable Unavailable Jung, Jhonathan WYNN Unavailable Unavailable PETRA-REY, STERLING DO Unavailable Unavailable PETRA-REY, STERLING DO Unavailable Unavailable PETRA-REY, STERLING DO Unavailable Unavailable PETRA-REY, STERLING DO Unavailable Unavailable PETRA-REY, STERLING DO Unavailable Unavailable PETRA-REY, STERLING DO Unavailable Unavailable PETRA-REY, STERLING DO Unavailable Unavailable PETRA-REY, STERLING DO Unavailable Unavailable PETRA-REY, STERLING DO Unavailable Unavailable PETRA-REY, STERLING DO Unavailable Unavailable PETRA-REY, STERLING DO Unavailable Unavailable PETRA-REY, STERLING DO Unavailable Unavailable PETRA-REY, STERLING DO Unavailable Unavailable PETRA-REY, STERLING DO Unavailable Unavailable PETRA-REY, STERLING DO Unavailable Unavailable PETRA-REY, STERLING DO Unavailable Unavailable PETRA-REY, STERLING DO Unavailable Unavailable PETRA-REY, STERLING DO Unavailable Unavailable PETRA-REY, STERLING DO Unavailable Unavailable PETRA-REY, STERLING DO Unavailable Unavailable PETRA-REY, STERLING DO Unavailable Unavailable PETRA-REY, STERLING DO Unavailable Unavailable PETRA-REY, STERLING DO Unavailable Unavailable PETRA-REY, STERLING DO Unavailable Unavailable PETRA-REY, STERLING DO Unavailable Unavailable PETRA-REY, STERLING DO Unavailable Unavailable PETRA-REY, STERLING DO Unavailable Unavailable PETRA-REY, STERLING DO Unavailable Unavailable PETRA-REY, STERLING DO Unavailable Unavailable PETRA-REY, STERLING DO Unavailable Unavailable PETRA-REY, STERLING DO Unavailable Unavailable PETRA-REY, STERLING DO Unavailable Unavailable PETRA-REY, STERLING DO Unavailable Unavailable PETRA-REY, STERLING DO Unavailable Unavailable PETRA-REY, STERLING DO Unavailable Unavailable PETRA-REY, STERLING DO Unavailable Unavailable PETRA-REY, STERLING DO Unavailable Unavailable PETRA-REY, STERLING DO Unavailable Unavailable PETRA-REY, STERLING DO Unavailable Unavailable PETRA-REY, STERLING DO Unavailable Unavailable PETRA-REY, STERLING DO Unavailable Unavailable PETRA-REY, STERLING DO Unavailable Unavailable PETRA-REY, STERLING DO Unavailable Unavailable PETRA-REY, STERLING DO Unavailable Unavailable PETRA-REY, STERLING DO Unavailable Unavailable PETRA-REY, STERLING DO Unavailable Unavailable PETRA-REY, STERLING DO Unavailable Unavailable PETRA-REY, STERLING DO Unavailable Unavailable PETRA-REY, STERLING DO Unavailable Unavailable PETRA-REY, STERLING DO Unavailable Unavailable PETRA-REY, STERLING DO Unavailable Unavailable PETRA-REY, STERLING DO Unavailable Unavailable PETRA-REY, STERLING DO Unavailable Unavailable PETRA-REY, STERLING DO Unavailable Unavailable PETRA-REY, STERLING DO Unavailable Unavailable PETRA-REY, STERLING DO Unavailable Unavailable PETRA-REY, STERLING DO Unavailable Unavailable PETRA-REY, STERLING DO Unavailable Unavailable PETRA-REY, STERLING DO Unavailable Unavailable PETRA-REY, STERLING DO Unavailable Unavailable PETRA-REY, STERLING DO Unavailable Unavailable PETRA-REY, STERLING DO Unavailable Unavailable PETRA-REY, STERLING DO Unavailable Unavailable PETRA-REY, STERLING DO Unavailable Unavailable PETRA-REY, STERLING DO Unavailable Unavailable PETRA-REY, STERLING DO Unavailable Unavailable PETRA-REY, STERLING DO Unavailable Unavailable PETRA-REY, STERLING DO Unavailable Unavailable PETRA-REY, STERLING DO Unavailable Unavailable PETRA-REY, STERLING DO Unavailable Unavailable PETRA-REY, STERLING DO Unavailable Unavailable PETRA-REY, STERLING DO Unavailable Unavailable PETRA-REY, STERLING DO Unavailable Unavailable PETRA-REY, STERLING DO Unavailable Unavailable PETRA-REY, STERLING DO Unavailable Unavailable PETRA-REY, STERLING DO Unavailable Unavailable PETRA-REY, STERLING DO Unavailable Unavailable PETRA-REY, STERLING DO Unavailable Unavailable PETRA-REY, STERLING DO Unavailable Unavailable PETRA-REY, STERLING DO Unavailable Unavailable PETRA-REY, STERLING DO Unavailable Unavailable PETRA-REY, STERLING DO Unavailable Unavailable PETRA-REY, STERLING DO Unavailable Unavailable PETRA-REY, STERLING DO Unavailable Unavailable TURRIN, REYNALDO Unavailable Unavailable TURRIN, REYNALDO Unavailable Unavailable TURRIN, REYNALDO Unavailable Unavailable TURRIN, REYNALDO Unavailable Unavailable O'yolie, A Enmanuel PA Unavailable Unavailable O'yolie, A Enmanuel PA Unavailable Unavailable O'yolie, A Enmanuel PA Unavailable Unavailable O'yolie, A Enmanuel PA Unavailable Unavailable O'yolie, A Enmanuel PA Unavailable Unavailable O'yolie, A Enmanuel PA Unavailable Unavailable O'yolie, A Enmanuel PA Unavailable Unavailable O'yolie, A Enmanuel PA Unavailable Unavailable O'yolie, A Enmanuel PA Unavailable Unavailable O'yolie, A Enmanuel PA Unavailable Unavailable O'yolie, A Enmanuel PA Unavailable Unavailable O'yolie, A Enmanuel PA Unavailable Unavailable O'yolie, A Enmanuel PA Unavailable Unavailable O'yolie, A Enmanuel PA Unavailable Unavailable O'yolie, A Enmanuel PA Unavailable Unavailable O'yolie, A Enmanuel PA Unavailable Unavailable O'yolie, A Enmanuel PA Unavailable Unavailable O'yolie, A Enmanuel PA Unavailable Unavailable O'yolie, A Enmanuel PA Unavailable Unavailable O'yolie, A Enmanuel PA Unavailable Unavailable O'yolie, A Enmanuel PA Unavailable Unavailable O'yolie, A Enmanuel PA Unavailable Unavailable O'yolie, A Enmanuel PA Unavailable Unavailable O'yolie, A Enmanuel PA Unavailable Unavailable O'yolie, A Enmanuel PA Unavailable Unavailable O'yolie, A Enmanuel PA Unavailable Unavailable O'yolie, A Enmanuel PA Unavailable Unavailable O'yolie, A Enmanuel PA Unavailable Unavailable O'yolie, A Enmanuel PA Unavailable Unavailable O'yolie, A Enmanuel PA Unavailable Unavailable O'yolie, A Enmanuel PA Unavailable Unavailable O'yolie, A Enmanuel PA Unavailable Unavailable O'yolie, A Enmanuel PA Unavailable Unavailable Re-disclosure Warning The records that you are about to access may contain information from federally-assisted alcohol or drug abuse programs. If such information is present, then the following federally mandated warning applies: This information has been disclosed to you from records protected by federal confidentiality rules (42 CFR part 2). The federal rules prohibit you from making any further disclosure of this information unless further disclosure is expressly permitted by the written consent of the person to whom it pertains or as otherwise permitted by 42 CFR part 2. A general authorization for the release of medical or other information is NOT sufficient for this purpose. The Federal rules restrict any use of the information to criminally investigate or prosecute any alcohol or drug abuse patient.The records that you are about to access may contain highly sensitive health information, the redisclosure of which is protected by Article 27-F of the [facility] Public Health law. If you continue you may have access to information: Regarding HIV / AIDS; Provided by facilities licensed or operated by the [facility] Office of Mental Health; or Provided by the [facility] Office for People With Developmental Disabilities. If such information is present, then the following [facility] mandated warning applies: This information has been disclosed to you from confidential records which are protected by state law. State law prohibits you from making any further disclosure of this information without the specific written consent of the person to whom it pertains, or as otherwise permitted by law. Any unauthorized further disclosure in violation of state law may result in a fine or usp sentence or both. A general authorization for the release of medical or other information is NOT sufficient authorization for further disc losure. Family History Family Member Name Family Member Gender Family Member Status Date o f Status Description Data Source(s) Unknown Male Problem MEDENT ([facility]) Unknown Unknown Problem MEDENT ([facility], ) Encounters Encounter Providers Location Date Indications Data Source(s ) [place] [address] [facility] [address] 03/11/2021 12:00:00 AM EDT eCW1 ([facility]) Outpatient Attender: KRZYSZTOF READ NP 07/2020 11:48:29 AM EDT - 03/02/2021 12:33:17 PM EDT [facility] ([facility] ) ( ESTOB) [facility] [address] [place] [address] 02/27/2021 12:00:00 AM EDT eCW1 ([facility]) (WC ESTOB) [facility] [address] [place] [address] 02/20/2021 12:00:00 AM EDT eCW1 ([facility]) (WC ESTOB) [facility] [address] [place] [address] 02/06/2021 12:00:00 AM EDT eCW1 ([facility]) (WC ESTOB) [facility] [address] [place] [address] 01/24/2021 12:00:00 AM EDT eCW1 ([facility]) Unknown [address] [facility] [address] 01/22/2021 12:00:00 AM EDT eCW1 ([facility]) Unknown [address] [facility] [address] 01/21/2021 12:00:00 AM EDT eCW1 ([facility]) ( ESTOB) [facility] [address] [place] [address] 01/09/2021 12:00:00 AM EDT eCW1 ([facility]) (WC ESTOB) [facility] [address] [place] [address] 12/18/2020 12:00:00 AM EDT eCW1 ([facility]) Unknown [address] [facility] [address] 12/12/2020 12:00:00 AM EDT eCW1 ([facility]) Unknown [address] [facility] [place] [address] 12/11/2020 12:00:00 AM EDT eCW1 ([facility]) [place] [address] [facility] [address] 12/09/2020 12:00:00 AM EDT eCW1 ([facility]) [place] [address] [facility] [address] 12/09/2020 12:00:00 AM EDT eCW1 ([facility]) [place] [address] [facility] [address] 11/13/2020 12:00:00 AM EDT eCW1 ([facility]) [place] [address] [facility] [address] 11/11/2020 12:00:00 AM EDT eCW1 ([facility]) Outpatient Attender: KRZYSZTOF READ NP 01/2021 11:07:41 AM EDT - 11/06/2020 12:24:00 PM EDT [facility] ([facility] ) [place] [address] [facility] [address] 11/06/2020 12:00:00 AM EDT eCW1 ([facility]) [place] [address] [facility] [address] 11/06/2020 12:00:00 AM EDT eCW1 ([facility]) [place] [address] [facility] [address] 11/06/2020 12:00:00 AM EDT eCW1 ([facility]) ( ESTOB) [facility] Est OB [address] [place] [address] 10/30/2020 12:00:00 AM EDT eCW1 ([facility]) ( ESTOB) [facility] Est OB [address] [place] [address] 10/11/2020 12:00:00 AM EDT eCW1 ([facility]) [place] [address] [facility] [address] 10/08/2020 12:00:00 AM EDT eCW1 ([facility]) [place] [address] [facility] [address] 10/08/2020 12:00:00 AM EDT eCW1 ([facility]) [place] [address] [facility] [address] 10/03/2020 12:00:00 AM EDT eCW1 ([facility]) [place] [address] [facility] [address] 09/24/2020 12:00:00 AM EDT eCW1 ([facility]) [place] [address] [facility] [address] 09/23/2020 12:00:00 AM EDT eCW1 ([facility]) ( ESTOB) [facility] Est [facility] [address] [place] [address] 09/19/2020 12:00:00 AM EDT eCW1 ([facility]) ( ESTOB) [facility] [address] [place] [address] 09/11/2020 12:00:00 AM EDT eCW1 ([facility]) [place] [address] [facility] [address] 09/10/2020 12:00:00 AM EDT eCW1 ([facility]) Emergency Attender: Jhonathan Jung MDConsultant: PCP NO 09/08/2020 05:09:00 PM EDT - 09/08/2020 07:30:00 PM EDT [facility] Patient discharged. Emergency Attender: REYNALDO GUEVARAConsultant: PCP NO 07/29/2020 08:08:00 PM EST - 07/30/2020 12:07:00 AM EST [facility] Patient discharged. Outpatient Attender: Enmanuel ALMARAZ [facility] 07/12/2020 08:30:00 AM EST MEDENT ([facility]) Outpatient Attender: Enmanuel ALMARAZ [facility] 04/18/2020 09:30:00 AM EST MEDENT ([facility]) Outpatient Attender: ENMANUEL brenner 04/02/2020 11:00:00 AM EST MEDENT ([facility]) (WC 20ESGYN) WCenter 20 Min Est [employer] [address] [place] [address] 03/05/2020 12:00:00 AM EDT eCW1 ([facility]) Outpatient Attender: Enmanuel ALMARAZ [facility] 02/13/2020 09:30:00 AM EDT MEDENT ([facility]) Outpatient Attender: STERLING LEGGETT DO [facility] 01/22/2020 01:10:00 PM EDT MEDENT ([facility]) Immunizations Vaccine Date Status Description Data Source(s) 01/09/2021 02:20:00 PM EDT completed e CW1 ([facility]) Tdap 01/09/2021 02:20:00 PM EDT completed e CW1 ([facility]) 01/09/2021 02:20:00 PM EDT completed e CW1 ([facility]) Tdap 01/09/2021 02:20:00 PM EDT completed e CW1 ([facility]) 01/09/2021 02:20:00 PM EDT completed e CW1 ([facility]) Tdap 01/09/2021 02:20:00 PM EDT completed e CW1 ([facility]) 01/09/2021 02:20:00 PM EDT completed e CW1 ([facility]) Tdap 01/09/2021 02:20:00 PM EDT completed e CW1 ([facility]) 01/09/2021 02:20:00 PM EDT completed e CW1 ([facility]) Tdap 01/09/2021 02:20:00 PM EDT completed e CW1 ([facility]) 01/09/2021 02:20:00 PM EDT completed e CW1 ([facility]) Tdap 01/09/2021 02:20:00 PM EDT completed e CW1 ([facility]) 01/09/2021 02:20:00 PM EDT completed e CW1 ([facility]) Tdap 01/09/2021 02:20:00 PM EDT completed e CW1 ([facility]) 01/09/2021 02:20:00 PM EDT completed e CW1 ([facility]) Tdap 01/09/2021 02:20:00 PM EDT completed e CW1 ([facility]) 01/09/2021 02:20:00 PM EDT completed e CW1 ([facility]) Tdap 01/09/2021 02:20:00 PM EDT completed e CW1 ([facility]) Medications Medication Brand Name Start Date Product Form Dose Route Admi nistrative Instructions Pharmacy Instructions Status Indications Reaction Description Data Source(s) Amphetamine aspartate 2.5 MG / Amphetami ne Sulfate 2.5 MG / Dextroamphetamine saccharate 2.5 MG / Dextroamphetamine Sulfate 2.5 MG Oral Tablet [Adderall] Adderall 10 MG Adderall 10 MG 03/06/2021 12:00:00 AM EDT 1.0 {tablet} active Adderall 10 MG eCW1 ([facility]) Amphetamine aspartate 2.5 MG / Amphetami ne Sulfate 2.5 MG / Dextroamphetamine saccharate 2.5 MG / Dextroamphetamine Sulfate 2.5 MG Oral Tablet [Adderall] Adderall 10 MG Adderall 10 MG 03/06/2021 12:00:00 AM EDT 1.0 {tablet} active Adderall 10 MG eCW1 ([facility]) Amphetamine aspartate 2.5 MG / Amphetami ne Sulfate 2.5 MG / Dextroamphetamine saccharate 2.5 MG / Dextroamphetamine Sulfate 2.5 MG Oral Tablet [Adderall] Adderall 10 MG Adderall 10 MG 03/06/2021 12:00:00 AM EDT 1.0 {tablet} active Adderall 10 MG eCW1 ([facility]) Omeprazole 20 MG Delayed Release Oral Capsule Omeprazole 20 MG 01/09/2021 12:00:00 AM EDT active Omeprazo le 20 MG eCW1 ([facility]) Amphetamine aspartate 2.5 MG / Amphetami ne Sulfate 2.5 MG / Dextroamphetamine saccharate 2.5 MG / Dextroamphetamine Sulfate 2.5 MG Oral Tablet [Adderall] Adderall 10 MG Adderall 10 MG 01/09/2021 12:00:00 AM EDT 1.0 {tablet} active Adderall 10 MG eCW1 ([facility]) Omeprazole 20 MG Delayed Release Oral Capsule Omeprazole 20 MG 01/09/2021 12:00:00 AM EDT active Omeprazo le 20 MG eCW1 ([facility]) Omeprazole 20 MG Delayed Release Oral Capsule Omeprazole 20 MG 01/09/2021 12:00:00 AM EDT active Omeprazo le 20 MG eCW1 ([facility]) Omeprazole 20 MG Delayed Release Oral Capsule Omeprazole 20 MG 01/09/2021 12:00:00 AM EDT active Omeprazo le 20 MG eCW1 ([facility]) Omeprazole 20 MG Delayed Release Oral Capsule Omeprazole 20 MG 01/09/2021 12:00:00 AM EDT active Omeprazo le 20 MG eCW1 ([facility]) Omeprazole 20 MG Delayed Release Oral Capsule Omeprazole 20 MG 01/09/2021 12:00:00 AM EDT active Omeprazo le 20 MG eCW1 ([facility]) Amphetamine aspartate 2.5 MG / Amphetami ne Sulfate 2.5 MG / Dextroamphetamine saccharate 2.5 MG / Dextroamphetamine Sulfate 2.5 MG Oral Tablet [Adderall] Adderall 10 MG Adderall 10 MG 01/09/2021 12:00:00 AM EDT 1.0 {tablet} active Adderall 10 MG eCW1 ([facility]) Amphetamine aspartate 2.5 MG / Amphetami ne Sulfate 2.5 MG / Dextroamphetamine saccharate 2.5 MG / Dextroamphetamine Sulfate 2.5 MG Oral Tablet [Adderall] Adderall 10 MG Adderall 10 MG 01/09/2021 12:00:00 AM EDT 1.0 {tablet} active Adderall 10 MG eCW1 ([facility]) Omeprazole 20 MG Delayed Release Oral Capsule Omeprazole 20 MG 01/09/2021 12:00:00 AM EDT active Omeprazo le 20 MG eCW1 ([facility]) Omeprazole 20 MG Delayed Release Oral Capsule Omeprazole 20 MG 01/09/2021 12:00:00 AM EDT active Omeprazo le 20 MG eCW1 ([facility]) Amphetamine aspartate 2.5 MG / Amphetami ne Sulfate 2.5 MG / Dextroamphetamine saccharate 2.5 MG / Dextroamphetamine Sulfate 2.5 MG Oral Tablet [Adderall] Adderall 10 MG Adderall 10 MG 01/09/2021 12:00:00 AM EDT 1.0 {tablet} active Adderall 10 MG eCW1 ([facility]) Omeprazole 20 MG Delayed Release Oral Capsule Omeprazole 20 MG 01/09/2021 12:00:00 AM EDT active Omeprazo le 20 MG eCW1 ([facility]) Amphetamine aspartate 2.5 MG / Amphetami ne Sulfate 2.5 MG / Dextroamphetamine saccharate 2.5 MG / Dextroamphetamine Sulfate 2.5 MG Oral Tablet [Adderall] Adderall 10 MG Adderall 10 MG 01/09/2021 12:00:00 AM EDT 1.0 {tablet} active Adderall 10 MG eCW1 ([facility]) Amphetamine aspartate 2.5 MG / Amphetami ne Sulfate 2.5 MG / Dextroamphetamine saccharate 2.5 MG / Dextroamphetamine Sulfate 2.5 MG Oral Tablet [Adderall] Adderall 10 MG Adderall 10 MG 01/09/2021 12:00:00 AM EDT 1.0 {tablet} active Adderall 10 MG eCW1 ([facility]) Amphetamine aspartate 2.5 MG / Amphetami ne Sulfate 2.5 MG / Dextroamphetamine saccharate 2.5 MG / Dextroamphetamine Sulfate 2.5 MG Oral Tablet [Adderall] Adderall 10 MG Adderall 10 MG 12/13/2020 12:00:00 AM EDT 1.0 {tablet} active Adderall 10 MG eCW1 ([facility]) Amphetamine aspartate 2.5 MG / Amphetami ne Sulfate 2.5 MG / Dextroamphetamine saccharate 2.5 MG / Dextroamphetamine Sulfate 2.5 MG Oral Tablet [Adderall] Adderall 10 MG Adderall 10 MG 12/13/2020 12:00:00 AM EDT 1.0 {tablet} active Adderall 10 MG eCW1 ([facility]) Amphetamine aspartate 2.5 MG / Amphetami ne Sulfate 2.5 MG / Dextroamphetamine saccharate 2.5 MG / Dextroamphetamine Sulfate 2.5 MG Oral Tablet [Adderall] Adderall 10 MG Adderall 10 MG 12/10/2020 12:00:00 AM EDT 1.0 {tablet} active Adderall 10 MG eCW1 ([facility]) Amphetamine aspartate 2.5 MG / Amphetami ne Sulfate 2.5 MG / Dextroamphetamine saccharate 2.5 MG / Dextroamphetamine Sulfate 2.5 MG Oral Tablet [Adderall] Adderall 10 MG Adderall 10 MG 12/10/2020 12:00:00 AM EDT 1.0 {tablet} active Adderall 10 MG eCW1 ([facility]) Amphetamine aspartate 2.5 MG / Amphetami ne Sulfate 2.5 MG / Dextroamphetamine saccharate 2.5 MG / Dextroamphetamine Sulfate 2.5 MG Oral Tablet [Adderall] Adderall 10 MG Adderall 10 MG 11/12/2020 12:00:00 AM EDT 1.0 {tablet} active Adderall 10 MG eCW1 ([facility]) Amphetamine aspartate 2.5 MG / Amphetami ne Sulfate 2.5 MG / Dextroamphetamine saccharate 2.5 MG / Dextroamphetamine Sulfate 2.5 MG Oral Tablet [Adderall] Adderall 10 MG Adderall 10 MG 11/12/2020 12:00:00 AM EDT 1.0 {tablet} active Adderall 10 MG eCW1 ([facility]) Amphetamine aspartate 2.5 MG / Amphetami ne Sulfate 2.5 MG / Dextroamphetamine saccharate 2.5 MG / Dextroamphetamine Sulfate 2.5 MG Oral Tablet [Adderall] Adderall 10 MG Adderall 10 MG 11/12/2020 12:00:00 AM EDT 1.0 {tablet} active Adderall 10 MG eCW1 ([facility]) Amphetamine aspartate 2.5 MG / Amphetami ne Sulfate 2.5 MG / Dextroamphetamine saccharate 2.5 MG / Dextroamphetamine Sulfate 2.5 MG Oral Tablet [Adderall] Adderall 10 MG Adderall 10 MG 11/12/2020 12:00:00 AM EDT 1.0 {tablet} active Adderall 10 MG eCW1 ([facility]) Amphetamine aspartate 2.5 MG / Amphetami ne Sulfate 2.5 MG / Dextroamphetamine saccharate 2.5 MG / Dextroamphetamine Sulfate 2.5 MG Oral Tablet [Adderall] Adderall 10 MG Adderall 10 MG 10/09/2020 12:00:00 AM EDT 1.0 {tablet} active Adderall 10 MG eCW1 ([facility]) Amphetamine aspartate 2.5 MG / Amphetami ne Sulfate 2.5 MG / Dextroamphetamine saccharate 2.5 MG / Dextroamphetamine Sulfate 2.5 MG Oral Tablet [Adderall] Adderall 10 MG Adderall 10 MG 10/09/2020 12:00:00 AM EDT 1.0 {tablet} active Adderall 10 MG eCW1 ([facility]) Amphetamine aspartate 2.5 MG / Amphetami ne Sulfate 2.5 MG / Dextroamphetamine saccharate 2.5 MG / Dextroamphetamine Sulfate 2.5 MG Oral Tablet [Adderall] Adderall 10 MG Adderall 10 MG 10/09/2020 12:00:00 AM EDT 1.0 {tablet} active Adderall 10 MG eCW1 ([facility]) Amphetamine aspartate 2.5 MG / Amphetami ne Sulfate 2.5 MG / Dextroamphetamine saccharate 2.5 MG / Dextroamphetamine Sulfate 2.5 MG Oral Tablet [Adderall] Adderall 10 MG Adderall 10 MG 10/09/2020 12:00:00 AM EDT 1.0 {tablet} active Adderall 10 MG eCW1 ([facility]) Amphetamine aspartate 2.5 MG / Amphetami ne Sulfate 2.5 MG / Dextroamphetamine saccharate 2.5 MG / Dextroamphetamine Sulfate 2.5 MG Oral Tablet [Adderall] Adderall 10 MG Adderall 10 MG 10/09/2020 12:00:00 AM EDT 1.0 {tablet} active Adderall 10 MG eCW1 ([facility]) Amphetamine aspartate 2.5 MG / Amphetami ne Sulfate 2.5 MG / Dextroamphetamine saccharate 2.5 MG / Dextroamphetamine Sulfate 2.5 MG Oral Tablet [Adderall] Adderall 10 MG Adderall 10 MG 09/19/2020 12:00:00 AM EDT 1.0 {tablet} active Adderall 10 MG eCW1 ([facility]) Amphetamine aspartate 2.5 MG / Amphetami ne Sulfate 2.5 MG / Dextroamphetamine saccharate 2.5 MG / Dextroamphetamine Sulfate 2.5 MG Oral Tablet [Adderall] Adderall 10 MG Adderall 10 MG 09/19/2020 12:00:00 AM EDT 1.0 {tablet} active Adderall 10 MG eCW1 ([facility]) Amphetamine aspartate 2.5 MG / Amphetami ne Sulfate 2.5 MG / Dextroamphetamine saccharate 2.5 MG / Dextroamphetamine Sulfate 2.5 MG Oral Tablet [Adderall] Adderall 10 MG Adderall 10 MG 09/19/2020 12:00:00 AM EDT 1.0 {tablet} active Adderall 10 MG eCW1 ([facility]) Amphetamine aspartate 2.5 MG / Amphetami ne Sulfate 2.5 MG / Dextroamphetamine saccharate 2.5 MG / Dextroamphetamine Sulfate 2.5 MG Oral Tablet [Adderall] Adderall 10 MG Adderall 10 MG 09/19/2020 12:00:00 AM EDT 1.0 {tablet} active Adderall 10 MG eCW1 ([facility]) Metoclopramide 5 MG Oral Tablet [Reglan] Reglan 5 MG Reglan 5 MG 08/27/2020 12:00:00 AM EDT 1.0 {tablet_before_meals} active Reglan 5 MG eCW1 ([facility]) Metoclopramide 5 MG Oral Tablet [Reglan] Reglan 5 MG Reglan 5 MG 08/27/2020 12:00:00 AM EDT 1.0 {tablet_before_meals} active Reglan 5 MG eCW1 ([facility]) Metoclopramide 5 MG Oral Tablet [Reglan] Reglan 5 MG Reglan 5 MG 08/27/2020 12:00:00 AM EDT 1.0 {tablet_before_meals} active Reglan 5 MG eCW1 ([facility]) Metoclopramide 5 MG Oral Tablet [Reglan] Reglan 5 MG Reglan 5 MG 08/27/2020 12:00:00 AM EDT 1.0 {tablet_before_meals} active Reglan 5 MG eCW1 ([facility]) Metoclopramide 5 MG Oral Tablet [Reglan] Reglan 5 MG Reglan 5 MG 08/27/2020 12:00:00 AM EDT 1.0 {tablet_before_meals} active Reglan 5 MG eCW1 ([facility]) Metoclopramide 5 MG Oral Tablet [Reglan] Reglan 5 MG Reglan 5 MG 08/27/2020 12:00:00 AM EDT 1.0 {tablet_before_meals} active Reglan 5 MG eCW1 ([facility]) Metoclopramide 5 MG Oral Tablet [Reglan] Reglan 5 MG Reglan 5 MG 08/27/2020 12:00:00 AM EDT 1.0 {tablet_before_meals} active Reglan 5 MG eCW1 ([facility]) Metoclopramide 5 MG Oral Tablet [Reglan] Reglan 5 MG Reglan 5 MG 08/27/2020 12:00:00 AM EDT 1.0 {tablet_before_meals} active Reglan 5 MG eCW1 ([facility]) Metoclopramide 5 MG Oral Tablet [Reglan] Reglan 5 MG Reglan 5 MG 08/27/2020 12:00:00 AM EDT 1.0 {tablet_before_meals} active Reglan 5 MG eCW1 ([facility]) Metoclopramide 5 MG Oral Tablet [Reglan] Reglan 5 MG Reglan 5 MG 08/27/2020 12:00:00 AM EDT 1.0 {tablet_before_meals} active Reglan 5 MG eCW1 ([facility]) Metoclopramide 5 MG Oral Tablet [Reglan] Reglan 5 MG Reglan 5 MG 08/27/2020 12:00:00 AM EDT 1.0 {tablet_before_meals} active Reglan 5 MG eCW1 ([facility]) Metoclopramide 5 MG Oral Tablet [Reglan] Reglan 5 MG Reglan 5 MG 08/27/2020 12:00:00 AM EDT 1.0 {tablet_before_meals} active Reglan 5 MG eCW1 ([facility]) Metoclopramide 5 MG Oral Tablet [Reglan] Reglan 5 MG Reglan 5 MG 08/27/2020 12:00:00 AM EDT 1.0 {tablet_before_meals} active Reglan 5 MG eCW1 ([facility]) Metoclopramide 5 MG Oral Tablet [Reglan] Reglan 5 MG Reglan 5 MG 08/27/2020 12:00:00 AM EDT 1.0 {tablet_before_meals} active Reglan 5 MG eCW1 ([facility]) Metoclopramide 5 MG Oral Tablet [Reglan] Reglan 5 MG Reglan 5 MG 08/27/2020 12:00:00 AM EDT 1.0 {tablet_before_meals} active Reglan 5 MG eCW1 ([facility]) Metoclopramide 5 MG Oral Tablet [Reglan] Reglan 5 MG Reglan 5 MG 08/27/2020 12:00:00 AM EDT 1.0 {tablet_before_meals} active Reglan 5 MG eCW1 ([facility]) Metoclopramide 5 MG Oral Tablet [Reglan] Reglan 5 MG Reglan 5 MG 08/27/2020 12:00:00 AM EDT 1.0 {tablet_before_meals} active Reglan 5 MG eCW1 ([facility]) Metoclopramide 5 MG Oral Tablet [Reglan] Reglan 5 MG Reglan 5 MG 08/27/2020 12:00:00 AM EDT 1.0 {tablet_before_meals} active Reglan 5 MG eCW1 ([facility]) Metoclopramide 5 MG Oral Tablet [Reglan] Reglan 5 MG Reglan 5 MG 08/27/2020 12:00:00 AM EDT 1.0 {tablet_before_meals} active Reglan 5 MG eCW1 ([facility]) Metoclopramide 5 MG Oral Tablet [Reglan] Reglan 5 MG Reglan 5 MG 08/27/2020 12:00:00 AM EDT 1.0 {tablet_before_meals} active Reglan 5 MG eCW1 ([facility]) Metoclopramide 5 MG Oral Tablet [Reglan] Reglan 5 MG Reglan 5 MG 08/27/2020 12:00:00 AM EDT 1.0 {tablet_before_meals} active Reglan 5 MG eCW1 ([facility]) Metoclopramide 5 MG Oral Tablet [Reglan] Reglan 5 MG Reglan 5 MG 08/27/2020 12:00:00 AM EDT 1.0 {tablet_before_meals} active Reglan 5 MG eCW1 ([facility]) Metoclopramide 5 MG Oral Tablet [Reglan] Reglan 5 MG Reglan 5 MG 08/27/2020 12:00:00 AM EDT 1.0 {tablet_before_meals} active Reglan 5 MG eCW1 ([facility]) Metoclopramide 5 MG Oral Tablet [Reglan] Reglan 5 MG Reglan 5 MG 08/27/2020 12:00:00 AM EDT 1.0 {tablet_before_meals} active Reglan 5 MG eCW1 ([facility]) Metoclopramide 5 MG Oral Tablet [Reglan] Reglan 5 MG Reglan 5 MG 08/27/2020 12:00:00 AM EDT 1.0 {tablet_before_meals} active Reglan 5 MG eCW1 ([facility]) Metoclopramide 5 MG Oral Tablet [Reglan] Reglan 5 MG Reglan 5 MG 08/27/2020 12:00:00 AM EDT 1.0 {tablet_before_meals} active Reglan 5 MG eCW1 ([facility]) Metoclopramide 5 MG Oral Tablet [Reglan] Reglan 5 MG Reglan 5 MG 08/27/2020 12:00:00 AM EDT 1.0 {tablet_before_meals} active Reglan 5 MG eCW1 ([facility]) Metoclopramide 5 MG Oral Tablet [Reglan] Reglan 5 MG Reglan 5 MG 08/27/2020 12:00:00 AM EDT 1.0 {tablet_before_meals} active Reglan 5 MG eCW1 ([facility]) Omeprazole 40 MG Delayed Release Oral Capsule Omeprazole 07/12/2020 12:00:00 AM EST ORAL active MEDENT ([facility]) Methylphenidate Hydrochloride 10 MG Oral Tablet [Ritalin] Ri scout 07/12/2020 12:00:00 AM EST ORAL active M EDENT ([facility]) Sucralfate 1000 MG Oral Tablet Sucralfate 07/12/2020 12:00:00 AM EST ORAL active MEDENT ([facility]) Mydayis Mydayis 06/20/2020 12:00:00 AM EST ORAL active MEDENT ([facility]) Mydayis Mydayis 05/15/2020 12:00:00 AM EST ORAL complet ed MEDENT ([facility]) Amoxicillin 875 MG / Clavulanate 125 MG Oral Tablet Am oxicillin/Clavulanate Potassium 04/18/2020 12:00:00 AM EST ORAL completed MEDENT ([facility]) Mydayis Mydayis 04/18/2020 12:00:00 AM EST ORAL complet ed MEDENT ([facility]) Mydayis Mydayis 03/04/2020 12:00:00 AM EDT ORAL complet ed MEDENT ([facility]) Dextroamphetamine Sulfate 10 MG Oral Tablet Dextroamphetamin e Sulfate 02/13/2020 12:00:00 AM EDT ORAL completed MEDENT ([facility]) Injection Ketorolac Tromethamine Per 15 MG (Toradol) 01/22/2020 12:00:00 AM EDT completed MEDENT ([facility]) Medication administered onsite Prednisone 10 MG Oral Tablet Prednisone 01/22/2020 12:00:00 AM EDT completed MEDENT ([facility]) tizanidine 4 MG Oral Tablet Tizanidine HCL 01/22/2020 12:00:00 AM EDT ORAL active MEDENT ([facility]) lisdexamfetamine dimesylate 50 MG Oral Capsule [Vyvanse] Vyv anse 10/18/2019 12:00:00 AM EDT ORAL completed MEDENT ([facility]) Insurance Providers Payer name Policy type / Coverage type Policy ID Covered democrat ID Covered democrat's relationship to galvez Policy Galvez Plan Information [facility] [id number] SP [id number] [facility] Health Plan / [id number] Self [id number] RPR- Needs Payer Match [id number] Self [id number] [facility] Commercial [id number] Self [id number] [facility] Commercial [id number] Self [id number] [facility] AT [facility] Health Maintenance Organization ([facility]) 00 [id number] Self [id number] [facility] [id number] [facility] [id number] [facility] [id number] SP [id number] [facility] [id number] [facility] [id number] [facility] AT [facility] [id number] 18 [id number] [facility] AT [facility] Health Maintenance Organization (O) 00 [id number] Self [id number] Problems, Conditions, and Diagnoses Code Display Name Description Problem Type Effective Dates Data Source(s) Z3A13 13 weeks gestation of 13 weeks gestation of Diagnosis 09/08/2020 05:09:00 PM EDT [facility] O200 Threatened Threatened Diagnosis 0 09/08/2020 05:09:00 PM EDT [facility] O209 Hemorrhage in early , unspecifi ed Hemorrhage in early , unspecified Diagnosis 09/08/2020 05:09:00 PM EDT [facility] V97011 Acquired absence of ovaries, unilateral Acquired absence of ovaries, unilateral Diagnosis 07/29/2020 08:08:00 PM [facility] Z3A01 Less than 8 weeks gestation of Less than 8 weeks gestation of Diagnosis 07/29/2020 08:08:00 PM [facility] O3481 Maternal care for other abnormalities of pelvic organs, first trimester Maternal care for other abnormalities of pelvic organs, first trimester Diagnosis 07/29/2020 08:08:00 PM [facility] R1032 Left lower quadrant pain Left lower quadrant pain Diag nosis 07/29/2020 08:08:00 PM [facility] F90.9 [id number] ADHD Problem 09/19/2020 12:00:00 AM ED T eCW1 ([facility]) Z34.80 care Supervision of other normal P roblem 08/26/2020 12:00:00 AM EDT eCW1 ([facility]) [id number] Vitamin D deficiency Vitamin D deficiency Problem 04/18/2020 12:00:00 AM EST MEDENT ([facility]) Surgeries/Procedures Procedure Description Date Indications Data Source(s) NONSTRESS TEST 02/06/2021 12:00:00 AM EDT eCW1 ([facility]) Inj: RhoGAM 300mcg/1.5mL IM Rho D Immune Globulin Human 01/09/2021 12:00:00 AM EDT eCW1 ([facility]) TDAP VACCINE 7/> YR IM 01/09/2021 12:00:00 AM EDT eCW1 ([facility]) Results ID Date Data Source [id number] 03/02/2021 12:15:00 PM EDT [facility] Name Value Range Interpretation Code Description Data Meghna rce(s) Supporting Document(s) SARS-CoV-2 RNA Resp Ql ALLI+probe NOT DETECTED [facility] This lab was ordered by APRYL dubose and reported by APRYL Balderas. ID Date Data Source GROUP B STREP CULTURE 02/20/2021 12:00:00 AM EDT eCW1 ([facility]) Name Value Range Interpretation Code Description Data Meghna rce(s) Supporting Document(s) GROUP B STREP CULTURE eCW1 ([facility]) ID Date Data Source RHOGAM 12/19/2020 12:00:00 AM EDT eCW1 ([facility]) Name Value Range Interpretation Code Description Data Meghna rce(s) Supporting Document(s) TRANSFUSED PRODUCT: RHOGAM CO UNT: 1 RHOGAM eCW1 ([facility]) ID Date Data Source Glucose Challenge Test 1 Hour 12/19/2020 12:00:00 AM EDT eCW 1 ([facility]) Name Value Range Interpretation Code Description Data Meghna rce(s) Supporting Document(s) 87 LESS THAN 140 GLUCOSE CHALLENGE TEST 1 HOUR eCW1 ([facility]) ID Date Data Source CBC - Complete Blood Count 12/19/2020 12:00:00 AM EDT eCW1 ( [facility]) Name Value Range Interpretation Code Description Data Meghna rce(s) Supporting Document(s) 7.1 4.0-10.0 WHITE BLOOD COUNT eCW1 ([facility]) 11.7 12.0-15.5 HEMOGLOBIN eCW1 ([facility]) 3.67 4.00-5.40 RED BLOOD COUNT eCW1 ([facility]) 31.9 27.0-33.0 MEAN CORPUSCULAR HEMOGLOB IN eCW1 ([facility]) 97.3 80.0-96.0 MEAN CORPUSCULAR VOLUME e CW1 ([facility]) 35.7 36.0-47.0 HEMATOCRIT eCW1 ([facility]) 12.3 11.5-14.5 RED CELL DISTRIBUTION WID TH eCW1 ([facility]) 32.8 32.0-36.5 MEAN CORPUSCULAR HGB CONC eCW1 ([facility]) 132 150-450 PLATELET COUNT, AUTOMATED eCW1 ([facility]) ID Date Data Source Type and Screen (D Rh Antibody Screen) 12/19/2020 12:00:00 A M EDT eCW1 ([facility]) Name Value Range Interpretation Code Description Data Meghna rce(s) Supporting Document(s) NEGATIVE AB SCREEN (INDIRECT COOMB S)VIS eCW1 ([facility]) A NEGATIVE BLOOD TYPE eCW1 ([facility]) ID Date Data Source [id number] 11/14/2020 07:59:00 AM EDT [facility] Name Value Range Interpretation Code Description Data Meghna rce(s) Supporting Document(s) SARS-CoV-2 (COVID-19) RNA [Presence] in Respiratory specimen by ALLI with probe detection Not Detected [facility] This lab was ordered by [facility] and reported by [employer] ID Date Data Source [id number] 11/06/2020 10:59:00 AM EDT [facility] Name Value Range Interpretation Code Description Data Meghna rce(s) Supporting Document(s) SARS-CoV-2 RNA Resp Ql ALLI+probe NOT DETECTED [facility] This lab was ordered by [facility] and re ported by APRYL Balderas. ID Date Data Source [id number] 10/08/2020 05:41:00 AM EDT [facility] Name Value Range Interpretation Code Description Data Meghna rce(s) Supporting Document(s) SARS-CoV-2 (COVID-19) RNA [Presence] in Respiratory specimen by ALLI with probe detection Not Detected [facility] This lab was ordered by [facility] and reported by [employer] ID Date Data Source [id number] 09/09/2020 09:41:00 AM EDT [facility] [address] [place] [address] PHONE: [phone] FAX: [phone] Name .................. : ANA QUEZADA Acct Number.................. : [id number] ROOM. ................. : TR-04 Number ................... : [id number] Stay type ............. : E/R Discharge Date......... ... : 09/08/20 Admit Date ......... : 09/08/20 Admit Phys .................... : EVARISTO Aranda Date of ....... : 1990 Family Phys ................... : NO PCP Phone .................. : [phone] Age ................................ : 30 Film# .................. .:[id number] Sex ................................. : F Unsigned transcriptions are preliminary reports and do not represent a medical or legal document OB 1ST TRI UP TO 14 WEEKS 23091 COMPLETE:09/08/20 18:20 GS 8499 Reason(s): bleeding OB ULTRASOUND: FIRST TRIMESTER EXAMINATION CLINICAL HISTORY: 30-year-old female with first trimester bleeding. COMPARISON: Ultrasound from 07/29/20. FINDINGS: There is a single live intrauterine . Based on crown rump length, the estimated gestational age is 13 weeks 1 day. The heart rate is documented at 160 beats per minute. The left ovary appears within normal limits, a corpus luteum cyst measuring 2.1 cm is noted. The right ovary is not visualized. The cervical length is measured at 3.1 cm. IMPRESSION: Single viable intrauterine with the heart rate of 160 beats per minute. Electronically Reviewed and Signed By Tyron Dick MD , 09/09/20 09:41, AILYN Transcribe Initials: ROSIO , Transcribe Date: 09/08/20 21:13, Dictation Date: Copy for: EMERGENCY DEPT via modem Copy for: 710 MED REC DISCHARGED Page 1 of 1 Name Value Range Interpretation Code Description Data Meghna rce(s) Supporting Document(s) ID Date Data Source [id number] 09/08/2020 05:09:00 PM EDT [facility] 1 [facility]Sheet [facility] [address] [place] [address] Phone #: ext- [phone] 09/08/2020 17:02 Patient: DAMIEN PEREZ Sex: F : 1990 Age: 30yWEIGHT:75.2 kg (S) HEIGHT:69 inches (S) BMI:24.5ALLERGIES: No Known Drug Allergy, Pharmacy of choice [facility] COMPLAINT: vag bleedingDIAGNOSIS: Threatened abortionLAB ORDERSOrder Description Priority Entered Acknowledged InitialedType Rh ST AT 17:18 09/08/2020 17:19 Evaristo Ybarra Jack ; Monica ColeCBC w Diff STAT 17:18 09/08/2020 17:19 Evaristo Ybarra Jack ; Amber R.N.BMP STAT 17:18 09/08/2020 17:19 Evaristo Ybarra Jack ; Amber R.N.Rhogam STAT 17:19 09/08/2020 Ack'd: 17:19 17:23 Tate(D-Immune Jhonathan Jung ; Monica YbarraNTessaGlobulin) R.N.Urinalysis (Clean STAT 17:19 09/08/2020 Ack'd: 17:20 18:50 Janis,Catch) Jhonathan Jung ; Monica Ybarra Nasrin R.NTessa R.N.DIAGNOSTIC STUDY ORDERSOrder Description Priority Entered Acknowledged InitialedUS OB 1ST TRI UP STAT 17:18 09/08/2020 Ack'd: 17:19 17:33 Tate,TO 14 WEEKS Jhonathan Jung ; Monica YbarraNTessa(Oxygen?(No)) R.NTessa(IV?(No)) Reason for Study: bleedingMEDICATION/IV/DRIP/FLU ID ORDERSOrder Description Priority Entered Acknowledged InitialedAcetaminophen PO 17:18 09/08/2020 Ack'd: 17:19 17:23 Tate,1000 mg (NOW x1) Jhonathan Jung ; Monica Ybarra R.N., R.N.GENERAL ORDERS 2 [facility] [address] [place] [address] Phone #: ext- [phone] 09/08/2020 17:02 Patient: DAMIEN PEREZ Sex: F : 1990 Age: 30yOrder Description Priority Entered Acknowledged Initialed[Electronically signed by Monica Ybarra R.N. (:09/08/2020)][Electronically signed by Jhonathan Jung (20:01 09/08/2020)][Electronically locked by Monica Ybarra R.N. (09/08/2020)] Name Value Range Interpretation Code Description Data Meghna rce(s) Supporting Document(s) ID Date Data Source [id number] 09/08/2020 05:09:00 PM EDT [facility] 1 Medication Reconciliation Report [facility] [address] [place] [address] Phone #: ext- [phone] 09/08/2020 17:02 Patient: DAMIEN PEREZ Sex: F : 1990 Age: 30yWeight: 75.2 kgHeight/Length: 69 in.BMI: 24.5ALLERGIES: No Known Drug Allergy, Pharmacy of choice [facility] patient's Home Medications are listed below:THE FOLLOWING MEDICATIONS NEED TO BE RECONCILED: prenatals Zofran Oral, prnThe source(s) of the original Home Medication information:patientThe following Medications were given to the patient in the Emergency Department:Acetaminophen [PO] PO 1000 mg, administered: 17:23 09/08/2020The following Medications were prescribed to the patient:None. Name Value Range Interpretation Code Description Data [facility](s) Supporting Document(s) ID Date Data Source [id number] 09/08/2020 05:09:00 PM EDT [facility] 1 Medication Administration Record [facility] [address] [place] [address] Phone #: ext- [phone] 09/08/2020 17:02 Patient: DAMIEN PEREZ Sex: F : 1990 Age: 30yWeight: 75.2 kgHeight/Length: 69 inBMI: 24.5ALLERGIES: No Known Drug Allergy, Pharmacy of choice [facility] Date/Time Medication Administered Medication OrderedGiven ACETAMINOPHEN [PO] Acetaminophen PO 1000 mg17:23 09/08/2020 Dose: 1000 mg Tablets PO (NOW x1)Monica Ybarra R.N. Name Value Range Interpretation Code Description Data [facility](s) Supporting Document(s) ID Date Data Source [id number] 09/08/2020 05:09:00 PM EDT [facility] 1 General Instructions [facility] [address] [place] [address] Phone #: ext- [phone] 09/08/2020 17:02 Patient: DAMIEN PEREZ Sex: F : 1990 Age: 30yThreatened ; positive test in emergency department. Ultrasound demonstrated anintrauterine .INSTRUCTIONSDo not work for two days.Warnings: Further evaluation is necessary.GENERAL WARNINGS: Return or contact your physician immediately if your condition worsens orchanges unexpectedly, if not improving as expected, or if other problems arise.Follow-up:Return to the emergency department in two days if not better. Follow up with your healthcare provider.Understanding of the discharge instructions verbalized by patient. ADDITIONAL INFORMATIONPossible Miscarriage (Threatened )You may be having a miscarriage.Common signs of a miscarriage are pain and bleeding. A small amount of bleeding can be normalduring the first 3 months of . Often the pain and bleeding stop, and you have a normalpregnancy and baby. But heavy bleeding or severe cramping can be an early sign of miscarriage. Amiscarriage means an unexpected loss of your .At this time, your healthcare provider doesn't know whether you will have a miscarriage, or if thingswill clear up and your will continue normally. This can be emotionally difficult. There is littlethat can be done to change the way you feel. But understand that miscarriages are common.About 1 or 2 out of every [address] Some even end before you know you are. This happens for a number of reasons, and usually the cause is never known. It's importantyou know that it is not your fault. It didn't happen because you did anything wrong.Having sex or exercising does not cause a miscarriage. These activities are usually safe unless youhave pain or bleeding or your healthcare provider tells you to stop. Even minor falls won't cause amiscarriage. Miscarriages happen because things were not developing as they were supposed to. No 2 General Instructions [facility] [address] [place] [address] Phone #: ext- [phone] 09/08/2020 17:02 Patient: DAMIEN PEREZ Sex: F : 1990 Age: 30ymedicine can prevent a miscarriage.Again, understand that things are uncertain right now. You may still have some bleeding. This may belight spotting or like a period, and you may pass some tissue. You may have some cramping. This iswhy follow-up care is important.Home careTo improve the chance of keeping your , you should take these steps: Rest in bed until the pain and bleeding stop. Don't have sex until your healthcare provider says it's OK. Use sanitary napkins instead of tampons. Don't douche. Don't take aspirin, ibuprofen, or naproxen. Don't have alcoholic or caffeinated beverages or smoke.Follow-up careMake an appointment with your healthcare provider within the next week, or as directed.If you had an ultrasound, a radiologist will review it. You will be told of any new findings that mayaffect your care.Call 911Call 911 if you have: Severe pain and very heavy bleeding Severe lightheadedness, passing out, or fainting Rapid heart rate Trouble breathing Confusion or trouble waking upWhen to seek medical adviceCall your healthcare provider right away if any of these occur: Vaginal bleeding or pain that lasts for more than 3 days 3 General Instructions [facility] [address] [place] [address] Phone #: ext- [phone] 09/08/2020 17:02 Patient: DAMIEN PEREZ Sex: F : 1990 Age: 30y Heavy bleeding. This means soaking 1 new pad an hour over 3 hours. Fever of 100.4F (38C) or higher, or as directed by your healthcare provider Pain in your lower belly (abdomen) that gets worse Weakness or dizziness Passage of anything t hat resembles tissue. This would be pink or grayish membrane or solid material. Save the tissue in a clean container and bring it to your provider. [id number] [email or web address]. [address] [place] [address], [place] [address]. All rights reserved. This information is not intended as asubstitute for professional medical care. Always follow your healthcare professional's instructions. You have been given the following additional information: Possible Miscarriage (Threatened ) Do not work for two days.(Electronically signed by Jhonathan Jung 09/08/2020 20:01) Name Value Range Interpretation Code Description Data Meghna rce(s) Supporting Document(s) ID Date Data Source [id number] 09/08/2020 05:09:00 PM EDT [facility] 1 Clinical Report - Nurses [facility] [address] [place] [address] Phone #: ext- [phone] 09/08/2020 17:02 Patient: DAMEIN PEREZ Sex: F : 1990 Age: 30yTRIAGEArrived by private vehicle. Historian: patient. Accompanied by family.Chief Complaint: ABDOMINAL PAIN and CRAMPS and SPOTTING.Onset. (1300 today). ( patient is 13 weeks gestation. started with intermittent heavy vaginal bleeding [id number], with mild lower abd cramping. states she had used about 3 pads today.). No vomiting, fever orswelling.Treatment BAGGING SALVAGER:None. --17:11 09/08/20 Nasrin Bruce R.N.Acuity: LEVEL 3.Alert. No acute distress.SEPSIS SCREEN: SEPSIS SCREEN NEGATIVE. No suspected or confirmed signs of infection present.--17:12 09/08/20 Nasrin Bruce R.N.17:12 09/08/20. BP: 122/72. MAP: 88. HR: 69. RR: 16. O2 saturation: 100%. Temp: 98 F. Pain level now:10/07. --17:12 09/08/20 Nasrin Bruce R.N.Weight: 75.2 kg stated. Height/Length: 69 inches Per Patient. BMI: 24.5. --17:03 09/08/20 Nasrin Bruce R.N.MedicationsZofran Oral, as needed. --17:13 09/08/20 Nasrin Brcue R.N. prenatals. --17:13 09/08/20 Nasrin Bruce R.N.AllergiesNo Known Drug Allergy.Pharmacy of [facility]. --17:13 09/08/20 Nasrin Bruce R.N.Medication/allergy information source: the patient. --17:11 09/08/20 Nasrin Bruce R.N.HistoryPAST MEDICAL HX: Immunizations: up-to-date. Currently : EDC: Mar 18. confirmedwith sonogram. Has had care by keg washer. P 3. She has had care. Risks and / orproblems associated with current . --17:11 09/08/20 Nasrin Bruce R.N.PAST MEDICAL HX: ( RH Negative). 2 Clinical Report - Nurses [facility] [address] [place] [address] Phone #: ext- [phone] 09/08/2020 17:02 Patient: DAMIEN PEREZ Sex: F : 1990 Age: 30y SOCIAL HX: Never smoker. No alcohol use or drug use. She was offered HIV testing but declined and hepatitis C testing but declined. She has not traveled outside the [place] Infectious disease exposure: No infectious disease exposure. The patient was not exposed to C-diff, MRSA, VRE, CRE or Coronavirus. SELF HARM ASSESSMENT: Self harm assessment was performed. The patient answered "no" to the question(s) "Have you recently felt down, depressed, or hopeless?", "Do you have thoughts of harming or killing yourself?", "Do you have a plan for harming or killing yourself?", "Have you recently had thoughts about harming or killing others?", "Do you have any dangerous items in your possession?", "Have you noticed less interest or pleasure in doing things?", "Are you here because you tried to hurt yourself?" and "Have you ever tried to hurt yourself before today?". ABUSE ASSESSMENT: No report of abuse. NUTRITIONAL RISK ASSESSMENT: The nutritional risk assessment revealed no deficiencies. FUNCTIONAL ASSESSMENT: Functional assessment: no impairments noted. LEARNING NEEDS ASSESSMENT: The learning needs assessment revealed no barriers. FALL RISK ASSESSMENT: Fall risk assessment completed. No risk factors identified. SKIN INTEGRITY ASSESSMENT: Skin integrity risk assessment completed. No skin integrity risk identified. --17:12 09/08/20 Nasrin Bruce R.N. PAST MEDICAL HX: Last normal menstrual period- April 2020. --17:14 09/08/20 Nasrin Bruce R.N. FAMILY HX: No significant family medical history. --17:24 09/08/20 Jhonathan Jung.PHYSICAL ASSESSMENTAmbulatory to room.GENERAL / NEURO / PSYCH: Alert. Oriented X 4. Appears in no acute distress.HEENT: Mucous membranes are pink.RESPIRATORY: Respirations not labored. Breath sounds within normal limits.CVS: Normal heart rate and rhythm. Capillary refill less than 2 seconds.GI / : Abdomen soft. Vaginal bleeding present. No genital lesions noted. ( cramping).EXTREMITIES: No lower extremity edema.SKIN: Skin is warm and dry. --17:20 09/08/20 Monica Ybarra R.N.NURSING PROGRESS NOTESPatient gowned. Head of bed elevated. Reassurance given. Call light placed in reach. Bed placed inlowest position. Brakes of bed on. Patient ready for evaluation. --17:16 09/08/20 Nasrin Bruce R.N. 3 Clinical Report - Nurses [facility] [address] [place] [address] Phone #: ext- [phone] 09/08/2020 17:02 Patient: DAMIEN PEREZ [facility]#: [id number] Sex: F : 1990 Age: 30y 17:23 09/08/2020 Acetaminophen PO Tablets 1000 mg given. Allergies verified and confirmed 5 rights. Information reviewed with patient including reason for taking this medication, signs of allergic reaction and precautions. Verbalizes understanding. --17:23 09/08/20 Monica Ybarra R.N. [facility] and environmental field technician. --17:34 09/08/20 Monica Ybarra R.N. ( Rhogham injection given in left buttocks). --19:13 09/08/20 Monica Ybarra R.N.DISPOSITION / DISCHARGE Condition at departure: improved and stable. No learning barriers present. Discharge instructions provided and reviewed with the patient. Reviewed warnings. Reviewed referral to an keg washer for followup. Work note given. Patient verbalized understanding. Written instructions provided in Czech. The patient was discharged by the physician. She was discharged home and accompanied by spouse. She left ambulatory and via private vehicle. Spouse driving. --19:25 09/08/20 Monica Ybarra R.N. 19:23 09/08/20. BP: 108/64. MAP: 78. HR: 66. RR: 16. O2 saturation: 100% on room air. Temp: 97.4 F (oral). Pain level now: 07/10. --19:25 09/08/20 Monica Ybarra R.N. 19:30 09/08/20. Departure time: 19:30 09/08/2020. --19:30 09/08/20 Monica Ybarra R.N.Locked/Released at 09/08/2020 19:31 by Monica Ybarra R.N. Name Value Range Interpretation Code Description Data Meghna rce(s) Supporting Document(s) ID Date Data Source [id number] 09/08/2020 05:09:00 PM EDT [facility] 1 Clinical Report - Physicians/Mid Levels [facility] [address] [place] [address] Phone #: ext- [phone] 09/08/2020 17:02 Patient: DAMIEN PEREZ Sex: F : 1990 Age: 30y Time Seen: 17:15 09/08/2020. Arrived- By private vehicle. Historian- patient.HISTORY OF PRESENT ILLNESS Chief Complaint: VAGINAL BLEEDING. EDC is Mar 11. Gestational age is 13 weeks, by sonogram. This started just prior to arrival. She has had moderate vaginal bleeding. Is still present. (2 episodes). No contractions, pelvic pain or vaginal discharge. (Patient reports sudden onset of vaginal bleeding with small clots. Minimal cramping. . No severe a bdominal pain. Patient went home and had another episode of bleeding.). Similar symptoms previously. None. Recent medical care: Not recently seen/assessed.REVIEW OF SYSTEMSNo nausea, vomiting, diarrhea, double vision or fainting episodes. No fever, eye discomfort, cough, chestpain or skin rash. No chills, fatigue, sweats, weight loss or decreased vision. No hematuria, back pain,dizziness, weakness or difficulty with urination. The patient has had a headache and headache. All othersystems reviewed and are negative.PAST HISTORYSee nurses notes. G 4; P 3. No history of diabetes mellitus. The patient has had problems with thecurrent . Problems: Ovarian Cyst. Irritable bowel syndrome (disorder). Migraine Headache. ADHD - Attention Deficit Hyperactivity Disorder. Additional Surgeries: Oophorectomy. (Right) Salpingectomy. (Right). Medications: prenatals. Zofran Oral, as needed. Allergies: 2 Clinical Report - Physicians/[facility] Emergency Department [address] [place] [address] Phone #: ext- [phone] 09/08/2020 17:02 Patient: DAMIEN PEREZ [facility]#: [id number] Sex: F : 1990 Age: 30y No Known Drug Allergy. Pharmacy of choice [facility].SOCIAL HISTORYNever smoker.FAMILY HISTORYNo significant family medical history.ADDITIONAL NOTESThe nursing notes have been reviewed.PHYSICAL EXAMVital Signs: 09/08/2020 17:12 BP: 122/72. MAP: 88. HR: 69. RR: 16. O2 saturation: 100%. Temp: 98 F.Pain level now: 5/10.Appearance: Alert. Oriented X3. No acute distress.HEENT: Normal external inspection.ENT: Pharynx normal.Neck: Neck supple.CVS: Heart sounds normal.Respiratory: No respiratory distress. Breath sounds normal. Chest nontender.Abdomen: Soft and nontender. No organomegaly. No mass. No obesity.Back: Normal external inspection.Pelvic: External exam: bleeding. (cervical os is closed).Skin: Skin warm and dry. Normal skin color. No rash. Normal skin turgor.Extremities: Extremities nontender. No pathologic edema.Neuro: Oriented X 3. Mood/affect normal. No motor deficit. No sensory deficit.LABS, X-RAYS, AND EKGPelvic Sonogram: A single gestation, viable intrauterine is present. Cardiac activity noted.Cardiac activity present. No subchorionic hemorrhage. The study was interpreted by the radiologist.Laboratory Tests: Urinalysis: (CLARA: 09/08/2020 18:35) ( MsgRcvd 09/08/2020 19:34) Final results Test Result Flag Units (Reference) URINALYSIS URINALYSIS SOURCE Clean Catch COLOR yellow (NORMAL: Yello CLARITY clear (NORMAL: Clear SPEC GRAVITY 1.010 (1.001 - 1.030 pH 6 (5 - 9) GLUCOSE NORM (NORMAL: Negat BILIRUBIN NEG (NORMAL: Negat KETONE NEG (NORMAL: Negat PROTEIN NEG (NORMAL: Negat NITRITE NEG (NORMAL: Negat BLOOD 250 A (NORMAL: Negat 3 Clinical Report - Physicians/Mid Levels [facility] [address] [place] [address] Phone #: ext- [phone] 09/08/2020 17:02 Patient: DAMIEN PEREZ Sex: F : 1990 Age: 30y LEUK EST NEG (NORMAL: Negat UROBILINOGEN NOR (less than 1.0 MICROSCOPIC See Below RBC 1 - 3 (NORMAL: NONE EPITHELIAL FEW (NORMAL: NONEType Rh: (CLARA: 09/08/2020 17:24) ( NvgRcvd 09/08/2020 18:48) Final results Test Result Flag Units (Reference) ABO GROUP A RH TYPE NEGATIVE { ABO/RH REENTER A NEGATIVECBC w Diff: (CLARA: 09/08/2020 17:24) ( NvgRcvd 09/08/2020 18:29) Final results Test Result Flag Units (Reference) CBC W/AUTOMATED DIFF COMPLETE BLOOD COUNT WBC 3.5 L 10/uL (4.2 - 11.0) RBC 3.77 L 10/uL (4.20 - 5.40) HEMOGLOBIN 12.2 g/dL (12.0 - 16.0) HEMATOCRIT 34.7 L % (37.0 - 47.0) MCV 92.0 fL (81.0 - 101) MCH 32.4 pg (27.0 - 34.0) MCHC 35.2 g/dL (31.0 - 36.0) RDW 11.9 % (11.5 - 14.5) PLATELETS 183 10/uL (150 - 450) MPV 10.9 H fL (7.4 - 10.4) NEUT 48.5 % (37.0 - 80.0) LYMP H 44.9 H % (25.0 - 40.0) MONO 5.1 % (3.0 - 8.0) EOS 0.6 % (0.0 - 7.0) BASO 0.6 % (0.0 - 2.5) %IG 0.3 H % (0.0 - 0.0) %NRBC 0.0 % (0.0 - 0.0) #NEUT 1.71 L 10/uL (2.00 - 6.90) #LYMPH 1.58 10/uL (0.60 - 3.40) #MONO 0.18 10/uL (0.00 - 0.90) #EOS 0.02 10/uL (0.00 - 0.70) #BASO 0.02 10/uL (0.00 - 0.20) #IG 0.01 10/uL (0.00 - 0.10) #NRBC 0.00 10/uL (0.00 - 0.00) MANUAL DIFF NOT INDICATED RBC MORPH NOT INDICATEDBMP: (CLARA: 09/08/2020 17:24) ( MsgRcvd 09/08/2020 18:27) Final results Test Result Flag Units (Reference) BASIC METABOLIC PANEL BASIC METABOLIC PANEL SODIUM 135 mEq/L (134 - 153) POTASSIUM 4.0 mEq/L (3.6 - 5.0) CHLORIDE 103 mEq/L (98 - 107) CO2 23 MEQ/L (22 - 30) GLUCOSE 83 MG/DL (70 - 99) BUN 8 MG/DL (7 - 21) CREATININE 0.5 L MG/DL (0.7 - 1.5) BUN/CREAT 16 (8 - 27) CALCIUM 9.6 MG/DL (8.4 - 10.2) 4 Clinical Report - Physicians/Mid Levels [facility] [address] [place] [address] Phone #: ext- [phone] 09/08/2020 17:02 Patient: DAMIEN PEREZ Sex: F : 1990 Age: 30y ANION GAP 9.0 mmol/L (8.0 - 16.0) AGE 30 yrs AFR AMER GFR >60 mL/min NON-AA GFR >60 mL/min Male GFR Interprentation 20-49 yrs >60 mL/min Normal 50-59 yrs >56 mL/min Normal 60-69 yrs >49 mL/min Normal 70-79yrs >42 mL/min Normal 80 and above >35 mL/min Normal Female GFR Interpretation 20-39 yrs >60 mL/min Normal 40-49 yrs >58 mL/min Normal 50-59 yrs >51 mL/min Normal 60-69 yrs >45 mL/min Normal 70-79 yrs >39 mL/min Normal 80 and above >32 mL/min Normal US OB 1ST TRI UP TO 14 WEEKS: (CLARA: 09/08/2020 17:18) ( MsgRcvd 09/08/2020 18:20) In Progress US OB 1ST TRI UP TO 14 WEEKS Reason(s): bleeding TRANSPORTATION: S IV? IV?(No) O2? Oxygen?(No) Carol.PROGRESS AND PROCEDURESCourse of Care: 17:25 09/08/20. 13 weeks . Last ultrasound 07/29 showed IUP at 7 weeks. 19:27 09/08/20. No further heavy bleeding. Patient made aware of risk of spontaneous . Rhogam given. No signs of any anemia. vital signs normal and only minimal cramping. Non-surgical abdomen. Disposition: Discharged. Condition: stable.CLINICAL IMPRESSION Threatened ; positive test in emergency department. Ultrasound demonstrated an intrauterine .INSTRUCTIONS Do not work for two days. Warnings: Further evaluation is necessary. GENERAL WARNINGS: Return or contact your physician immediately if your condition worsens or changes unexpectedly, if not improving as expected, or if other problems arise. Follow-up: Return to the emergency department in two days if not better. Follow up with your healthcare provider. Understanding of the discharge instructions verbalized by patient. 5 Clinical Report - Physicians/Mid Levels [facility] [address] [place] [address] Phone #: ext- [phone] 09/08/2020 17:02 Patient: DAMIEN PEREZ Sex: F : 1990 Age: 30y(Electronically signed by Jhonathan Jung 09/08/2020 20:01) Name Value Range Interpretation Code Description Data Meghna rce(s) Supporting Document(s) ID Date Data Source [id number] 09/08/2020 07:31:00 PM EDT [facility] Name Value Range Interpretation Code Description Data Meghna rce(s) Supporting Document(s) URINALYSIS [facility]yer URINALYSIS SOURCE Clean Catch [facility] ital COLOR yellow NORMAL: Yellow [facility] CLARITY clear NORMAL: Clear [facility] Ho spital Specific gravity of Urine by Test strip 1.010 1.001 - 1.030 [facility] pH 6 5 - [facility] Glucose [Mass/volume] in Urine by Test strip NORM NORMAL: Negat [facility] Bilirubin.total [Presence] in Urine by Test strip NEG NORMAL: Negative [facility] Ketones [Presence] in Urine by Test strip NEG NORMAL: Negative [facility] Protein [Mass/volume] in Urine by Test strip NEG NORMAL: Negat [facility] Nitrite [Presence] in Urine by Test strip NEG NORMAL: Negative [facility] BLOOD 250 NORMAL: Negative A [facility] Leukocyte esterase [Presence] in Urine by Test strip NEG JULIA L: Negative [facility] Urobilinogen [Mass/volume] in Urine by Test strip NOR less laquita n 1.0 mg/dL [facility] MICROSCOPIC See Below [facility] ital Erythrocytes [#/volume] in Urine by Test strip 1 - 3 NORMAL: NON E SEEN [facility] EPITHELIAL FEW NORMAL: NONE SEEN [facility] ID Date Data Source [id number] 09/08/2020 06:48:00 PM EDT [facility] Name Value Range Interpretation Code Description Data Meghna rce(s) Supporting Document(s) ABO group [Type] in Blood A [facility] Rh [Type] in Blood NEGATIVE [facility] { ABO/RH REENTER A NEGATIVE ID Date Data Source [id number] 09/08/2020 06:28:00 PM EDT [facility] Name Value Range Interpretation Code Description Data Meghna rce(s) Supporting Document(s) CBC W/AUTOMATED DIFF [facility] COMPLETE BLOOD COUNT Leukocytes [#/volume] in Blood by Automated count 3.5 10^3/uL 4.2 - 1 1.0 L [facility] Erythrocytes [#/volume] in Blood by Automated count 3.77 10^6/uL 4. 20 - 5.40 L [facility] Hemoglobin [Mass/volume] in Blood 12.2 g/dL 12.0 - 16.0 [facility] Hematocrit [Volume Fraction] of Blood by Automated count 34.7 % 3 7.0 - 47.0 L [facility] Erythrocyte mean corpuscular volume [Entitic volume] by Auto mated count 92.0 fL 81.0 - 101 [facility] Erythrocyte mean corpuscular hemoglobin [Entitic mass] by Automated count 32.4 pg 27.0 - 34.0 [facility] Erythrocyte mean corpuscular hemoglobin concentration [Mass/volume] by Automated count 35.2 g/dL 31.0 - 36.0 [facility] Erythrocyte distribution width [Ratio] by Automated count 11.9 % 11.5 - 14.5 [facility] Platelets [#/volume] in Blood by Automated count 183 10^3/uL 150 - 45 0 [facility] Platelet mean volume [Entitic volume] in Blood by Automated count 10.9 fL 7.4 - 10.4 H [facility] Neutrophils/100 leukocytes in Blood by Automated count 48.5 % 37. 0 - 80.0 [facility] Lymphocytes/100 leukocytes in Blood by Manual count 44.9 % 25.0 - 40.0 H [facility] Monocytes/100 leukocytes in Blood by Automated count 5.1 % 3.0 - 8.0 [facility] Eosinophils/100 leukocytes in Blood by Automated count 0.6 % 0.0 - 7.0 [facility] Basophils/100 leukocytes in Blood by Automated count 0.6 % 0.0 - 2.5 [facility] %IG 0.3 % 0.0 - 0.0 H [facility] al %NRBC 0.0 % 0.0 - 0.0 [facility] al Neutrophils [#/volume] in Blood by Automated count 1.71 10^3/uL 2.00 - 6.90 L [facility] Lymphocytes [#/volume] in Blood by Automated count 1.58 10^3/uL 0.60 - 3.40 [facility] Monocytes [#/volume] in Blood by Automated count 0.18 10^3/uL 0.00 - 0.90 [facility] Eosinophils [#/volume] in Blood by Automated count 0.02 10^3/uL 0.00 - 0.70 [facility] Basophils [#/volume] in Blood by Automated count 0.02 10^3/uL 0.00 - 0.20 [facility] #IG 0.01 10^3/uL 0.00 - 0.10 [facility] #NRBC 0.00 10^3/uL 0.00 - 0.00 [facility] MANUAL DIFF NOT INDICATED [facility] RBC MORPH NOT INDICATED [facility] spital ID Date Data Source [id number] 09/08/2020 06:27:00 PM EDT [facility] Name Value Range Interpretation Code Description Data Meghna rce(s) Supporting Document(s) BASIC METABOLIC PANEL [facility] BASIC METABOLIC PANEL Sodium [Moles/volume] in Serum or Plasma 135 mEq/L 134 - 153 [facility] Potassium [Moles/volume] in Serum or Plasma 4.0 mEq/L 3.6 - 5.0 [facility] Chloride [Moles/volume] in Serum or Plasma 103 mEq/L 98 - 107 [facility] Carbon dioxide, total [Moles/volume] in Serum or Plasma 23 MEQ/L 22 - 30 [facility] Glucose [Mass/volume] in Serum or Plasma 83 MG/DL 70 - 99 [facility] BUN 8 MG/DL 7 - 21 [facility] Creatinine [Mass/volume] in Serum or Plasma 0.5 MG/DL 0.7 - 1.5 L [facility] BUN/CREAT 16 8 - 27 [facility] Calcium [Mass/volume] in Serum or Plasma 9.6 MG/DL 8.4 - 10.2 [facility] Anion gap 3 in Serum or Plasma 9.0 mmol/L 8.0 - 16.0 [facility] AGE 30 yrs [facility] al AFR AMER GFR >60 mL/min [facility] spital NON-AA GFR >60 mL/min [facility]osp ital Male GFR Inter prentation 20-49 yrs >60 mL/min Normal 50-59 yrs >56 mL/min Normal 60-69 yrs >49 mL/min Normal 70-79yrs >42 mL/min Normal 80 and above >35 mL/min Normal Female GFR Interpretation 20-39 yrs >60 mL/min Normal 40-49 yrs >58 mL/min Normal 50-59 yrs >51 mL/min Normal 60-69 yrs >45 mL/min Normal 70-79 yrs >39 mL/min Normal 80 and above >32 mL/min Normal ID Date Data Source [id number] 08/06/2020 08:30:[address] [facility] Name Value Range Interpretation Code Description Data Meghna rce(s) Supporting Document(s) SARS coronavirus 2 RNA Not Detected [facility] This lab was ordered by [facility] and reported by [facility]. ID Date Data Source [id number] 07/29/2020 08:08:00 PM EST [facility] 1 OrderSheet [facility] [address] [place] [address] Phone #: ext- [phone] 07/29/2020 20:03 Patient: DAMIEN PEREZ Sex: F : 1990 Age: 30yWEIGHT:84.8 kg (S) HEIGHT:69 inches (S) BMI:27.6ALLERGIES: No Known Drug Allergy, [facility] COMPLAINT: abdominal painDIAGNOSIS: Patient currently , Cyst of ovaryLAB ORDERSOrder Description Priority Entered Acknowledged InitialedCBC w Diff STAT 20:22 07/29/2020 20:22 Ismael Allen Riccardo Katelyn M.D.;CMP STAT 20:22 07/29/2020 20:22 Ismael Allen Riccardo Katelyn M.D.;Lipase STAT 20:22 07/29/2020 20:22 Ismael Allen Riccardo Katelyn M.D.;Urinalysis (Clean STAT 20:22 07/29/2020 20:22 Alejandro,Catch) Reynaldo Guevara M.D.;Type Rh STAT 20:07/29/2020 20:22 Ismael Allen Riccardo Katelyn M.D.;Beta-HCG, Quant STAT 20:22 07/29/2020 20:22 Alejandro,Serum Reynaldo Guevara M.D.;Lactic Acid STAT 20:22 07/29/2020 20:22 Ismael Allen Riccardo Katelyn M.D.;DIAGNOSTIC STUDY ORDERSOrder Description Priority Entered Acknowledged InitialedUS OB 1ST TRI W STAT 21:45 07/29/2020 Ack'd: 21:46 22:43 Alejandro,TV IF NEEDED Reynaldo Guevara Katelyn Katelyn(Oxygen?(No)) [place]ick;(IV?(Yes)) Reason for Study: left pelvic pain, , LMP: 06-09-20, 6-7 weeksMEDICATION/IV/DRIP/FLUID ORDERS 2 OrderSheet [facility] [address] [place] [address] Phone #: ext- [phone] 07/29/2020 20:03 Patient: DAMIEN EPREZ Sex: F : 1990 Age: 30yOrder Description Priority Entered Acknowledged InitialedNS IV : Bolus 500 20:22 07/29/2020 20:29 Alejandro,mL, then 150 mL/hr Reynaldo Guevara M.D.;Reglan 10 mg IVP 20:22 07/29/2020 20:29 Alejandro,X1 dose: 10 mg Reynaldo Guevara(NOW x1) [place]verick;Ofirmev IV 1000 mg 21:52 07/29/2020 21:54 Alejandro(NOW x1, Infuse Reynaldo Guevara 15 minutes) [place]verick;GENERAL ORDERSOrder Description Priority Entered Acknowledged InitialedNPO 20:22 07/29/2020 20:22 Ismael Allen Riccardo Katelyn M.D.;Saline Lock 20:22 07/29/2020 20:22 Ismael Allen Riccardo Katelyn M.D.;[Electronically signed by Suzanna Allen (00:07 07/30/2020)][Electronically signed by Reynaldo Guevara M.D. (00:09 07/30/2020)][Electronically locked by Suzanna Allen (00:07 07/30/2020)] Name Value Range Interpretation Code Description Data Meghna rce(s) Supporting Document(s) ID Date Data Source [id number] 07/29/2020 08:08:00 PM EST [facility] 1 Medication Reconciliation Report [facility] [address] [place] [address] Phone #: ext- [phone] 07/29/2020 20:03 Patient: DAMIEN PEREZ Sex: F : 1990 Age: 30yWeight: 84.8 kgHeight/Length: 69 in.BMI: 27.6ALLERGIES: No Known Drug Allergy, Pharmacy of choice [facility] patient's Home Medications are listed below:CONTINUE TAKING THE FOLLOWING MEDICATIONS: Mydayis Oral (37.5 mg), has not taken in 2 weeks Zofran Oral, prnThe source(s) of the original Home Medication information:Not obtained.The following Medications were given to the patient in the Emergency Department:NS [IV] IV Fluids bolus 500 mL over 30 minute(s), administered: 20:29 07/29/2020eglan [IVP] IVP 10 mg, administered: 20:29 07/29/2020OFIRMEV IV bolus 0, then 1 g, administered: 21:54 07/29/2020The following Medications were prescribed to the patient:None. Name Value Range Interpretation Code Description Data Meghna rce(s) Supporting Document(s) ID Date Data Source [id number] 07/29/2020 08:08:00 PM EST [facility] 1 Medication Administration Record [facility] [address] [place] [address] Phone #: ext- [phone] 07/29/2020 20:03 Patient: DAMIEN PEREZ Sex: F : 1990 Age: 30yWeight: 84.8 kgHeight/Length: 69 inBMI: 27.6ALLERGIES: No Known Drug Allergy, Pharmacy of choice [facility] Date/Time Medication Administered Medication OrderedStart NS [IV] NS IV : Bolus 500 mL, then 33490:[id number] 07/29/2020 Dose: IV Fluids mL/Suzanna Phillips, Bolus: 500 mL over 30 minute(s)---- Dispensed: 1000 mL bagStop Site: #1 right AC00:04 07/30/2020Suzanna crooks,Given REGLAN [IVP] (METOCLOPRAMIDE Reglan 10 mg IVP X1 dose: 10 mg20:29 07/29/2020 HCL) (NOW x1)Suzanna Allen, Dose: 10 mg IVP Site: #1 right ACStart OFIRMEV * Ofirmev IV 1000 mg (NOW x1,21:54 07/29/2020 Dose: 1 g * IV Infuse over 15 minutes)Suzanna Allen,----Stop22:10 07/29/2020Suzanna crooks, Name Value Range Interpretation Code Description Data Meghna rce(s) Supporting Document(s) ID Date Data Source [id number] 07/29/2020 08:08:00 PM EST [facility] 1 [facility] [address] [place] [address] Phone #: ext- [phone] 07/29/2020 20:03 Patient: DAMIEN PEREZ Sex: F : 1990 Age: 30yFirst trimester . (7 weeks).Single simple left ovarian cyst.INSTRUCTIONSDrink plenty of fluids. Avoid alcohol and NSAIDS. NSAIDS include aspirin, ibuprofen (Advil) and naproxen(Aleve). Avoid fatty, fried/greasy, lactose-containing (such as milk, cheese and ice cream), salty and spicyfoods. No alcohol. Do not smoke.Warnings: Further evaluation is necessary (CLINICAL INFORMATICS SPECIALIST). It is very important to follow up with a healthcareprovider.GENERAL WARNINGS: Return or contact your physician immediately if your condition worsens orchanges unexpectedly, if not improving as expected, or if other problems arise. SPECIFICALLY, return ifyou develop pain in the abdomen, pelvis, back or shoulder, fever, vomiting, the inability to keep fluidsdown, blood in vomitus, blood in diarrhea, fainting, lightheadedness or vaginal bleeding.Your Current Medications: Your current home medications have been reviewed.CONTINUE TAKING THE FOLLOWING MEDICATIONS:Mydayis Oral : Capsule Extended Release 24 Hour 37.5 mg, has not taken in 2 weeks.Zofran Oral : prn.Follow-up:Return to the emergency department as needed. Follow up with an keg washer tomorrow even if well.Call for an appointment. Reason for referral: evaluation and treatment. Summary of care provided topatient via paper.Understa nding of the discharge instructions verbalized by patient. Expected course of illness, dischargeinstructions, activity level, diet, follow-up appointment and risks and benefits of treatment reviewed withpatient and understanding verbalized. Agrees to plan of care.Follow-up with: [facility], , , [address] [place], [address] Follow up tomorrow even if well. Call for an appointment. Reason for referral: evaluation and treatment.Summary of care provided to patient via paper. ADDITIONAL INFORMATION 2 General Instructions [facility] [address] [place] [address] Phone #: ext- [phone] 07/29/2020 20:03 Patient: DAMIEN PEREZ Sex: F : 1990 Age: 30yOvarian CystsThe ovaries are two small organs located on each side of a woman's uterus (womb). They are part ofthe female reproductive system. Ovarian cysts are sacs filled with fluid or tissue that form on or insidethe ovaries.Ovarian cysts are common in women, especially during childbearing years. There are different typesof cysts. Most are harmless (benign) and go away on their own. They often cause no symptoms. Ifsymptoms do occur, they can include mild pain or pressure in the lower belly (abdomen).Cysts that are large or break (rupture) may cause more severe pain and symptoms. In these cases,you may need hospital care or treatment such as surgery. You may need more extensive treatment ifa cyst causes an ovary to twist (called torsion) or if your doctor suspects your cyst is cancerous. Keepin mind that most cysts are not cancerous, however.General care To help relieve pain, your healthcare provider may recom mend using [id number] pain medicine. If needed, your provide may prescribe stronger pain medicine. Depending on the type of cyst you have, your healthcare provider may advise taking control pills. These help shrink cysts in certain cases. They may also help prevent new cysts from forming. Be sure to take these medicines as directed if they are prescribed. Your healthcare provider may advise you to watch your symptoms over time to see if they go away or worsen. Regular ultrasound tests may also be advised. These can help check if a cyst goes away or grows in size. 3 General Inst[facility] [address] [place] [address] Phone #: ext- [phone] 07/29/2020 20:03 Patient: DAMIEN PEREZ Sex: F : 1990 Age: 30yFollow-up careFollow up with your healthcare provider, or as advised.When to seek medical adviceCall your healthcare provider right away if any of these occur: Pain worsens or fails to get better with home treatment Fever of 100.4F (38C) or higher (or other fever amount directed by your healthcare provider) Nausea and vomiting Weakness, dizziness, or fainting Abnormal vaginal bleeding [id number] [employer]. [address] [place] [address]. All rights reserved. This information is not intended as asubstitute for professional medical care. Always follow your healthcare professional's instructions.PregnancyYour exam today shows that you are . symptoms 4 General Inst[facility] [address] [place] [address] Phone #: ext- [phone] 07/29/2020 20:03 Patient: DAMIEN PEREZ Sex: F : 1990 Age: 30yDuring your body's hormones change. This causes physical and emotional changes. Thisis normal. Knowing what to expect is important for your piece of mind and so you know when to seekhelp for a problem. Here are some of the most common symptoms: Morning sickness or nausea. This can happen any time of the day or night. Tender, swollen breasts Need to urinate frequently Tiredness or fatigue Dizziness Indigestion or heartburn Food cravings or turn-offs Constipation Emotional changes. This can range from anxiety to excitement to depression.General care for a healthy pregnancyHere are things you can do to help make sure your baby is born healthy: Rest when you feel tired. This is especially true in the later months of . Drink more fluids. Your body needs more fluids than you may be used to. Drink 8 to10 glasses of juice, milk, or water every day. Eat well-balanced meals. Eat at regular times to give your body enough protein. You can expect to gain about 30 pounds during the . Don't try to diet or lose weight while you are . Take a vitamin every day. This helps you meet the extra nutritional needs of . Don't take any other medicine during your unless your healthcare provider tells you to. This includes prescription medicines and those you buy over the counter. Many medicines can harm the growing baby. If you have nausea or vomiting, don't eat greasy or fried foods. Eat several smaller meals throu ghout the day rather than 3 large meals. If you smoke, you must stop. The nicotine you breathe in goes right to the baby. Stay away from alcohol, even in moderate amounts. Daily drinking will harm your baby and can cause permanent brain damage. 5 General Instructions [facility] [address] [place] [address] Phone #: ext- [phone] 07/29/2020 20:03 Patient: DAMIEN PEREZ Sex: F : 1990 Age: 30y Don't use recreational drugs, especially cocaine, crack, and heroin. These will harm your baby. Also avoid marijuana. If you were using recreational drugs or prescribed medicine when you found out that you were , talk with your healthcare provider about possible effects on your growing baby. If you have medical problems that you need to take medicine for, talk with your healthcare provider.Follow-up careCall your healthcare provider to arrange for care. care is important. You can seeyour family provider, a specialist (keg washer), a cleaner assistant, or a primary care clinic.When to seek medical adviceCall your healthcare provider right away if any of these occur: Vaginal bleeding Pain in your belly (abdomen) or back that is moderate or severe Lots of vomiting, or you can't keep any fluids down for 6 hours Burning feeling when you urinate Headache, dizziness, or rapid weight gain Fever Vision changes or blurred vision [id number] [employer]. [address] [place] [address]. All rights reserved. This information is not intended as asubstitute for professional medical care. Always follow your healthcare professional's instructions. 6 General Inst[facility] [address] [place] [address] Phone #: ext- [phone] 07/29/2020 20:03 Patient: DAMIEN PEREZ Sex: F : 1990 Age: 30yYour exam today shows that you are . symptomsDuring your body's hormones change. This causes physical and emotional changes. Thisis normal. Knowing what to expect is important for your piece of mind and so you know when to seekhelp for a problem. Here are some of the most common symptoms: Morning sickness or nausea. This can happen any time of the day or night. Tender, swollen breasts Need to urinate frequently Tiredness or fatigue Dizziness Indigestion or heartburn Food cravings or turn-offs Constipation Emotional changes. This can range from anxiety to excitement to depression.General care for a healthy pregnancyHere are things you can do to help make sure your baby is born healthy: 7 General Instructions [facility] Department [address] [place] [address] Phone #: ext- [phone] 07/29/2020 20:03 Patient: DAMIEN PEREZ Sex: F : 1990 Age: 30y Rest when you feel tired. This is especially true in the later months of . Drink more fluids. Your body needs more fluids than you may be used to. Drink 8 to10 glasses of juice, milk, or water every day. Eat well-balanced meals. Eat at regular times to give your body enough protein. You can expect to gain about 30 pounds during the . Don't try to diet or lose weight while you are . Take a vitamin every day. This helps you meet the extra nutritional needs of . Don't take any other medicine during your unless your healthcare provider tells you to. This includes prescription medicines and those you buy over the counte r. Many medicines can harm the growing baby. If you have nausea or vomiting, don't eat greasy or fried foods. Eat several smaller meals throughout the day rather than 3 large meals. If you smoke, you must stop. The nicotine you breathe in goes right to the baby. Stay away from alcohol, even in moderate amounts. Daily drinking will harm your baby and can cause permanent brain damage. Don't use recreational drugs, especially cocaine, crack, and heroin. These will harm your baby. Also avoid marijuana. If you were using recreational drugs or prescribed medicine when you found out that you were , talk with your healthcare provider about possible effects on your growing baby. If you have medical problems that you need to take medicine for, talk with your healthcare provider.Follow-up careCall your healthcare provider to arrange for care. care is important. You can seeyour family provider, a specialist (keg washer), a cleaner assistant, or a primary care clinic.When to seek medical adviceCall your healthcare provider right away if any of these occur: Vaginal bleeding Pain in your belly (abdomen) or back that is moderate or severe Lots of vomiting, or you can't keep any fluids down for 6 hours 8 General Instructions [facility] Department [address] [place] [address] Phone #: ext- [phone] 07/29/2020 20:03 Patient: DAMIEN PEREZ Sex: F : 1990 Age: 30y Burning feeling when you urinate Headache, dizziness, or rapid weight gain Fever Vision changes or blurred vision [id number] [employer]. [address] [place] [address]. All rights reserved. This information is not intended as asubstitute for professional medical care. Always follow your healthcare professional's instructions. You have been given the following additional information: Ovarian Cyst , New Dx , New Dx(Electronically signed by Reynaldo Guevara M.D. 07/30/2020 00:09) Name Value Range Interpretation Code Description Data Meghna rce(s) Supporting Document(s) ID Date Data Source [id number] 07/29/2020 08:08:00 PM [facility] 1 Clinical Report - Nurses [facility] [address] [place] [address] Phone #: ext- [phone] 07/29/2020 20:03 Patient: DAMIEN PEREZ Sex: F : 1990 Age: 30yTRIAGEArrived by private vehicle. Historian: patient.Acuity: LEVEL 3.Chief Complaint: ABDOMINAL PAIN and NAUSEA and CONSTIPATION.Alert. No acute distress.Onset. (1 weeks). ( Pt reports being constipated for 1 week. She has tried colace, a glycerin suppository,miralax, enemas,and mag citrate. She had a very small amount of hard stool this morning around 11.Yesterday, the nausea started and has gotten worse today. She also reports having LLQ pain. She hashad a positive home test 2 weeks ago but has not seen an ob yet. She believes she isaround 6 weeks.). She has had constipation.Treatment BAGGING SALVAGER:(glycerin suppository, miralax, mag citrate, colace, enema).SEPSIS SCREEN: SIRS SCREEN NEGATIVE: heart rate greater than 90. SEPSIS SCREEN NEGATIVE.No suspected or confirmed signs of infection present.CLAUDETTE COMA SCORE: 15- eyes open- spontaneous (4); best verbal response- oriented (5); bestmotor response- obeys commands (6). --20:12 07/29/20 Jeane Chavez R.N.20:03 07/29/20. BP: 144/91. MAP: 108. HR: 98. RR: 16. O2 saturation: 100%. Temp: 98.7 F. Pain levelnow: 01/07. --20:12 07/29/20 Jeane Chavez R.N.Weight: 84.8 kg stated. Height/Length: 69 inches Per Patient. BMI: 27.6. --20:10 07/29/20 Jeane Chavez R.N.MedicationsMydayis Oral (Capsule Extended Release 24 Hour 37.5 mg) (has not taken in 2 weeks). --20:11 07/29/20Jeane Chavez R.N. Zofran Oral, as needed. --20:11 07/29/20 Jeane Chavez R.N.AllergiesNo Known Drug Allergy. --20:11 07/29/20 Jeane Chavez R.N.[facility]. --20:18 07/29/20 Shanika Sexton R.N.PROBLEMS:Irritable bowel syndrome (disorder). --20:12 07/29/20 Chavez, Jeane, R.N. 2 Clinical Report - Nurses [facility] [address] [place] [address] Phone #: ext- [phone] 07/29/2020 20:03 Patient: DAMIEN PEREZ Sex: F : 1990 Age: 30y History PAST MEDICAL HX: Last normal menstrual period- Jun 10. 4. Para 3. Currently . SOCIAL HX: Never smoker. No alcohol use or drug use. No recent travel. No known contact with a sick individual. She was offered HIV testing but declined and hepatitis C testing but declined. She has not traveled outside the [place] Infectious disease exposure: The patient was not exposed to C- diff, MRSA, VRE or CRE. (had covid 06/03/20). SELF HARM ASSESSMENT: Self harm assessment was performed. The patient answered "no" to the question(s) "Have you recently felt down, depressed, or hopeless?", "Do you have thoughts of harming or killing yourself?", "Do you have a plan for harming or killing yourself?", "Have you recently had thoughts about harming or killing others?", "Do you have any dangerous items in your possession?", "Have you noticed less interest or pleasure in doing things?", "Are you here because you tried to hurt yourself?" and "Have you ever tried to hurt yourself before today?". ABUSE ASSESSMENT: No report of abuse. NUTRITIONAL RISK ASSESSMENT: The nutritional risk assessment revealed no deficiencies. FUNCTIONAL ASSESSMENT: Functional assessment: no impairments noted. LEARNING NEEDS ASSESSMENT: The learning needs assessment revealed no barriers. FALL RISK ASSESSMENT: Fall risk assessment completed. No risk factors identified. SKIN INTEGRITY ASSESSMENT: Skin integrity risk assessment completed. No skin integrity risk identified. --20:12 07/29/20 Jeane Chavez R.N. Interventions To treatment room. --20:12 07/29/20 Chavez, Jeane, R.N.PHYSICAL ASSESSMENTAmbulatory to room.GENERAL / NEURO / PSYCH: Alert. Oriented X 4. Appears in no acute distress.HEENT: Mucous membranes are pink.RESPIRATORY: Respirations not labored. Breath sounds within normal limits.CVS: Normal sinus rhythm noted. Capillary refill less than 2 seconds.GI / : Abdomen soft. Abdominal tenderness in the left lower quadrant and lower abdomen. Bowelsounds within normal limits. Normal genitalia. ( per patient).SKIN: Skin is warm and dry. --20:16 07/29/20 Suzanna Allen.NURSING PROGRESS NOTESPatient gowned. Reassurance given. Two patient identifiers checked. Call light placed in reach.Patient ready for evaluation- PA notified. --20:12 07/29/20 Jeane Chavez R.N. 3 Clinical Report - Nurses [facility] Department [address] [place] [address] Phone #: ext- [phone] 07/29/2020 20:03 Patient: DAMIEN PEREZ Sex: F : 1990 Age: 30y20:05 07/29/2020 Site #1 started via IV in the right antecubital space with an 20g angiocath, with aseptictechnique and good blood return; one attempt. Blood drawn: rainbow set. Saline lock flushed with saline.--20:16 07/29/20 Michael Allen provided for the rectal exam by the physician. ( Dr. Guevara and this nurse). --20:20 07/29/20Seymour Allenn20:29 07/29/2020 Started bag #1 1000 mL IV Fluids NS; bolus of 500 mL over 30 minute(s) via site #1 viaIV pump. Allergies verified and confirmed 5 rights. IV patency established. IV site checked: no pain,redness, or swelling. IV flushed thoroughly pre- and post- medication administration. Information reviewedwith patient including reason for taking this medication, signs of allergic reaction and precautions.Verbalizes understanding. --20:29 07/29/20 Ariel Allen0:29 07/29/2020 Reglan (Metoclopramide HCl) IVP 10 mg given over 3 minute(s) via site #1. Allergiesverified and confirmed 5 rights. IV patency established. IV site checked: no pain, redness, or swelling. IVflushed thoroughly pre- and post-medication administration. IVP given by RN. Information reviewed withpatient including reason for taking this medication, signs of allergic reaction and precautions. Verbalizesunderstanding. --20:29 07/29/20 Ariel Allen1:07/29/2020 IV Fluids NS via IV site #1 Rate Changed: bag #1 decreased to 150 mL/hr. Confirmed 5Rights. IV patency established. IV site checked: no pain, redness, or swelling. IV flushed thoroughly.--21:07/29/20 Luis Sexton RNReassurance given.Rounding: Pain: assessed pain level. Position: states comfortable. Personal care / toileting: denies toiletingneeds. Proximity of possessions / care items: call light within easy reach. Plug ins: assured IV pumpplugged in; checked status of equipment in use; located all cords, tubes, and lines to prevent fall hazard.--21:10 07/29/20 Fabrice lAlen telyn21:54 07/29/2020 [facility] g --21:54 07/29/20 Seymour AllennReassurance given.Rounding: Pain: assessed pain level. Position: states comfortable. Personal care / toileting: denies toiletingneeds. Proximity of possessions / care items: call light within easy reach. Plug ins: assured IV pumpplugged in; checked status of equipment in use; located all cords, tubes, and lines to prevent fall hazard.--21:59 07/29/20 Ariel Allen2:10 07/29/2020 OF[facility] IV Discontinued: completed. Total amount infused: 100 mL. IV patencyestablished. IV site checked: no pain, redness, or swelling. IV flushed thoroughly. --22:43 07/29/20 Suzanna Allen 4 Clinical Report - Nurses [facility] [address] [place] [address] Phone #: ext- [phone] 07/29/2020 20:03 Patient: DAMIEN PEREZ Sex: F : 1990 Age: 30y Patient transported to sonogram by wheelchair with mask and tech. --22:43 07/29/20 Suzanna Allen Patient returned from sonogram by wheelchair with mask and tech. --23:04 07/29/20 Suzanna Allen 21:00 07/29/20. BP: 103/67. MAP: 79. HR: 63. RR: 15. O2 saturation: 100%. Pain level now: 4/10. --23:42 07/29/20 Suzanna Allen 22:00 07/29/20. BP: 89/60. MAP: 69. HR: 65. RR: 14. O2 saturation: 100%. Pain level now: 010. --23:42 07/29/20 Suzanna Allen 22:30 07/29/20. BP: 93/52. MAP: 65. HR: 61. RR: 16. O2 saturation: 100%. --23:43 07/29/20 Suzanna Allen late entry - 22:30 07/29/20. Reassurance given. Rounding: Pain: assessed pain level. Position: states comfortable. Personal care / toileting: denies toileting needs. Proximity of possessions / care items: call light within easy reach. Plug ins: assured IV pump plugged in; checked status of equipment in use; located all cords, tubes, and lines to prevent fall hazard. --23:43 07/29/20 Suzanna Allen 23:10 07/29/20. BP: 107/55. MAP: 72. HR: 60. RR: 16. O2 saturation: 99%. --23:44 3/1/21 Suzanna Allen late entry - 23:10 07/29/20. Reassurance given. Rounding: Pain: assessed pain level. Position: states comfortable. Personal care / toileting: denies toileting needs. Proximity of possessions / care items: call light within easy reach. Plug ins: assured IV pump plugged in; checked status of equipment in use; located all cords, tubes, and lines to prevent fall hazard. --23:44 07/29/20 Suzanna Allen 00:04 07/30/2020 IV Fluids NS via IV site #1 Discontinued: STOPPED. Total amount infused: 850 mL. IV patency established. IV site checked: no pain, redness, or swelling. IV flushed thoroughly. --00:04 07/30/20 Suzanna Allen.DISPOSITION / DISCHARGE 00:05 07/30/2020 Site #1 removed upon discharge. Catheter intact. Bandaid applied. --00:05 07/30/20 Suzanna Allen Condition at departure: improved. No learning barriers present. Discharge instructions provided and reviewed with the patient. Reviewed warnings. Reviewed medication(s). Treatments reviewed. Reviewed referrals. Patient verbalized understanding. Written instructions provided in Czech. The patient was discharged by the physician. She was discharged home and unaccompanied at time of discharge. She left ambulatory and via private vehicle. Patient driving. --00:05 07/30/20 Suzanna Allen 5 Clinical Report - Nurses [facility] Department [address] [place] [address] Phone #: ext- [phone] 07/29/2020 20:03 Patient: DAMIEN PEREZ Sex: F : 1990 Age: 30y 00:04 07/30/20. BP: 104/63. HR: 57. RR: 15. O2 saturation: 99%. Temp: 98.1 F. Pain level now 07/10. --00:05 07/30/20 Suzanna Allen Departure time: 00:07 07/30/2020. --00:07 07/30/20 Suzanna Allen.Locked/Released at 07/30/2020 00:07 by Suzanna Allen Name Value Range Interpretation Code Description Data Meghna rce(s) Supporting Document(s) ID Date Data Source [id number] 07/29/2020 08:08:00 PM EST [facility] 1 Clinical Report - Physicians/Mid Levels [facility] Department [address] [place] [address] Phone #: ext- [phone] 07/29/2020 20:03 Patient: DAMIEN PEREZ Sex: F : 1990 Age: 30y Time Seen: 20:04 07/29/2020; initial patient contact. Arrived- By private vehicle. Historian- patient. Disposition decision: 00:00 07/30/2020.HISTORY OF PRESENT ILLNESS Chief Complaint: ABDOMINAL PAIN and LLQ, left pelvic area. This started 3 days ago and is still present. It was gradual in onset and has been constant. It is described as "pain" and sharp and it is described as located in the pelvic area and in the left lower quadrant and left pelvis. At its maximum, severity described as severe and 8 / 10. When seen in the E.D., severity described as severe and 8 / 10. Modifying factors- worsened by movement. Not relieved by anything. The patient has had nausea. No loss of appetite, vomiting or diarrhea. (pt has Hx of IBS and recurrent constipation, no BM in 1 week, took glycerin supp., colace, miralax, mag citrate, fleet enema in last 3 days; pt also early from positive home preg. test, LMP: 06-09-20, EDC: 03-16-21, 6 5/7 weeks, no CLINICAL INFORMATICS SPECIALIST visit yet; pt has only lt ovary and lt tube in last 4 yrs, re. s/p rt oophorectomy rt salpingectomy). No recent travel. Similar symptoms previously. None. Recent medical care: Not recently seen/assessed.REVIEW OF SYSTEMSThe patient has had severe constipation but not had weight loss. No black stools, hematemesis, difficultywith urination, pain with urination or urinary frequency. No bloody stools, fever, headache, sore throat orblurred vision. No chest pain, difficulty breathing, cough, joint pain or skin rash. No chills or back pain.Currently : LNMP: 06-09-20 EDC: 03-16-21 6 5/7 wks In 1st trimester. confirmed withhome test. Has had no care. G 4. P 3. Last bowel movement: 7 days ago. All other systemsreviewed and are negative.PAST HISTORYSee nurses notes. Problems: ADHD - Attention Deficit Hyperactivity Disorder. Ovarian Cyst. UTI - Urinary Tract Inf ection. Migraine Headache. Irritable bowel syndrome (disorder). Additional Surgeries: Oophorectomy. (Right) 2 Clinical Report - [facility] Emergency Department [address] [place] [address] Phone #: ext- [phone] 07/29/2020 20:03 ---- Patient: DAMIEN PEREZ [facility]#: [id number] Sex: F : 1990 Age: 30y Salpingectomy. (Right). Medications: Zofran Oral, as needed. Mydayis Oral (Capsule Extended Release 24 Hour 37.5 mg) (has not taken in 2 weeks). Allergies: No Known Drug Allergy. Pharmacy of choice [facility].SOCIAL HISTORYNever smoker. No alcohol use or drug use.ADDITIONAL NOTESThe nursing notes have been reviewed with agreement regarding the chief complaint, HPI, ROS, PMH andpatient medications and allergies.PHYSICAL EXAMVital Signs: 07/29/2020 20:03 BP: 144/91. MAP: 108. HR: 98. RR: 16. O2 saturation: 100%. Temp: 98.7F. Pain level now: 01/07. Have been reviewed. Oxygen saturation normal.Appearance: Alert. Oriented X3. No acute distress. Anxious.Eyes: Pupils equal, round and reactive to light. Eyes normal inspection.ENT: Nose normal. Pharynx normal.Neck: Normal inspection. Neck supple.CVS: Normal heart rate and rhythm. Heart sounds normal. Pulses normal.Respiratory: No respiratory distress. Painless inspiration. Breath sounds normal. Chest nontender.Abdomen: Soft. Mild tenderness in the left lower quadrant. No guarding or rebound tenderness. Bowelsounds normal. No organomegaly. No mass. Femoral pulses equal.Back: Normal inspection. No CVA tenderness.Rectal: Rectal exam normal and nontender. (no stool in rectum, empty).Skin: Skin warm and dry. Normal skin color. No rash. Normal skin turgor.Extremities: Extremities exhibit normal ROM. No lower extremi ty edema.Neuro: Oriented X 3. No motor deficit. No sensory deficit.LABS, X-RAYS, AND EKGPelvic Sonogram: REPORT SUBMISSION DATE: Jul 29, 2020 11:38:26 PM EST NAME: DAMIEN PEREZ STUDY INITIATED: Jul 29, 2020 10:44:08 PM EST STUDY RECEIVED: Jul 29, 2020 11:16:32 PM EST GENDER: F MODALITY TYPE: US\\SR : 89 DESCRIPTION: US OB 1ST TRI W TV IF NEEDED 3 Clinical Report - [facility] Emergency Department [address] [place] [address] Phone #: ext- [phone] 07/29/2020 20:03 Patient: DAMIEN PEREZ Sex: F : 1990 Age: 30yINSTITUTION[facility] ORDER[facility] PHYSICIAN: Reynaldo AmosION #: [id number] HISTORY:ULTRASOUND PELVIS TRANSABDOMINALCOMPARISON: US\\SR - US PELVIC - 12/26/2018 03:09 AM EDTHISTORY: US OB 1ST TRI W TV IF NEEDED ABD Pain/CrampingTECHNIQUE:Ultrasound images through the pelvis obtained via transabdominal approach.FINDINGS:Uterus measures 4.7 x 5.9 x 10.0 cm.There is a single live intrauterine gestation identified, 7 weeks and 0 days by crown-rump length. heart rate is detected at 125 bpm.Right ovary is absent by history. Left ovary contains a 2.4 cm cyst. Doppler flow is detected in the leftovary.No free fluid.ImpressionSingle live intrauterine gestation, 7 weeks and 0 days.Post right oophorectomy.A 2.4 cm left ovarian cyst.Electronically signed on Jul 29, 2020 11:38:26 PM EST by:Marilee Kuo, [employer]. Study type: obstetrical evaluation. The study was interpretedby the radiologist.Laboratory Tests: Laboratory tests have been ordered, with results reviewed and considered in themedical decision making process.US OB 1ST TRI W TV IF NEEDED: (CLARA: 07/29/2020 21:45) ( MsgRcvd 07/29/2020 23:38) Finalresults Test Result Flag Units (Reference) US OB 1ST TRI W TV [place] [address] ---------NAME--------- NUMBER SEX AGE ADMIT DISC. XRAY# F/C TYPE ANA QUEZADA [id number] F 30 07/29/20 [id number] SB2 E/R 4 Clinical Report - [facility] [address] [place] [address] Phone #: ext- [phone] 07/29/2020 20:03 Patient: DAMIEN PEREZ Sex: F : 1990 Age: 30y DATE OF : 1990 M/R# [id number] #: [id number] TR-03 LOCATION: EMERGENCY DEPT TRANSCRIBED: 07/29/20 23:38 IF US OB 1ST TRI W TV IF NEEDED [id number] COMPLETED:07/29/20 23:15 ADB 5345 Reason(s): left pelvic pain, , LMP: 06-09-20, 6-7 weeks -- PHYSICIAN: ISMAEL GUTIERREZ -- -- R A D I O L O G Y R E P O R T -- PATIENT HISTORY: US OB 1ST TRI W TV IF NEEDED ABD Pain/Cramping ULTRASOUND PELVIS TRANSABDOMINAL -- -- COMPARISON: US -- HISTORY: US OB 1ST TRI W TV IF NEEDED ABD Pain/Cramping -- -- TECHNIQUE: -- Ultrasound images through the pelvis obtained via transabdominal approach. -- -- FINDINGS: -- Uterus measures 4.7 x 5.9 x 10.0 cm. There is a single live intrauterine gestation identified, 7 weeks and 0 days by crown-rump length. heart rate is detected at 125 bpm. Right ovary is absent by history. Left ovary contains a 2.4 cm cyst. Doppler flow is detected in the left ovary. -- No free fluid. -- -- IMPRESSIONS: -- Single live intrauterine gestation, 7 weeks and 0 days. -- Post right oophorectomy. -- A 2.4 cm left ovarian cyst. -- -- Electronically Signed By: Tyrone Harvey M.D. , Radiologist Date/Time: 07/29/20 23:38CBC w Diff: (CLARA: 07/29/2020 20:05) ( MsgRcvd 07/29/2020 20:47) Final results Test Result Flag Units (Reference) CBC W/AUTOMATED DIFF COMPLETE BLOOD COUNT WBC 7.4 10/uL (4.2 - 11.0) RBC 4.38 10/uL (4.20 - 5.40) HEMOGLOBIN 14.0 g/dL (12.0 - 16.0) HEMATOCRIT 40.8 % (37.0 - 47.0) MCV 93.2 fL (81.0 - 101) MCH 32.0 pg (27.0 - 34.0) MCHC 34.3 g/dL (31.0 - 36.0) RDW 12.1 % (11.5 - 14.5) PLATELETS 196 10/uL (150 - 450) 5 Clinical Report - [facility] [address] [place] [address] Phone #: ext- [phone] 07/29/2020 20:03 Patient: DAMIEN PEREZ Sex: F : 1990 Age: 30y MPV 11.0 H fL (7.4 - 10.4) NEUT 69.7 % (37.0 - 80.0) LYMPH 24.2 L % (25.0 - 40.0) MONO 5.2 % (3.0 - 8.0) EOS 0.1 % (0.0 - 7.0) BASO 0.4 % (0.0 - 2.5) %IG 0.4 H % (0.0 - 0.0) %NRBC 0.0 % (0.0 - 0.0) #NEUT 5.18 10/uL (2.00 - 6.90) #LYMPH 1.80 10/uL (0.60 - 3.40) #MONO 0.39 10/uL (0.00 - 0.90) #EOS 0.01 10/uL (0.00 - 0.70) #BASO 0.03 10/uL (0.00 - 0.20) #IG 0.03 10/uL (0.00 - 0.10) #NRBC 0.00 10/uL (0.00 - 0.00) MANUAL DIFF NOT INDICATED RBC MORPH NOT INDICATEDCMP: (CLARA: 07/29/2020 20:05) ( MsgRcvd 07/29/2020 21:13) Final results Test Result Flag Units (Reference) COMPREHENSIVE METABOLIC PANEL COMPREHENSIVE METABOLIC PANEL SODIUM 135 mEq/L (134 - 153) POTASSIUM 3.8 mEq/L (3.6 - 5.0) CHLORIDE 100 mEq/L (98 - 107) CO2 24 MEQ/L (22 - 30) GLUCOSE 91 MG/DL (70 - 99) BUN 9 MG/DL (7 - 21) CREATININE 0.6 L MG/DL (0.7 - 1.5) BUN/CREAT 15 (8 - 27) TOTAL PROTEIN 8.0 G/DL (6.3 - 8.2) ALBUMIN 4.8 G/DL (3.9 - 5.0) GLOBULIN 3.2 GM/DL (2.4 - 3.2) A/G RATIO 1.5 (0.8 - 2.0) CALCIUM 9.6 MG/DL (8.4 - 10.2) TOTAL BILI <0.7 MG/DL (0.2 - 1.3) ALKALINE PHOS 49 U/L (38 - 126) SGOT/AST 17 U/L (5 - 40) SGPT/ALT 12 U/L (7 - 56) ANION GAP 11.0 mmol/L (8.0 - 16.0) AGE 30 yrs NON-AA GFR >60 mL/min AFR AMER GFR >60 mL/min Male GFR Interprentation 20-49 yrs >60 mL/min Ejhlgq48-41 yrs >56 mL/min Normal 60-69 yrs >49 mL/min Normal 70-79yrs>42 mL/min Normal 80 and above >35 mL/min Normal Female GFRInterpretation 20-39 yrs >60 mL/min Normal 40-49 yrs >58 mL/minNormal 50-59 yrs >51 mL/min Normal 60-69 yrs >45 mL/min Lawxpc19-09 yrs >39 mL/min Normal 80 and above >32 mL/min NormalLipase: (CLARA: 07/29/2020 20:05) ( MsgRcvd 07/29/2020 21:10) Final results Test Result Flag Units (Reference) LIPASE 25 U/L (13 - 60)Urinalysis: (CLARA: 07/29/2020 20:05) ( MsgRcvd 07/29/2020 20:42) Final results Test Result Flag Units (Reference) URINALYSIS 6 Clinical Report - [facility] [address] [place] [address] Phone #: ext- [phone] 07/29/2020 20:03 Patient: DAMIEN PEREZ Sex: F : 1990 Age: 30y URINALYSIS SOURCE R COLOR yellow (NORMAL: Yello CLARITY hazy (NORMAL: Clear SPEC GRAVITY 1.010 (1.001 - 1.030 pH 6 (5 - 9) GLUCOSE NORM (NORMAL: Negat BILIRUBIN NEG (NORMAL: Negat KETONE NEG (NORMAL: Negat PROTEIN NEG (NORMAL: Negat NITRITE NEG (NORMAL: Negat BLOOD NEG (NORMAL: Negat LEUK EST NEG (NORMAL: Negat UROBILINOGEN NOR (less than 1.0 MICROSCOPIC Not Indicate Type Rh: (CLARA: 07/29/2020 20:05) ( NvgRcvd 07/29/2020 21:17) Final results Test Result Flag Units (Reference) ABO GROUP A RH TYPE NEGATIVE { ABO/RH REENTER A NEGATIVE Beta-HCG, Quant Serum: (CLARA: 07/29/2020 20:05) ( MsgRcvd 07/29/2020 21:25) Final results Test Result Flag Units (Reference) HCG QUANT 57607.0 mIU/mL Interpretation: Less than 5 mU/mL: Negative 6-10 mU/mL: Borderline (suggest repeat in 48 hours) >10: Positive Approx HCG range (mU/mL) Weeks post LMP 5.4-708 mU/mL 3-4 Weeks 217-93933 mU/mL 5-6 Weeks 4059-458980 mU/mL 7-8 Weeks 02211-359254 mU/mL 9-10 Weeks 76433-95295 mU/mL 12-14 Weeks 41122-29722 mU/mL 15-16 Weeks 8240-55997 mU/mL 17-18 Weeks Lactic Acid: (CLARA: 07/29/2020 20:05) ( MsgRcvd 07/29/2020 20:47) Final results Test Result Flag Units (Reference) LACTIC ACID 1.1 MMOL/L (0.2 - 2.2).PROGRESS AND PROCEDURESCourse of Care: 21:45 07/29/20. workup all in and reviewed [place] [address], UAneg., A negative; will do pelvic US 23:58 07/29/20. pelvic US results in and show LIUP 7 weeks w small lt ov. cyst; pt doi ng better, made aware of results, will f/u w CLINICAL INFORMATICS SPECIALIST within 2 days; pt understands and agrees d/c instructions. Patient counseled in person regarding the patient's stable condition, test results, diagnosis and need for follow-up. Patient agrees with plan of care. Disposition: Condition: good and stable. Discharge decision based on the following: patient's condition is stable; patient's condition is improved; 7 Clinical Report - [facility] Emergency Department [address] [place] [address] Phone #: ext- [phone] 07/29/2020 20:03 Patient: DAMIEN PEREZ [facility]#: [id number] Sex: F : 1990 Age: 30y patient is ambulatory; patient is active; patient drinking fluids; patient eating; patient's pain is controlled; patient's exam is improved; no abnormal test results; improving condition on multiple repeat evaluations; social support is good; transportation is available; follow-up is available; clinical impression is consistent with outpatient treatment.CLINICAL IMPRESSION First trimester . (7 weeks). Single simple left ovarian cyst.INSTRUCTIONS Drink plenty of fluids. Avoid alcohol and NSAIDS. NSAIDS include aspirin, ibuprofen (Advil) and naproxen (Aleve). Avoid fatty, fried/greasy, lactose-containing (such as milk, cheese and ice cream), salty and spicy foods. No alcohol. Do not smoke. Warnings: Further evaluation is necessary (CLINICAL INFORMATICS SPECIALIST). It is very important to follow up with a healthcare provider. GENERAL WARNINGS: Return or contact your physician immediately if your condition worsens or changes unexpectedly, if not improving as expected, or if other problems arise. SPECIFICALLY, return if you develop pain in the abdomen, pelvis, back or shoulder, fever, vomiting, the inability to keep fluids down, blood in vomitus, blood in diarrhea, fainting, lightheadedness or vaginal bleeding. Your Current Medications: Your current home medications have been reviewed. CONTINUE TAKING THE FOLLOWING MEDICATIONS: Mydayis Oral : Capsule Extended Release 24 Hour 37.5 mg, has not taken in 2 weeks. Zofran Oral : prn. Follow-up: Return to the emergency department as needed. Follow up with an keg washer tomorrow even if well. Call for an appointment. Reason for referral: evaluation and treatment. Summary of care provided to patient via paper. Understanding of the discharge instructions verbalized by patient. Expected course of illness, discharge instructions, activity level, diet, follow-up appointment and risks and benefits of treatment reviewed with patient and understanding verbalized. Agrees to plan of care. Follow-up with: [facility], , , [address] [place] [address], 136 Follow up tomorrow even if well. Call for an appointment. Reason for referral: evaluation and treatment. Summary of care provided to patient via paper. 8 Clinical Report - [facility] Department [address] [place] [address] Phone #: sjk- [phone] 07/29/2020 20:03 Patient: DAMIEN PEREZ Sex: F : 1990 Age: 30y(Electronically signed by Reynaldo Guevara M.D. 07/30/2020 00:09) Name Value Range Interpretation Code Description Data Meghna rce(s) Supporting Document(s) ID Date Data Source [id number] 07/29/2020 11:38:00 [place] [address] ---------NAME--------- NUMBER SEX AGE ADMIT DISC. XRAY# F/C TYPE ANA QUEZADA [id number] F 30 07/29/20 [id number] SB2 E/R DATE OF : 1990 M/R# [id number] #: [id number] TR-03 LOCATION: EMERGENCY DEPT TRANSCRIBED: 07/29/20 23:38 IF US OB 1ST TRI W TV IF NEEDED [id number] COMPLETED:07/29/20 23:15 ADB 5345 Reason(s): left pelvic pain, , LMP: 06-09-20, 6-7 weeks PHYSICIAN: ISMAEL GUTIERREZ == R A D I O L O G Y R E P O R T PATIENT HISTORY:US OB 1ST TRI W TV IF NEEDEDABD Pain/CrampingULTRASOUND PELVIS TRANSABDOMINALCOMPARISON: USHISTORY: US OB 1ST TRI W TV IF NEEDED ABD Pain/CrampingTECHNIQUE:Ultrasound images through the pelvis obtained via transabdominal approach.FINDINGS:Uterus measures 4.7 x 5.9 x 10.0 cm.There is a single live intrauterine gestation identified, 7 weeks and 0 days bycrown-rump length. heart rate is detected at 125 bpm.Right ovary is absent by history. Left ovary contains a 2.4 cm cyst. Dopplerflow is detected in the left ovary.No free fluid.IMPRESSIONS:Single live intrauterine gestation, 7 weeks and 0 days.Post right oophorectomy.A 2.4 cm left ovarian cyst.Electronically Signed By:Tyrone Harvey M.D. , RadiologistDate/Time: 07/29/20 23:38 Name Value Range Interpretation Code Description Data Meghna rce(s) Supporting Document(s) ID Date Data Source [id number] 07/29/2020 09:25:00 PM EST [facility] Name Value Range Interpretation Code Description Data Meghna e(s) Supporting Document(s) Choriogonadotropin.intact [Units/volume] in Serum or Plasma 28346.0 mIU/mL [facility] Interpr etation: Less than 5 mU/mL: Negative 6-10 mU/mL: Borderline (suggest repeat in 48 hours) >10: Positive Approx HCG range (mU/mL) Weeks post LMP 5.4-708 mU/mL 3-4 Weeks 217-88260 mU/mL 5-6 Weeks 4059-774720 mU/mL 7-8 Weeks 48862-588338 mU/mL 9-10 Weeks 80478-47623 mU/mL 12-14 Weeks 22058-85432 mU/mL 15-16 Weeks 8240- 69343 mU/mL 17-18 Weeks ID Date Data Source [id number] 07/29/2020 09:17:00 PM EST [facility] Name Value Range Interpretation Code Description Data Meghna rce(s) Supporting Document(s) ABO group [Type] in Blood A [facility] Rh [Type] in Blood NEGATIVE [facility] { ABO/RH REENTER A NEGATIVE ID Date Data Source [id number] 07/29/2020 09:13:00 PM EST [facility] Name Value Range Interpretation Code Description Data Meghna rce(s) Supporting Document(s) COMPREHENSIVE METABOLIC PANEL [facility] COMPREHENSIVE METABOLIC PANEL Sodium [Moles/volume] in Serum or Plasma 135 mEq/L 134 - 153 [facility] Potassium [Moles/volume] in Serum or Plasma 3.8 mEq/L 3.6 - 5.0 [facility] Chloride [Moles/volume] in Serum or Plasma 100 mEq/L 98 - 107 [facility] Carbon dioxide, total [Moles/volume] in Serum or Plasma 24 MEQ/L 22 - 30 [facility] Glucose [Mass/volume] in Serum or Plasma 91 MG/DL 70 - 99 [facility] BUN 9 MG/DL 7 - 21 [facility] al Creatinine [Mass/volume] in Serum or Plasma 0.6 MG/DL 0.7 - 1.5 L [facility] BUN/CREAT 15 8 - 27 [facility] Protein [Mass/volume] in Serum or Plasma 8.0 G/DL 6.3 - 8.2 [facility] Albumin [Mass/volume] in Serum or Plasma 4.8 G/DL 3.9 - 5.0 [facility] Globulin [Mass/volume] in Serum by calculation 3.2 GM/DL 2.4 - 3.2 [facility] A/G RATIO 1.5 0.8 - 2.0 [facility] Calcium [Mass/volume] in Serum or Plasma 9.6 MG/DL 8.4 - 10.2 [facility] Bilirubin.total [Mass/volume] in Serum or Plasma <0.7 MG/DL 0.2 - 1.3 [facility] Alkaline phosphatase [Enzymatic activity/volume] in Serum or Plasma 49 U/L 38 - 126 [facility] Aspartate aminotransferase [Enzymatic activity/volume] in Serum or Plasma 17 U/L 5 - 40 [facility] Alanine aminotransferase [Enzymatic activity/volume] in Seru m or Plasma 12 U/L 7 - 56 [facility] Anion gap 3 in Serum or Plasma 11.0 mmol/L 8.0 - 16.0 [facility] AGE 30 yrs [facility] Hospit al NON-AA GFR >60 mL/min [facility] Hosp ital AFR AMER GFR >60 mL/min [facility] Ho spital Male GFR In terprentation 20-49 yrs >60 mL/min Normal 50-59 yrs >56 mL/min Normal 60-69 yrs >49 mL/min Normal 70-79yrs >42 mL/min Normal 80 and above >35 mL/min Normal Female GFR Interpretation 20-39 yrs >60 mL/min Normal 40-49 yrs >58 mL/min Normal 50-59 yrs >51 mL/min Normal 60-69 yrs >45 mL/min Normal 70-79 yrs >39 mL/min Normal 80 and above >32 mL/min Normal ID Date Data Source [id number] 07/29/2020 09:10:00 PM [facility] Name Value Range Interpretation Code Description Data Meghna rce(s) Supporting Document(s) Lipase [Enzymatic activity/volume] in Serum or Plasma 25 U/L 13 - 60 [facility] ID Date Data Source [id number] 07/29/2020 08:47:00 PM [facility] Value Range Interpretation Code Description Data Meghna rce(s) Supporting Document(s) Lactate [Moles/volume] in Serum or Plasma 1.1 MMOL/L 0.2 - 2.2 [facility] ID Date Data Source [id number] 07/29/2020 08:47:00 PM [facility] Name Value Range Interpretation Code Description Data Meghna rce(s) Supporting Document(s) CBC W/AUTOMATED DIFF [facility] COMPLETE BLOOD COUNT Leukocytes [#/volume] in Blood by Automated count 7.4 10^3/uL 4.2 - 1 1.0 [facility] Erythrocytes [#/volume] in Blood by Automated count 4.38 10^6/uL 4. 20 - 5.40 [facility] Hemoglobin [Mass/volume] in Blood 14.0 g/dL 12.0 - 16.0 [facility] Hematocrit [Volume Fraction] of Blood by Automated count 40.8 % 3 7.0 - 47.0 [facility] Erythrocyte mean corpuscular volume [Entitic volume] by Auto mated count 93.2 fL 81.0 - 101 [facility] Erythrocyte mean corpuscular hemoglobin [Entitic mass] by Automated count 32.0 pg 27.0 - 34.0 [facility] Erythrocyte mean corpuscular hemoglobin concentration [Mass/volume] by Automated count 34.3 g/dL 31.0 - 36.0 [facility] Erythrocyte distribution width [Ratio] by Automated count 12.1 % 11.5 - 14.5 [facility] Platelets [#/volume] in Blood by Automated count 196 10^3/uL 150 - 45 0 [facility] Platelet mean volume [Entitic volume] in Blood by Automated count 11.0 fL 7.4 - 10.4 H [facility] Neutrophils/100 leukocytes in Blood by Automated count 69.7 % 37. 0 - 80.0 [facility] Lymphocytes/100 leukocytes in Blood by Manual count 24.2 % 25.0 - 40.0 L [facility] Monocytes/100 leukocytes in Blood by Automated count 5.2 % 3.0 - 8.0 [facility] Eosinophils/100 leukocytes in Blood by Automated count 0.1 % 0.0 - 7.0 [facility] Basophils/100 leukocytes in Blood by Automated count 0.4 % 0.0 - 2.5 [facility] %IG 0.4 % 0.0 - 0.[address] [facility] %NRBC 0.0 % 0.0 - 0.0 [facility] al Neutrophils [#/volume] in Blood by Automated count 5.18 10^3/uL 2.00 - 6.90 [facility] Lymphocytes [#/volume] in Blood by Automated count 1.80 10^3/uL 0.60 - 3.40 [facility] Monocytes [#/volume] in Blood by Automated count 0.39 10^3/uL 0.00 - 0.90 [facility] Eosinophils [#/volume] in Blood by Automated count 0.01 10^3/uL 0.00 - 0.70 [facility] Basophils [#/volume] in Blood by Automated count 0.03 10^3/uL 0.00 - 0.20 [facility] #IG 0.03 10^3/uL 0.00 - 0.10 [facility] H ospital #NRBC 0.00 10^3/uL 0.00 - 0.00 [facility] ospital MANUAL DIFF NOT INDICATED [facility] RBC MORPH NOT INDICATED [facility] Ho spital ID Date Data Source [id number] 07/29/2020 08:42:00 PM EST [facility] Name Value Range Interpretation Code Description Data Meghna rce(s) Supporting Document(s) [facility]IS [facility] URINALYSIS SOURCE R [facility] al COLOR yellow NORMAL: Yellow [facility] ospital CLARITY hazy NORMAL: Clear [facility] Ho spital Specific gravity of Urine by Test strip 1.010 1.001 - 1.030 [facility] pH 6 5 - [facility] Glucose [Mass/volume] in Urine by Test strip NORM NORMAL: Negat [facility] Bilirubin.total [Presence] in Urine by Test strip NEG NORMAL: Negative [facility] Ketones [Presence] in Urine by Test strip NEG NORMAL: Negative [facility] Protein [Mass/volume] in Urine by Test strip NEG NORMAL: Negat [facility] Nitrite [Presence] in Urine by Test strip NEG NORMAL: Negative [facility] BLOOD NEG NORMAL: Negative [facility] Leukocyte esterase [Presence] in Urine by Test strip NEG JULIA L: Negative [facility] Urobilinogen [Mass/volume] in Urine by Test strip NOR less laquita n 1.0 mg/dL [facility] MICROSCOPIC Not Indicate [facility] H ospital ID Date Data Source [id number] 06/10/2020 12:00:00 AM EST [facility] Name Value Range Interpretation Code Description Data Meghna rce(s) Supporting Document(s) Carestart Rapid COVID Antigen Test Positive [facility] This lab was reported by [facility] Maicol ruiz. ID Date Data Source [id number] 06/04/2020 05:20:00 PM EST [facility] Name Value Range Interpretation Code Description Data Meghna rce(s) Supporting Document(s) SARS coronavirus 2 RNA Not Detected [facility] This lab was ordered by [facility] and reported by [facility]. ID Date Data Source [id number] 05/28/2020 07:29:00 AM EST [facility] Name Value Range Interpretation Code Description Data Meghna rce(s) Supporting Document(s) SARS coronavirus 2 RNA [facility] This lab was ordered by [facility] and reported by [facility]. ID Date Data Source [id number] 05/21/2020 03:38:00 PM EST [facility] Name Value Range Interpretation Code Description Data Meghna rce(s) Supporting Document(s) SARS coronavirus 2 RNA [Presence] in Res piratory specimen by ALLI with probe detection [facility] This lab was ordered by [facility] a nd reported by [facility]. ID Date Data Source [id number] 04/30/2020 12:00:00 PM EST [facility] Name Value Range Interpretation Code Description Data Meghna rce(s) Supporting Document(s) SARS coronavirus 2 RNA [facility] This lab was ordered by [facility] and reported by [facility]. ID Date Data Source [id number] 04/16/2020 11:42:00 AM EST [facility] Name Value Range Interpretation Code Description Data Meghna rce(s) Supporting Document(s) SARS coronavirus 2 RNA [facility] This lab was ordered by [facility] and reported by [facility]. ID Date Data Source [id number] 04/09/2020 07:45:00 AM EST [facility] Name Value Range Interpretation Code Description Data Meghna rce(s) Supporting Document(s) SARS coronavirus 2 RNA [facility] This lab was ordered by [facility] and reported by [facility]. ID Date Data Source [id number] 04/02/2020 10:38:00 AM EST [facility] Name Value Range Interpretation Code Description Data Meghna rce(s) Supporting Document(s) SARS coronavirus 2 RNA [facility] This lab was ordered by [facility] and reported by [facility]. ID Date Data Source [id number] 03/26/2020 07:30:00 AM EDT [facility] Name Value Range Interpretation Code Description Data Meghna rce(s) Supporting Document(s) SARS coronavirus 2 RNA [facility] This lab was ordered by [facility] and reported by [facility]. Procedure Social History Code Duration Value Status Description Data Source(s ) Smoking 02/28/2021 12:00:00 AM EDT Never Smoker completed Never S moker eCW1 ([facility]) Smoking 02/28/2021 12:00:00 AM EDT Never Smoker completed Never S moker eCW1 ([facility]) Smoking 02/28/2021 12:00:00 AM EDT Never Smoker completed Never S moker eCW1 ([facility]) Smoking 02/20/2021 12:00:00 AM EDT Never Smoker completed Never S moker eCW1 ([facility]) Smoking 02/13/2021 12:00:00 AM EDT Never Smoker completed Never S moker eCW1 ([facility]) Smoking 01/20/2021 12:00:00 AM EDT Never Smoker completed Never S moker eCW1 ([facility]) Smoking 01/20/2021 12:00:00 AM EDT Never Smoker completed Never S moker eCW1 ([facility]) Smoking 01/20/2021 12:00:00 AM EDT Never Smoker completed Never S moker eCW1 ([facility]) Smoking 01/08/2021 12:00:00 AM EDT Never Smoker completed Never S moker eCW1 ([facility]) Smoking 12/15/2020 12:00:00 AM EDT Never Smoker completed Never S moker eCW1 ([facility]) Smoking 12/09/2020 12:00:00 AM EDT Never Smoker completed Never S moker eCW1 ([facility]) Smoking 12/09/2020 12:00:00 AM EDT Never Smoker completed Never S moker eCW1 ([facility]) Smoking 12/09/2020 12:00:00 AM EDT Never Smoker completed Never S moker eCW1 ([facility]) Smoking 10/30/2020 12:00:00 AM EDT Never Smoker completed Never S moker eCW1 ([facility]) Smoking 10/30/2020 12:00:00 AM EDT Never Smoker completed Never S moker eCW1 ([facility]) Smoking 10/30/2020 12:00:00 AM EDT Never Smoker completed Never S moker eCW1 ([facility]) Smoking 10/30/2020 12:00:00 AM EDT Never Smoker completed Never S moker eCW1 ([facility]) Smoking 10/30/2020 12:00:00 AM EDT Never Smoker completed Never S moker eCW1 ([facility]) Smoking 10/30/2020 12:00:00 AM EDT Never Smoker completed Never S moker eCW1 ([facility]) Smoking 10/08/2020 12:00:00 AM EDT Never Smoker completed Never S moker eCW1 ([facility]) Smoking 10/08/2020 12:00:00 AM EDT Never Smoker completed Never S moker eCW1 ([facility]) Smoking 10/08/2020 12:00:00 AM EDT Never Smoker completed Never S moker eCW1 ([facility]) Smoking 09/19/2020 12:00:00 AM EDT Never Smoker completed Never S moker eCW1 ([facility]) Smoking 09/19/2020 12:00:00 AM EDT Never Smoker completed Never S moker eCW1 ([facility]) Smoking 09/19/2020 12:00:00 AM EDT Never Smoker completed Never S moker eCW1 ([facility]) Smoking 09/19/2020 12:00:00 AM EDT Never Smoker completed Never S moker eCW1 ([facility]) Smoking 09/11/2020 12:00:00 AM EDT Never Smoker completed Never S moker eCW1 ([facility]) Smoking 08/27/2020 12:00:00 AM EDT Never Smoker completed Never S moker eCW1 ([facility]) Smoking 04/02/2020 12:00:00 AM EST Patient has never smoked co mpleted Patient has never smoked MEDENT ([facility]) Smoking 03/05/2020 12:00:00 AM EDT Never Smoker completed Never S moker eCW1 ([facility]) Smoking 01/22/2020 12:00:00 AM EDT Patient has never smoked co mpleted Patient has never smoked MEDENT ([facility]) Vital Signs ID Date Data Source UNK Name Value Range Interpretation Code Description Data Source(s) Body weight 198 [lb_av] 198 [lb_av] eCW1 ([facility]) Body weight 89.81 kg 89.81 kg eCW1 ([facility]) Body height 69 [in_i] 69 [in_i] eCW1 ([facility]) Body mass index (BMI) [Ratio] 29.239 kg/m2 29.2 39 kg/m2 eCW1 ([facility]) Systolic blood pressure 102 mm[Hg] 102 mm[Hg] e CW1 ([facility]) Diastolic blood pressure 70 mm[Hg] 70 mm[Hg] eCW1 ([facility]) Body weight 192 [lb_av] 192 [lb_av] eCW1 ([facility]) Body height 69 [in_i] 69 [in_i] eCW1 ([facility]) Body mass index (BMI) [Ratio] 28.353 kg/m2 28.3 53 kg/m2 eCW1 ([facility]) Systolic blood pressure 120 mm[Hg] 120 mm[Hg] e CW1 ([facility]) Diastolic blood pressure 70 mm[Hg] 70 mm[Hg] eCW1 ([facility]) Body weight 190.4 [lb_av] 190.4 [lb_av] eCW1 ([facility]) Body weight 86.36 kg 86.36 kg eCW1 ([facility]) Body height 69 [in_i] 69 [in_i] eCW1 ([facility]) Body mass index (BMI) [Ratio] 28.117 kg/m2 28.1 17 kg/m2 eCW1 ([facility]) Systolic blood pressure 110 mm[Hg] 110 mm[Hg] e CW1 ([facility]) Diastolic blood pressure 70 mm[Hg] 70 mm[Hg] eCW1 ([facility]) Body weight 189.0 [lb_av] 189.0 [lb_av] eCW1 ([facility]) Body height 69 [in_i] 69 [in_i] eCW1 ([facility]) Body mass index (BMI) [Ratio] 27.91 kg/m2 27.91 kg/m2 eCW1 ([facility]) Systolic blood pressure 108 mm[Hg] 108 mm[Hg] e CW1 ([facility]) Diastolic blood pressure 66 mm[Hg] 66 mm[Hg] eCW1 ([facility]) Body mass index (BMI) [Ratio] 26.877 kg/m2 26.8 77 kg/m2 eCW1 ([facility]) Body weight 182 [lb_av] 182 [lb_av] eCW1 ([facility]) Body weight 82.55 kg 82.55 kg W1 ([facility]) Body height 69 [in_i] 69 [in_i] eCW1 ([facility]) Systolic blood pressure 110 mm[Hg] 110 mm[Hg] e CW1 ([facility]) Diastolic blood pressure 70 mm[Hg] 70 mm[Hg] eCW1 ([facility]) Body weight 180.6 [lb_av] 180.6 [lb_av] eCW1 ([facility]) Body height 69 [in_i] 69 [in_i] eCW1 ([facility]) Body mass index (BMI) [Ratio] 26.67 kg/m2 26.67 kg/m2 eCW1 ([facility]) Systolic blood pressure 118 mm[Hg] 118 mm[Hg] e CW1 ([facility]) Diastolic blood pressure 70 mm[Hg] 70 mm[Hg] eCW1 ([facility]) Body weight 176 [lb_av] 176 [lb_av] eCW1 ([facility]) Body height 69 [in_i] 69 [in_i] eCW1 ([facility]) Body mass index (BMI) [Ratio] 25.991 kg/m2 25.9 91 kg/m2 eCW1 ([facility]) Systolic blood pressure 118 mm[Hg] 118 mm[Hg] e CW1 ([facility]) Diastolic blood pressure 58 mm[Hg] 58 mm[Hg] eCW1 ([facility]) Body weight 175 [lb_av] 175 [lb_av] eCW1 ([facility]) Body weight 79.74 kg 79.74 kg eCW1 ([facility]) Body height 69 [in_i] 69 [in_i] eCW1 ([facility]) Body mass index (BMI) [Ratio] 25.843 kg/m2 25.8 43 kg/m2 eCW1 ([facility]) Systolic blood pressure 104 mm[Hg] 104 mm[Hg] e CW1 ([facility]) Diastolic blood pressure 68 mm[Hg] 68 mm[Hg] eCW1 ([facility]) Body weight 171 [lb_av] 171 [lb_av] eCW1 ([facility]) Body height 69 [in_i] 69 [in_i] eCW1 ([facility]) Body mass index (BMI) [Ratio] 25.252 kg/m2 25.2 52 kg/m2 eCW1 ([facility]) Systolic blood pressure 104 mm[Hg] 104 mm[Hg] e CW1 ([facility]) Diastolic blood pressure 64 mm[Hg] 64 mm[Hg] eCW1 ([facility]) Body weight 169 [lb_av] 169 [lb_av] eCW1 ([facility]) Body height 69 [in_i] 69 [in_i] eCW1 ([facility]) Body mass index (BMI) [Ratio] 24.957 kg/m2 24.9 57 kg/m2 eCW1 ([facility]) Systolic blood pressure 114 mm[Hg] 114 mm[Hg] e CW1 ([facility]) Diastolic blood pressure 62 mm[Hg] 62 mm[Hg] eCW1 ([facility]) Systolic blood pressure 130 mm[Hg] 130 mm[Hg] M EDENT ([facility]) Diastolic blood pressure 78 mm[Hg] 78 mm[Hg] MEDENT ([facility]) Body height 68.1 [in_i] 68.1 [in_i] MEDENT ([facility]) 5'8.10" Body weight 167.50 [lb_av] 167.50 [lb_av] MEDEN T ([facility]) Body mass index (BMI) [Ratio] 25.4 kg/m2 25.4 k g/m2 MEDENT ([facility]) Heart rate 95 /min 95 /min MEDENT ([facility]) Respiratory rate 16 /min 16 /min MEDENT ( [facility]) Body temperature 98.8 [degF] 98.8 [degF] MEDENT ([facility]) Oxygen saturation in Arterial blood by Pulse oximetry 98 % 98 % MEDENT ([facility]) [place] body weight 140 [lb_av] 140 [lb_av] MEDEN T ([facility]) Body weight 173.00 [lb_av] 173.00 [lb_av] MEDEN T ([facility]) Systolic blood pressure 109 mm[Hg] 109 mm[Hg] M EDENT ([facility], [facility]) Diastolic blood pressure 76 mm[Hg] 76 mm[Hg] MEDENT ([facility], [facility]) Heart rate 92 /min 92 /min MEDENT ([facility], [facility]) Respiratory rate 16 /min 16 /min MEDENT ( [facility]) Oxygen saturation in Arterial blood by Pulse oximetry 96 % 96 % MEDENT ([facility], [facility]) Body temperature 99.3 [degF] 99.3 [degF] MEDENT ([facility], [facility]) Body height 69 [in_i] 69 [in_i] MEDENT ([facility]) 5'9" Body mass index (BMI) [Ratio] 25.5 kg/m2 25.5 k g/m2 MEDENT ([facility], [facility]) Body weight 170.6 [lb_av] 170.6 [lb_av] eCW1 ([facility]) Body height 69 [in_i] 69 [in_i] eCW1 ([facility]) Body mass index (BMI) [Ratio] 25.19 kg/m2 25.19 kg/m2 eCW1 ([facility]) Systolic blood pressure 102 mm[Hg] 102 mm[Hg] e CW1 ([facility]) Diastolic blood pressure 62 mm[Hg] 62 mm[Hg] eCW1 ([facility]) Body temperature 99.1 [degF] 99.1 [degF] MEDENT ([facility]) Heart rate 69 /min 69 /min MEDENT ([facility]) Respiratory rate 18 /min 18 /min MEDENT ( [facility]) Oxygen saturation in Arterial blood by Pulse oximetry 99 % 99 % MEDENT ([facility]) [place] body weight 140 [lb_av] 140 [lb_av] MEDEN T ([facility]) Systolic blood pressure 116 mm[Hg] 116 mm[Hg] M EDENT ([facility]) Diastolic blood pressure 68 mm[Hg] 68 mm[Hg] MEDENT ([facility]) Body height 68.1 [in_i] 68.1 [in_i] MEDENT ([facility]) 5'8.10" Body weight 170.38 [lb_av] 170.38 [lb_av] MEDEN T ([facility]) Body mass index (BMI) [Ratio] 25.8 kg/m2 25.8 k g/m2 MEDENT ([facility]) Body height 68.1 [in_i] 68.1 [in_i] MEDENT ([facility]) 5'8.10" [place] body weight 140 [lb_av] 140 [lb_av] MEDEN T ([facility]) Systolic blood pressure 122 mm[Hg] 122 mm[Hg] M EDENT ([facility]) Diastolic blood pressure 68 mm[Hg] [facility] Body weight 173.50 [lb_av] 173.50 [lb_av] MEDEN T ([facility]) Body mass index (BMI) [Ratio] 26.3 kg/m2 26.3 k [facility] Heart rate 94 /min 94 /min [facility] ([facility]) Respiratory rate 18 /min 18 /min [facility] ( [facility]) Body temperature 98.2 [degF] 98.2 [degF] [facility] ([facility]) Oxygen saturation in Arterial blood by Pulse oximetry 987 % 987 % [facility] ([facility]) Patient Treatment Plan of Care Planned Activity Planned Date Details Description Data Source (s) Amphetamine aspartate 2.5 MG / Amphetami ne Sulfate 2.5 MG / Dextroamphetamine saccharate 2.5 MG / Dextroamphetamine Sulfate 2.5 MG Oral Tablet [Adderall] 03/06/2021 12:00:00 AM EDT eCW1 ([facility]) Amphetamine aspartate 2.5 MG / Amphetami ne Sulfate 2.5 MG / Dextroamphetamine saccharate 2.5 MG / Dextroamphetamine Sulfate 2.5 MG Oral Tablet [Adderall] 03/06/2021 12:00:00 AM EDT eCW1 ([facility]) Amphetamine aspartate 2.5 MG / Amphetami ne Sulfate 2.5 MG / Dextroamphetamine saccharate 2.5 MG / Dextroamphetamine Sulfate 2.5 MG Oral Tablet [Adderall] 03/06/2021 12:00:00 AM EDT eCW1 ([facility]) Amphetamine aspartate 2.5 MG / Amphetami ne Sulfate 2.5 MG / Dextroamphetamine saccharate 2.5 MG / Dextroamphetamine Sulfate 2.5 MG Oral Tablet [Adderall] 01/09/2021 12:00:00 AM EDT eCW1 ([facility]) Omeprazole 20 MG Delayed Release Oral Capsule 01/09/2021 12:00:00 A M EDT eCW1 ([facility]) Amphetamine aspartate 2.5 MG / Amphetami ne Sulfate 2.5 MG / Dextroamphetamine saccharate 2.5 MG / Dextroamphetamine Sulfate 2.5 MG Oral Tablet [Adderall] 01/09/2021 12:00:00 AM EDT eCW1 ([facility]) Omeprazole 20 MG Delayed Release Oral Capsule 01/09/2021 12:00:00 A M EDT eCW1 ([facility]) Amphetamine aspartate 2.5 MG / Amphetami ne Sulfate 2.5 MG / Dextroamphetamine saccharate 2.5 MG / Dextroamphetamine Sulfate 2.5 MG Oral Tablet [Adderall] 01/09/2021 12:00:00 AM EDT eCW1 ([facility]) Omeprazole 20 MG Delayed Release Oral Capsule 01/09/2021 12:00:00 A M EDT eCW1 ([facility]) Amphetamine aspartate 2.5 MG / Amphetami ne Sulfate 2.5 MG / Dextroamphetamine saccharate 2.5 MG / Dextroamphetamine Sulfate 2.5 MG Oral Tablet [Adderall] 12/13/2020 12:00:00 AM EDT eCW1 ([facility]) Amphetamine aspartate 2.5 MG / Amphetami ne Sulfate 2.5 MG / Dextroamphetamine saccharate 2.5 MG / Dextroamphetamine Sulfate 2.5 MG Oral Tablet [Adderall] 12/13/2020 12:00:00 AM EDT eCW1 ([facility]) Amphetamine aspartate 2.5 MG / Amphetami ne Sulfate 2.5 MG / Dextroamphetamine saccharate 2.5 MG / Dextroamphetamine Sulfate 2.5 MG Oral Tablet [Adderall] 12/10/2020 12:00:00 AM EDT eCW1 ([facility]) Amphetamine aspartate 2.5 MG / Amphetami ne Sulfate 2.5 MG / Dextroamphetamine saccharate 2.5 MG / Dextroamphetamine Sulfate 2.5 MG Oral Tablet [Adderall] 12/10/2020 12:00:00 AM EDT eCW1 ([facility]) Amphetamine aspartate 2.5 MG / Amphetami ne Sulfate 2.5 MG / Dextroamphetamine saccharate 2.5 MG / Dextroamphetamine Sulfate 2.5 MG Oral Tablet [Adderall] 11/12/2020 12:00:00 AM EDT eCW1 ([facility]) Amphetamine aspartate 2.5 MG / Amphetami ne Sulfate 2.5 MG / Dextroamphetamine saccharate 2.5 MG / Dextroamphetamine Sulfate 2.5 MG Oral Tablet [Adderall] 11/12/2020 12:00:00 AM EDT eCW1 ([facility]) Amphetamine aspartate 2.5 MG / Amphetami ne Sulfate 2.5 MG / Dextroamphetamine saccharate 2.5 MG / Dextroamphetamine Sulfate 2.5 MG Oral Tablet [Adderall] 11/12/2020 12:00:00 AM EDT eCW1 ([facility]) Amphetamine aspartate 2.5 MG / Amphetami ne Sulfate 2.5 MG / Dextroamphetamine saccharate 2.5 MG / Dextroamphetamine Sulfate 2.5 MG Oral Tablet [Adderall] 11/12/2020 12:00:00 AM EDT eCW1 ([facility]) Amphetamine aspartate 2.5 MG / Amphetami ne Sulfate 2.5 MG / Dextroamphetamine saccharate 2.5 MG / Dextroamphetamine Sulfate 2.5 MG Oral Tablet [Adderall] 10/09/2020 12:00:00 AM EDT eCW1 ([facility]) Amphetamine aspartate 2.5 MG / Amphetami ne Sulfate 2.5 MG / Dextroamphetamine saccharate 2.5 MG / Dextroamphetamine Sulfate 2.5 MG Oral Tablet [Adderall] 10/09/2020 12:00:00 AM EDT eCW1 ([facility]) Amphetamine aspartate 2.5 MG / Amphetami ne Sulfate 2.5 MG / Dextroamphetamine saccharate 2.5 MG / Dextroamphetamine Sulfate 2.5 MG Oral Tablet [Adderall] 09/19/2020 12:00:00 AM EDT eCW1 ([facility]) Amphetamine aspartate 2.5 MG / Amphetami ne Sulfate 2.5 MG / Dextroamphetamine saccharate 2.5 MG / Dextroamphetamine Sulfate 2.5 MG Oral Tablet [Adderall] 09/19/2020 12:00:00 AM EDT eCW1 ([facility]) Amphetamine aspartate 2.5 MG / Amphetami ne Sulfate 2.5 MG / Dextroamphetamine saccharate 2.5 MG / Dextroamphetamine Sulfate 2.5 MG Oral Tablet [Adderall] 09/19/2020 12:00:00 AM EDT eCW1 ([facility]) Amphetamine aspartate 2.5 MG / Amphetami ne Sulfate 2.5 MG / Dextroamphetamine saccharate 2.5 MG / Dextroamphetamine Sulfate 2.5 MG Oral Tablet [Adderall] 09/19/2020 12:00:00 AM EDT eCW1 ([facility]) Metoclopramide 5 MG Oral Tablet [Reglan] 08/27/2020 12:00:00 AM EDT eCW1 ([facility])
--- NOTE | 2021-03-17 03:59 | HPEPDOC ---
Obstetrical History & Physical General Date of Admission Mar 17, 2021 at 03:49 History of Present Illness 30 yo female at 39 6/7 weeks by 11 week ultrasound (EDC=03/18/2021) present s with regular contractions for several hours. No bleeding. good movement. Information Provided By: Patient Age: 30 : 4 Term: 3 Pre-term: 0 Abortions: 0 Livin Care Care: Good Care Dating Final EDC: Mar 18, 2021 Final EDC by: 1st trimester (US) Antepartum Course Diagnos(e)s possible succenturiate placenta Past Medical History Past Medical History Medical History OB Hx: 1 05/2010 43 9 5 f [place] 2 08/2012 41 9 8 m [place] 3 03/2018 39 8 13 m [facility] Surgical Hx: 1 .breast augmentation 2. Ovarian surgery Family History Significant Family History: No pertinent family hx Social History Marital Status: Family situation: Spouse/partner home Psychosocial History: No pertinent psych hx Allergies Coded Allergies: No Known Allergies (Unverified , 02/06/21) Medications Scheduled Acetaminophen (Acetaminophen) 500 Mg Tab, 1,000 MG PO Q6H for pain Dextroamphetamine/Amphetamine (Adderall 5 mg Tablet) 5 Mg Tablet, 2 TAB PO twice per day No.137/Iron/Folic Acd ( Vitamin Tablet) 1 Tab Tab, 1 TAB PO DAILY Scheduled PRN Oxycodone/Acetaminophen (Oxycodone-Acetaminophen 5-325) 1 Each Tablet, 1 TAB PO Q6HP PRN for PAIN LEVEL 7-10 Physical Examination Physical Examination GENERAL: Alert and oriented times three. BREAST: . ABDOMEN: Gravid and non-tender to touch. FETUS: Is vertex (VTX) by sterile vaginal examination (SVE), fetus is vertex (VTX) by Nirmal. HEART RATE: Regular rate and rhythm. LUNGS: Clear to auscultation (CTA). EXTREMITIES: No edema. No clonus. Deep tendon reflexes (DTRs) + . Vital Signs/I&O Vital Signs Date Time Temp Pulse Resp B/P (MAP) Pulse Ox O2 Delivery O2 Flow Rate FiO2 03/17/21 03:21 97.1 19 Pertinent Laboratoy Data Blood Type: A- Group B Streptococcus: Negative Vaginal Examination Dilation: 3 cm Effacement: 80% Station: -2 Cervical Consistency: Medium Cervical Position: Posterior Presentation: Cephalic presentation Assessment Variability: Moderate Accelerations: Positive Decelerations: None Tocometer Contractions: Yes Frequency: regular Assessment/Plan Assessment Pt is a 30-year-old (G)4 para (P)3003 at 39+6 weeks by 11-week ultrasound (EDC=03/18/2021) presents to Labor and Delivery in labor. Plan Admit and orient. 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 Diet: regular. Group B Streptococcus (GBS) negative. Labs and intravenous (IV) per unit protocol. Anticipate [normal spontaneous delivery ()]. C-S as appropriate. SARAH APONTE MD Mar 17, 2021 03:59
[2021-03-17] MEDS ORDERED: BUTORPHANOL 2 MG/ML INJ (J0595) IV ONE (04:10)
[2021-03-17] MEDS ORDERED: PROMETHAZINE INJ 25 MG/ML VIAL (J2550) IV ONE (04:10)
[2021-03-17 04:12] LABS: HEMATOCRIT 32.8 % (36.0-47.0); HEMOGLOBIN 11.1 g/dl (12.0-15.5); MEAN CORPUSCULAR HEMOGLOBIN 31.9 pg (27.0-33.0); MEAN CORPUSCULAR HGB CONC 33.8 g/dl (32.0-36.5); MEAN CORPUSCULAR VOLUME 94.3 fl (80.0-96.0); PLATELET COUNT, AUTOMATED 136 10^3/uL (150-450); RED BLOOD COUNT 3.48 10^6/uL (4.00-5.40); WHITE BLOOD COUNT 9.5 10^3/uL (4.0-10.0)
[2021-03-17] MEDS ORDERED: OXYTOCIN DRIP 30 UNITS in IV 1 EA IV SCH (09:10)
--- NOTE | 2021-03-17 09:11 | IPNPDOC ---
Obstetrical Progress Note Date of Service Mar 17, 2021 Subjective pt comfortable with stadol and phenergine, reports contractions becomming less frequent. Objective Vital Signs Date Time Temp Pulse Resp B/P (MAP) Pulse Ox O2 Delivery O2 Flow Rate FiO2 03/17/21 07:39 65 16 100/58 (72) 03/17/21 07:24 97.8 Assessment Variability: Moderate Accelerations: Positive Decelerations: None Heart Rate Tracing: Category I Tocometer Contractions: Yes Frequency: irregular Assessment and Plan Age: 6 : 3 Term: 0 Pre-term: 0 Abortions: 0 Livin Status: Reassuring Group B Streptococcus: Negative Anticipate: Vaginal Delivery Additional Comments Discussed augmentation with IV Pitocin, IV Pitocin ordered and to be started per order. ALEXANDRIA KELLY CNM Mar 17, 2021 09:11
[2021-03-17] MEDS: LR 1,000 ML IV SCH ×2 (09:52→12:35)
[2021-03-17] MEDS ORDERED: FENTANYL 2MCG/ML ROPIVACAINE 0.2% IN 0.9% NACL 100ML IVBAG As Ordered ONE (12:32)
[2021-03-17] MEDS ORDERED: EPIDURAL/PCA KEYS XX PRN (13:15)
[2021-03-17] MEDS ORDERED: FENTANYL/ROPIVACAINE/NACL BAG 100 ML EPIDURAL SCH (13:15)
[2021-03-17] MEDS ORDERED: REFRIGERATOR IV KEYS XX PRN (13:15)
[2021-03-17] MEDS ORDERED: LACTATED RINGER'S 1000 ML IV PRN (13:15)
[2021-03-17] MEDS ORDERED: EPIDURAL COMMENT XX SCH (13:15)
[2021-03-17] MEDS ORDERED: NALOXONE INJ 0.4MG/1ML VIAL (J2310 PER 1MG) IV PRN (13:15)
[2021-03-17] MEDS ORDERED: ePHEDrine SULFATE 25 MG/5 ML(5MG/ML) SYRINGE IV PRN (13:15)
[2021-03-17] MEDS ORDERED: diphenhydrAMINE 50MG/ML VIAL (J1200) IV PRN (13:15)
[2021-03-17] MEDS ORDERED: ONDANSETRON 4MG/2ML VIAL IV PRN (13:15)
--- NOTE | 2021-03-17 18:42 | IPNPDOC ---
Obstetrical Progress Note Date of Service Mar 17, 2021 Subjective Comfortable with epidural but reports she has pressure. Objective Vital Signs Date Time Temp Pulse Resp B/P (MAP) Pulse Ox O2 Delivery O2 Flow Rate FiO2 03/17/21 17:45 98.1 03/17/21 17:40 74 100/56 (71) 03/17/21 13:09 18 Assessment Heart Rate (FHR): 130 Variability: Moderate Accelerations: None Decelerations: None, Variable Heart Rate Tracing: Category I Tocometer Contractions: Yes Frequency: regular Sterile Vaginal Examination Dilation: 9 cm Effacement (%): 100% Station: 0 Cervical Consistency: Soft Cervical Position: Anterior Postion/Presentation: Cephalic presentation Assessment and Plan Age: 30 : 4 Term: 3 Pre-term: 0 Abortions: 0 Livin EGA at Admission: 39.5 Status: Reassuring Group B Streptococcus: Negative Anticipate: Vaginal Delivery (forebag ruptured at 1835, small amount of clear fluid. continue with Pitocin) Additional Comments IV Pitocin is at 12 mu/min. ALEXANDRIA KELLY CNM Mar 17, 2021 18:42
--- NOTE | 2021-03-17 19:24 | DNPDOC ---
[facility] Delivery Note Delivery Note DATE OF DELIVERY: 03/17/2021 at 1905 PREDELIVERY DIAGNOSIS: 39-6/7 weeks' gestation and labor. POST DELIVERY DIAGNOSIS: Delivered. PROCEDURE: Spontaneous vaginal delivery. PLASTIC FABRICATOR: Alexandria Mays CNM with HYACINTH Arce ANESTHESIA: epidural. ESTIMATED BLOOD LOSS: 100 mL. FINDINGS: 7 pound 2 ounce, 3230 gram male infant, Score 9/9, loose nuchal cord times three. DELIVERY SUMMARY: Patient is a 30-year-old 4 now para 4004 who was admitted to labor and delivery. Her labor was augmented with IV Pitocin. SROM with large amount of clear fluid at 1456. She progressed to fully at 1854 and pushed to a living male in SERENITY with restitution to ROT. Loose nuchal cords reduc ed and the anterior shoulder was delivered with gentle downward traction and the corpus followed. The was placed on the maternal abdomen active and crying with stimulation. Three vessel cord clamped after two minutes and cut by father of baby. Placenta delivered spontaneously via Rubio at 1910 with membranes intact. Uterine hemostasis was achieved via rapid infusion of IV Pitocin and fundal massage. The vagina, cervix, and perineum was inspected and bilateral labial abrasions were noted which did not necessitate repair. Mom plans to breastfeed. Mom has named her son Cruz. All counts of instruments and sponges are correct. Both mom and baby are in stable condition. ALEXANDRIA MAYS CNM Mar 17, 2021 19:24
[2021-03-17] MEDS ORDERED: ACETAMINOPHEN 500 MG TAB PO PRN (19:25)
[2021-03-17] MEDS ORDERED: DOCUSATE SODIUM 100MG CAPSULE PO PRN (19:25)
[2021-03-17] MEDS ORDERED: MOM 30ML SUSPENSION UDC PO PRN (19:25)
[2021-03-17] MEDS ORDERED: ACETAMINOPHEN TAB 650MG DOSE (2X325MG) PO PRN (19:25)
[2021-03-17] MEDS ORDERED: METHYLERGONOVINE MALEATE 0.2 MG/ML VIAL (J2210) IM PRN (19:25)
[2021-03-17] MEDS ORDERED: DIBUCAINE 1% OINTMENT 30GM TOP PRN (19:25)
[2021-03-17] MEDS ORDERED: MEASLES,MUMPS,RUBELLA VACCINE INJ (MMR-II) (90707) SC SCH (19:25)
[2021-03-17] MEDS ORDERED: IBUPROFEN 800 MG TAB PO PRN (19:25)
[2021-03-17] MEDS ORDERED: IBUPROFEN 600MG TAB PO PRN (19:25)
[2021-03-18 06:00] VITALS: BP 117/68
[2021-03-18] MEDS ORDERED: PRENATAL VITAMINS CHEWABLE TABLET PO SCH (09:00)
[2021-03-18] MEDS: RHOGAM 300 MCG (1500 IU) INJ (J2790) IM SCH ×2 (10:50→11:17)
[2021-03-18 18:00] VITALS: BP 122/65
== END 2021-03-18 20:48 | disposition home or self-care (01) | DRG 807 ==
LOC: M LDO 03:08 → M LDI 03:49 → M OBS 20:30
PROVIDERS: ADMIT Specialist; ATTEND Specialist
PROC: 10E0XZZ Delivery of Products of Conception, External Approach (ICD-10-PCS; principal; 2021-03-17)
DX: O69.81X0 Labor and delivery complicated by cord around neck, without compression, not applicable or unspecified (principal); Z37.0 Single live birth; Z3A.39 39 weeks gestation of pregnancy; F90.9 Attention-deficit hyperactivity disorder, unspecified type; O99.344 Other mental disorders complicating childbirth; F41.9 Anxiety disorder, unspecified

== ENCOUNTER → 2025-04-03 | Outpatient (RCR) ==
[2020-05-21 19:08] LABS: RSV AMPLIFICATION NEGATIVE (NEGATIVE)
== END ==
LOC: M EMPSSV 03-26 10:18
PROVIDERS: ATTEND Family Medicine
DX: Z20.828 Contact with and (suspected) exposure to other viral communicable diseases (principal)